=== PATIENT | female | born 1935 | race Caucasian/White ===

== ENCOUNTER → 2018-02-04 10:41 | Outpatient (BNVA) | payer MEDICARE, SELFPAY | PROVIDERS: PCP Family Medicine; Visit Provider Psychiatry & Neurology Neurology | DX: G40.319 Generalized idiopathic epilepsy and epileptic syndromes, intractable, without status epilepticus (principal); G25.0 Essential tremor | CPT/HCPCS: 99213 ==

== ENCOUNTER 2018-04-29 12:48 | Outpatient (REF) | payer MEDICARE, SELFPAY ==
[2018-05-01 11:32] LABS: IgA 168 mg/dL (85-499); Interpretation SEE COMMENTS; Tissue Transglutaminase IgA <1.2 U/mL (<4.0)
== END 2018-04-29 13:08 ==
LOC: LBN 12:48
PROVIDERS: PCP Family Medicine; Visit Provider Family Medicine
DX: R19.7 Diarrhea, unspecified (principal)
CPT/HCPCS: 82784; 83516

== ENCOUNTER → 2018-06-09 10:29 | Outpatient (BNVA) | payer MEDICARE, MEDICAID, SELFPAY | PROVIDERS: PCP Family Medicine; Visit Provider Psychiatry & Neurology Neurology | DX: G40.319 Generalized idiopathic epilepsy and epileptic syndromes, intractable, without status epilepticus (principal); G25.0 Essential tremor | CPT/HCPCS: 99214 ==

== ENCOUNTER 2018-07-03 11:56 | Outpatient (REF) | payer MEDICARE, SELFPAY ==
[2018-07-03 12:53] LABS: Abs Immature Grans 0.01 k/cumm (0.0-0.09); Absolute Basophil Count 0.03 k/cumm (0.0-0.2); Absolute Eosinophil Count 0.08 k/cumm (0.0-0.7); Absolute Lymphocyte Count 1.95 k/cumm (1.2-3.4); Absolute Monocyte Count 0.65 k/cumm (0.11-0.7); Absolute Neutrophil Count 1.88 k/cumm (1.2-6.7); Basophils % 0.7; Eosinophils % 1.7; HCT 38.5 % (36.0-46.0); HGB 12.3 g/dL (12.0-15.5); Immature Grans % 0.2; Lymphocytes % 42.4; Mean Corp. HGB Concentration 31.9 g/dL (32.0-36.0); Mean Corpuscular Volume 100.3 fL (80-95); Mean Platelet Volume 11.2 fL (8.0-11.0); Monocytes % 14.1; Neutrophils % 40.9; Platelet Count 180 x1000/uL (130-400); RBC 3.84 m/cumm (4.00-5.20); RBC Distribution Width 14.2 % (11.7-14.6)
[2018-07-03 12:54] LABS: VALPROIC ACID 63.2 ug/mL (50-100)
[2018-07-03 13:19] LABS: ALT 20 U/L (12-78); AST 21 U/L (15-37); Albumin 2.9 g/dL (3.4-5.0); Alkaline Phosphatase 88 U/L (46-116); Anion Gap 6.5 mmol/L (3-11); BUN 10 mg/dL (7-18); Bilirubin, Total 0.2 mg/dL (0.2-1.0); CO2 32.5 mmol/L (21.0-32.0); CREATININE 0.59 mg/dL (0.55-1.02); Calcium 9.1 mg/dL (8.5-10.1); Chloride 103 mmol/L (98-107); Glucose 85 mg/dL (70-100); Potassium 4.4 mmol/L (3.5-5.1); Sodium 142 mmol/L (136-145); Total Protein 6.3 g/dL (6.4-8.2)
== END 2018-07-03 12:16 ==
LOC: LBN 11:56
PROVIDERS: PCP Family Medicine; Visit Provider Family Medicine
DX: I10 Essential (primary) hypertension (principal); R56.9 Unspecified convulsions; R53.83 Other fatigue; R63.5 Abnormal weight gain; Z51.81 Encounter for therapeutic drug level monitoring
CPT/HCPCS: 80053; 80164; 84443; 85025

== ENCOUNTER 2018-07-07 01:12 | Outpatient (CLI) | payer MEDICARE, MEDICAID, SELFPAY ==
--- NOTE | 2018-07-07 12:21 | DI.US_ITS ---
SYMPTOM/DIAGNOSIS: LT SIDED ABD PAIN, CHANGE IN STOOLS, CRAMPING ABDOMEN ULTRASOUND: Routine examination. Comparison CT scan is 01/25/16. The aorta and IVC are normal in caliber. No evidence of a hepatic mass is seen. The liver measures 17 cm. in length. The patient is status post cholecystectomy. No biliary ductal dilatation is seen. The common duct measures .6 cm. The pancreas and spleen are unremarkable. The kidneys show no evidence of a solid mass or obstruction. There are a few echogenic foci seen in the renal pelves bilaterally. These may be vascular in nature. Non obstructing stones cannot be entirely excluded. IMPRESSION: Status post cholecystectomy. No acute abnormality is seen sonographically.
== END 2018-07-07 01:32 ==
PROVIDERS: PCP Family Medicine; Visit Provider Family Medicine
DX: R10.32 Left lower quadrant pain (principal); R19.5 Other fecal abnormalities; Z90.49 Acquired absence of other specified parts of digestive tract
CPT/HCPCS: 76700

== ENCOUNTER 2018-10-05 11:12 | Outpatient (REF) | payer MEDICARE, SELFPAY ==
[2018-10-05 11:39] LABS: Abs Immature Grans 0.03 k/cumm (0.0-0.09); Absolute Basophil Count 0.04 k/cumm (0.0-0.2); Absolute Eosinophil Count 0.04 k/cumm (0.0-0.7); Absolute Lymphocyte Count 1.97 k/cumm (1.2-3.4); Absolute Monocyte Count 0.78 k/cumm (0.11-0.7); Absolute Neutrophil Count 4.57 k/cumm (1.2-6.7); Basophils % 0.5; Eosinophils % 0.5; HCT 39.1 % (36.0-46.0); HGB 13.2 g/dL (12.0-15.5); Immature Grans % 0.4; Lymphocytes % 26.5; Mean Corp. HGB Concentration 33.8 g/dL (32.0-36.0); Mean Corpuscular Hemoglobin 31.4 pg (27.0-33.0); Mean Corpuscular Volume 92.9 fL (80-95); Mean Platelet Volume 10.6 fL (8.0-11.0); Monocytes % 10.5; Neutrophils % 61.6; Platelet Count 233 x1000/uL (130-400); RBC 4.21 m/cumm (4.00-5.20); RBC Distribution Width 14.8 % (11.7-14.6); White Blood Cell Count 7.43 k/cumm (4.4-10.8)
[2018-10-05 11:45] LABS: VALPROIC ACID 63.9 ug/mL (50-100)
[2018-10-05 11:52] LABS: ALT 113 U/L (12-78); AST 59 U/L (15-37); Albumin 2.9 g/dL (3.4-5.0); Alkaline Phosphatase 189 U/L (46-116); Anion Gap 10.9 mmol/L (3-11); BUN 12 mg/dL (7-18); Bilirubin, Total 0.5 mg/dL (0.2-1.0); CO2 28.1 mmol/L (21.0-32.0); CREATININE 0.58 mg/dL (0.55-1.02); Chloride 104 mmol/L (98-107); Glucose 99 mg/dL (70-100); Sodium 143 mmol/L (136-145); TSH 0.78 uIU/mL (0.358-3.74); Total Protein 6.3 g/dL (6.4-8.2)
[2018-10-06 18:56] LABS: Primidone 9.3 mcg/mL (5.0 - 12.0)
== END 2018-10-05 11:32 ==
LOC: LBN 11:12
PROVIDERS: PCP Family Medicine; Visit Provider Family Medicine
DX: R53.83 Other fatigue (principal); R41.82 Altered mental status, unspecified; Z51.81 Encounter for therapeutic drug level monitoring; Z79.899 Other long term (current) drug therapy
CPT/HCPCS: 80053; 80164; 80188; 84443; 85025

== ENCOUNTER 2018-10-05 17:39 | Emergency (ER) | payer MEDICARE, MEDICAID, SELFPAY ==
[2018-10-05] VITALS (35 sets, daily range): BP systolic 107–144; BP diastolic 35–95; PULSE 69–78; RESP 11–25; TEMP 36.6; O2SAT 89–96
--- NOTE | 2018-10-05 17:45 | W.ED.GENAD ---
Discharge Plan Disposition Patient Disposition: HOME Condition: Stable Discharge Details Chief Complaint: Nausea/Vomit/Diar Clinical Impression: Mesenteric panniculitis, UTI (urinary tract infection), Hypokalemia Primary Care Provider: Natasha Araujo ED Provider: Shanelle Krause Home Meds and New Rx's Prescriptions: New cephalexin [Keflex] 500 mg capsule 500 mg PO BID Qty: 13 RF: 0 Continued ergocalciferol (vitamin D2) 50,000 unit capsule 50,000 unit PO QWEEK RF: 0 furosemide 20 mg tablet 20 mg PO DAILY RF: 0 alum-mag hydroxide-simeth 200-200-20 mg/5 mL suspension 30 ml PO PRN PRNRF: 0 bismuth subsalicylate 525 mg/15 mL suspension 525 mg PO ONCE PRNRF: 0 divalproex 500 MG tablet extended release 24 hr 2 tab PO BID Qty: 270 RF: 3 ICaps AREDS 1 EACH tablet,delayed release (DR/EC) 1 cap PO BID RF: 0 acetaminophen [Tylenol] 325 MG tablet 650 mg PO PRN RF: 0 loperamide 2 MG tablet 2 mg PO BID RF: 0 divalproex 500 mg Tablet Extended Release 24 Hr 1,000 mg PO BID RF: 0 potassium chloride 10 mEq Capsule, Extended Release 40 meq RF: 0 diphenoxylate-atropine [Lomotil] 2.5-0.025 mg Tablet 1 tab PO Q6H PRNRF: 0 Certavite-Antioxidant 1 EACH tablet 1 tab PO DAILY RF: 0 primidone 250 MG tablet 500 mg PO HS RF: 0 primidone 250 MG tablet 250 mg PO DAILY RF: 0 propranolol 60 MG capsule,extended release 24 hr 60 mg PO DAILY RF: 0 lactase 1 CAP tablet 1 cap PO DIRECTED RF: 0 Discharge Instructions Instructions: Urinary Tract Infection in Women (ED), Hypokalemia (ED) Additional Instructions: Please return immediately to the emergent if you develop any new or worsening symptoms or if you become otherwise concerned. It is extremely important that you make an appointment to be seen soon as possible in follow-up this visit by your primary care doctor. Referrals: Natasha Araujo MD, [place] [Primary Care Provider] - Discharge Data Discharge Date/Time-TO BE ENTERED AT DEPARTURE: 10/06/18 00:20 Medical Decision Making Melissa Rose is an 83 y/o woman with history of epilepsy, hypertension, anxiety, frequent falls who presented to the emergency department with generalized weakness. On exam patient is well and nontoxic appearing. She has mild diffuse abdominal tenderness, the patient states that she thinks this is chronic. Also has known heart murmur. Benign neurologic exam. Unclear etiology of new weakness, infectious versus metabolic versus less likely ACS, intracranial process versus other. Exam/hx not c/w CVA, acute aortic process, PE, meningitis. Plan for EKG, chest x-ray, CT head, screening labs, UA. Will monitor and reassess. UA shows UTI. Patient reporting that she feels much better on reassessment and would like to go back to the [facility] at this point. I did offer her admission to the hospital for her weakness, but she states that she would much prefer to go back to the [facility]. I did call the [facility] and discuss with the nurse the patient has UTI, patient continues to feel as a standing would be somewhat difficult for her but is doing much better and would like to return to the [facility]. I did attempt to contact Dr. Buchanan, patient's PCP, but she was unavailable. I discussed with the nurse that patient would need to see Dr. Duarte in follow-up within the next 24 to 48 hours. I had a lengthy discussion with the patient regarding return to emergency department precautions, importance of outpatient follow-up with her PCP, and home care. Patient verbalized understanding the plan was amenable. Patient was discharged with clear plan for outpatient follow-up. All questions were answered. Patient placed on care management list for outpatient follow-up with PCP. Medical Records Medical records reviewed: Yes I reviewed the patient's medical records. Imaging Data Radiologic Study: Attestation: I personally reviewed and interpreted this imaging study as follows: Radiologist's impression: AP AND LATERAL CHEST: Comparison is made with 12/19/16. The heart size is normal. The aorta shows calcification but is normal in diameter. The lungs appear clear. No infiltrate, effusion or pulmonary edema is seen. IMPRESSION: No acute abnormality. NONCONTRAST HEAD CT: Comparison is made with . No intracranial hemorrhage, mass or acute infarct is seen. There is mild atrophy consistent with the patient's age. The ventricles are normal in size. There is mild patchiness of the white matter which may reflect microvascular changes. The sinuses and mastoid air cells appear clear. The obits are unremarkable. IMPRESSION: No acute abnormality. CT abdomen/Pelvis: FINDINGS: Limitations: Study is partially limited due to significant motion artifact. Tubes, catheters and devices: A balloon bladder catheter is present. Lungs: Mild atelectasis/scarring of the lung bases without acute findings. ABDOMEN: Liver: The liver is mildly enlarged measuring 18 cm. No acute liver body. Gallbladder and bile ducts: Patient status post cholecystectomy. No biliary ductal dilation. Pancreas: Normal. No ductal dilation. Spleen: Normal. No splenomegaly. Adrenals: Normal. No mass. Kidneys and ureters: Normal. No hydronephrosis. Stomach and bowel: There are several jejunal loops with questionable wall thickening. Jejunal diverticula are noted as well. No other segmental bowel wall thickening. No bowel obstruction. Appendix: No evidence of appendicitis. PELVIS: Bladder: Urinary bladder is underdistended due to intraluminal Porter, and therefore difficult to evaluate. Reproductive: Unremarkable as visualized. ABDOMEN and PELVIS: Intraperitoneal space: No mesenteric free fluid or fluid collections. No pneumoperitoneum. Bones/joints: No acute skeletal abnormality or aggressive osseous lesion. T11 vertebral body hemangioma is noted. Soft tissues: Unremarkable. Vasculature: The vasculature demonstrates diffuse mild atherosclerotic calcification. Lymph nodes: There is mesenteric haziness and several prominent mesenteric lymph nodes. For example, a 1 cm mesenteric lymph node is seen on image 32 series 4. IMPRESSION: 1. Findings as can be seen with sclerosing mesenteritis/mesenteric panniculitis. 2. Questionable mild acute enteritis (jejunitis). No bowel obstruction. 3. Other chronic/incidental findings as detailed above. Lab Data Lab results reviewed: Yes I reviewed the patient's lab results. 10/05/18 19:10 Urine - Reflex from Ua Urine Culture - Pending 10/05/18 18:55 Blood Blood Culture - Pending 10/05/18 18:45 Blood Blood Culture - Pending Laboratory Tests Range/Units 10/05/18 10/05/18 10/05/18 18:25 18:25 18:25 WBC (4.4-10.8) k/cumm 7.47 RBC (4.00-5.20) m/cumm 4.18 Hgb (12.0-15.5) g/dL 13.4 Hct (36.0-46.0) % 38.6 MCV (80-95) fL 92.3 MCH (27.0-33.0) pg 32.1 MCHC (32.0-36.0) g/dL 34.7 RDW (11.7-14.6) % 14.7 H Plt Count (130-400) x1000/uL 236 MPV (8.0-11.0) fL 10.2 Immature Gran % See Differential Neutrophils % 55.0 Lymphocytes % 30.0 Atypical Lymphs % 7 Monocytes % 6.0 Eosinophils % 2.0 Basophils % 0.0 Absolute Neutrophils (1.2-6.7) k/cumm 4.11 Absolute Lymphocytes (1.2-3.4) k/cumm 2.76 Absolute Monocytes (0.11-0.7) k/cumm 0.45 Absolute Eosinophils (0.0-0.7) k/cumm 0.15 Absolute Basophils (0.0-0.2) k/cumm 0.00 Differential Comment Manual differential RBC Morphology Normal Sodium (136-145) mmol/L 143 Potassium (3.5-5.1) mmol/L 3.2 L Chloride (98-107) mmol/L 104 Carbon Dioxide (21.0-32.0) mmol/L 28.9 Anion Gap (3-11) mmol/L 10.1 BUN (7-18) mg/dL 11 Creatinine (0.55-1.02) mg/dL 0.56 Estimated GFR/1.73 m2 (mL/min/1.73m2) >= 60.00 Glucose (70-100) mg/dL 88 Lactate (0.6-1.4) mmol/l 1.8 H Calcium (8.5-10.1) mg/dL 8.9 Total Bilirubin (0.2-1.0) mg/dL 0.4 AST (15-37) U/L 50 H ALT (12-78) U/L 104 H Alkaline Phosphatase (46-116) U/L 174 H Troponin I (0.00-0.06) ng/mL < 0.02 Total Protein (6.4-8.2) g/dL 6.6 Albumin (3.4-5.0) g/dL 2.8 L Lipase (73-393) U/L TSH (0.358-3.74) uIU/mL 1.36 Urine Color (Yellow) Urine Clarity Urine pH (5-8) Ur Specific Stanley (1.005-1.025) Urine Protein (Negative) mg/dL Urine Ketones (Negative) mg/dL Urine Blood (Negative) Urine Nitrite (Negative) Urine Bilirubin (Negative) Urine Urobilinogen (Up TO 0.2) EU/dL Ur Leukocyte Esterase (Negative) Urine RBC Urine WBC (0-5) HPF Ur Epithelial Cells Urine Crystals Urine Bacteria (Negative) HPF Urine Mucus Ur Culture Indicated? Urine Glucose (Negative) mg/dL Range/Units 10/05/18 10/05/18 10/05/18 18:25 19:10 22:34 WBC (4.4-10.8) k/cumm RBC (4.00-5.20) m/cumm Hgb (12.0-15.5) g/dL Hct (36.0-46.0) % MCV (80-95) fL MCH (27.0-33.0) pg MCHC (32.0-36.0) g/dL RDW (11.7-14.6) % Plt Count (130-400) x1000/uL MPV (8.0-11.0) fL Immature Gran % Neutrophils % Lymphocytes % Atypical Lymphs % Monocytes % Eosinophils % Basophils % Absolute Neutrophils (1.2-6.7) k/cumm Absolute Lymphocytes (1.2-3.4) k/cumm Absolute Monocytes (0.11-0.7) k/cumm Absolute Eosinophils (0.0-0.7) k/cumm Absolute Basophils (0.0-0.2) k/cumm Differential Comment RBC Morphology Sodium (136-145) mmol/L Potassium (3.5-5.1) mmol/L Chloride (98-107) mmol/L Carbon Dioxide (21.0-32.0) mmol/L Anion Gap (3-11) mmol/L BUN (7-18) mg/dL Creatinine (0.55-1.02) mg/dL Estimated GFR/1.73 m2 (mL/min/1.73m2) Glucose (70-100) mg/dL Lactate (0.6-1.4) mmol/l Calcium (8.5-10.1) mg/dL Total Bilirubin (0.2-1.0) mg/dL AST (15-37) U/L ALT (12-78) U/L Alkaline Phosphatase (46-116) U/L Troponin I (0.00-0.06) ng/mL < 0.02 Total Protein (6.4-8.2) g/dL Albumin (3.4-5.0) g/dL Lipase (73-393) U/L 255 TSH (0.358-3.74) uIU/mL Urine Color (Yellow) Yellow Urine Clarity Sl cloudy Urine pH (5-8) 6.5 Ur Specific Stanley (1.005-1.025) 1.015 Urine Protein (Negative) mg/dL 100 H Urine Ketones (Negative) mg/dL Trace H Urine Blood (Negative) Moderate H Urine Nitrite (Negative) Negative Urine Bilirubin (Negative) Negative Urine Urobilinogen (Up TO 0.2) EU/dL 0.2 Ur Leukocyte Esterase (Negative) Large H Urine RBC Not Applicable Urine WBC (0-5) HPF >50 Ur Epithelial Cells Not Applicable Urine Crystals Not Applicable Urine Bacteria (Negative) HPF Moderate Urine Mucus Not Applicable Ur Culture Indicated? Yes Urine Glucose (Negative) mg/dL Negative ECG Data Attestation: I personally reviewed and interpreted this ECG (s) as follows: Interpretation: EKG shows sinus rhythm at 73, normal axis, no acute ischemic changes, nondiagnostic EKG HPI General Mode of arrival: EMS. Date/Time Provider Initiated Documentation: 10/05/18 17:45. Limitations to Documentation: no limitations. Information obtained by: patient, RN notes reviewed and old records reviewed. HPI Narrative: Melissa Rose is an 83-year-old woman with history of hypertension, anxiety, frequent falls, epilepsy presenting to the emergency department with generalized weakness. Patient currently resides at the [facility]. Patient reports that over the past few days she has felt more tired than usual. She reports that she saw her PCP today for this. Patient reports that she has had some diarrhea over the past 3 days, but this is not been watery or copious. Last week he is having any pain, patient states no nothing hurts, but when asked specifically about abdominal pain she reports that she has chronic abdominal pain that seems may be a little worse today. Patient states that she usually is able to get out of bed and pivot to a wheelchair, although she states that today she feels too weak all over to do that. She denies fever, cough, shortness of breath, vomiting, rash. She reports that she has been eating and drinking as usual. Related Data Home Medications Medication Instructions Recorded Confirmed divalproex 2 tab PO BID #270 tab NS 12/25/15 10/05/18 ICaps AREDS 1 cap PO BID 03/26/16 10/05/18 Certavite-Antioxidant 1 tab PO DAILY 10/03/16 10/05/18 primidone 250 mg PO DAILY 10/03/16 10/05/18 primidone 500 mg PO HS 10/03/16 10/05/18 propranolol 60 mg PO DAILY 10/03/16 10/05/18 acetaminophen [Tylenol] 650 mg PO PRN tab-cap 11/18/16 10/05/18 lactase 1 cap PO DIRECTED 12/19/16 10/05/18 loperamide 2 mg PO BID 08/12/17 10/05/18 ergocalciferol (vitamin D2) 50,000 50,000 unit PO QWEEK 02/04/18 06/09/18 unit capsule furosemide 20 mg tablet 20 mg PO DAILY 02/04/18 06/09/18 aluminum-mag hydroxide-simethicone 30 ml PO PRN PRN ml 06/09/18 10/05/18 200 mg-200 mg-20 mg/5 mL oral susp bismuth subsalicylate 525 mg/15 mL 525 mg PO ONCE PRN 06/09/18 10/05/18 oral suspension cephalexin [Keflex] 500 mg PO BID #13 cap 10/05/18 diphenoxylate-atropine [Lomotil] 1 tab PO Q6H PRN 10/05/18 10/05/18 divalproex 1,000 mg PO BID 10/05/18 10/05/18 potassium chloride 40 meq 10/05/18 Previous Rx's Medication Instructions Recorded cephalexin [Keflex] 500 mg PO BID #13 cap 10/05/18 Allergies Allergy/AdvReac Type Severity Reaction Status Date / Time ethosuximide Allergy Intermediate Unverified 10/05/18 17:51 lactose AdvReac Intermediate Intolerant Unverified 10/05/18 17:51 Review of Systems Review of Systems Constitutional: denies fevers, reports generalized weakness Eyes: denies eye pain ENT: denies facial pain, dental pain, sore throat Cardiovascular: denies chest pain, edema Respiratory: denies SOB, cough GI: denies vomiting, reports diarrhea, chronic abdominal pain : denies flank pain MSK: denies back pain, neck pain, arthralgias, myalgias Skin: denies rash Neuro: denies headaches, numbness, focal weakness [facility] Medical History Lumbar stenosis with neurogenic claudication (Chronic) Vaginal spotting (Chronic 01/26/16) Urgency of urination (Chronic) Nuclear cataract (Chronic 09/21/13) Low back pain (Chronic) Lactose intolerance (Chronic 04/24/91) 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. She has 4 grown children. She has never driven. She does not smoke, drink ETOH, or use illicit drugs. Exam Narrative Exam Narrative: Constitutional: well and [id number], pleasant, conversing normally HENT: head atraumatic/normocephalic/normal inspection, mucous membranes moist Eyes: conjunctiva normal, sclera normal, pupils 3mm b/l Neck: no stridor, normal ROM, trachea midline Chest: normal inspection Resp: normal work of breathing, LCTAB Cardio: normal rate, normal rhythm, 3/6 systolic murmur GI: abdomen soft, mild generalized tenderness, non-distended Back: normal inspection, no rash Skin: warm, dry, normal color, no rash Neuro: alert, not altered, grossly non-focal, normal tone Ext: Trace edema bilateral lower extremities, no posterior calf tenderness Psych: normal mood, normal affect, normal behavior
--- NOTE | 2018-10-05 18:27 | DI.RAD_ITS ---
SYMPTOM/DIAGNOSIS: WEAKNESS AP AND LATERAL CHEST: Comparison is made with 12/19/16. The heart size is normal. The aorta shows calcification but is normal in diameter. The lungs appear clear. No infiltrate, effusion or pulmonary edema is seen. IMPRESSION: No acute abnormality.
[2018-10-05 18:41] LABS: Abs Immature Grans 0.03 k/cumm (0.0-0.09); HCT 38.6 % (36.0-46.0); HGB 13.4 g/dL (12.0-15.5); Lactate-non-spesis 1.8 mmol/l (0.6-1.4); Mean Corp. HGB Concentration 34.7 g/dL (32.0-36.0); Mean Corpuscular Hemoglobin 32.1 pg (27.0-33.0); Mean Corpuscular Volume 92.3 fL (80-95); Mean Platelet Volume 10.2 fL (8.0-11.0); Platelet Count 236 x1000/uL (130-400); RBC 4.18 m/cumm (4.00-5.20); RBC Distribution Width 14.7 % (11.7-14.6); White Blood Cell Count 7.47 k/cumm (4.4-10.8)
[2018-10-05 19:09] LABS: ALT 104 U/L (12-78); AST 50 U/L (15-37); Albumin 2.8 g/dL (3.4-5.0); Alkaline Phosphatase 174 U/L (46-116); Anion Gap 10.1 mmol/L (3-11); BUN 11 mg/dL (7-18); Bilirubin, Total 0.4 mg/dL (0.2-1.0); CO2 28.9 mmol/L (21.0-32.0); CREATININE 0.56 mg/dL (0.55-1.02); Calcium 8.9 mg/dL (8.5-10.1); Chloride 104 mmol/L (98-107); Glucose 88 mg/dL (70-100); Potassium 3.2 mmol/L (3.5-5.1); Sodium 143 mmol/L (136-145); TSH (W/Ref FT4) 1.36 uIU/mL (0.358-3.74); Total Protein 6.6 g/dL (6.4-8.2)
[2018-10-05 19:20] LABS: Troponin I < 0.02 ng/mL (0.00-0.06)
[2018-10-05 19:22] LABS: Absolute Eosinophil Count 0.15 k/cumm (0.0-0.7); Absolute Lymphocyte Count 2.76 k/cumm (1.2-3.4); Absolute Monocyte Count 0.45 k/cumm (0.11-0.7); Absolute Neutrophil Count 4.11 k/cumm (1.2-6.7); Atypical Lymphocytes % 7; Diff Comment Manual Differential; RBC Morphology Normal
--- NOTE | 2018-10-05 19:25 | DI.CT_ITS ---
SYMPTOMS/DIAGNOSIS: WEAKNESS NONCONTRAST HEAD CT: Comparison is made with [id number]. No intracranial hemorrhage, mass or acute infarct is seen. There is mild atrophy consistent with the patient's age. The ventricles are normal in size. There is mild patchiness of the white matter which may reflect microvascular changes. The sinuses and mastoid air cells appear clear. The obits are unremarkable. IMPRESSION: No acute abnormality.
[2018-10-05 19:42] LABS: Bilirubin Negative (Negative); Blood Moderate (Negative); Clarity Sl Cloudy; Glucose Negative (Negative); Ketones Trace mg/dL (Negative); Leukocyte Esterase Large (Negative); Nitrite Negative (Negative); Specific Gravity 1.015 (1.005-1.025); Urobilinogen 0.2 EU/dL (Up TO 0.2); pH 6.5 (5-8)
--- NOTE | 2018-10-05 19:45 | DI.VRAD_ITS ---
EXAM: XR Chest, 2 Views EXAM DATE/TIME: 10/05/2018 6:27 PM CLINICAL HISTORY: 83 years old, female; Signs and symptoms; Other: Weakness TECHNIQUE: Imaging protocol: XR of the chest, 2 views. COMPARISON: CR CHEST 2 VIEWS PA,LAT 12/19/2016 6:20 PM FINDINGS: Lungs: Unremarkable. No consolidation. Pleural space: Unremarkable. No pleural effusion. No pneumothorax. Heart/Mediastinum: Stable/normal sized cardiomediastinal silhouette. Vasculature: Stable calcified aortic knob. Bones/joints: No acute skeletal abnormality. IMPRESSION: Negative for acute thoracic pathology. Dictated and Authenticated by: Rafita Waters MD. Ordering:LYDIA Timmons MD
--- NOTE | 2018-10-05 19:47 | DI.VRAD_ITS ---
EXAM: CT Head Without Contrast EXAM DATE/TIME: 10/05/2018 6:27 PM CLINICAL HISTORY: 83 years old, female; Signs and symptoms; Other: Weakness TECHNIQUE: Imaging protocol: Axial computed tomography images of the head without contrast. Coronal and sagittal reformatted images were created and reviewed. COMPARISON: CT HEAD AND CSPINE W/O CONTRAST 08/26/2016 9:17 AM FINDINGS: Brain: Age related brain involution is present. No acute intracranial hemorrhage, mass effect, midline shift, or brain herniation. Diffuse subcortical and periventricular white matter hypodensities are most in favor with chronic small vessel disease. Ventricles: Compensatory exvacuo ventriculomegaly is present. Bones/joints: Unremarkable. No acute fracture. Sinuses: Visualized sinuses are unremarkable. No fluid levels. Mastoid air cells: Visualized mastoid air cells are well aerated. No mastoid effusion. Orbits: There have been bilateral intraocular lens replacements. Soft tissues: Unremarkable. IMPRESSION: 1. Negative for acute intracranial pathology. 2. Chronic findings as detailed above. Dictated and Authenticated by: Rafita Waters MD. Ordering:LYDIA Timmons MD
[2018-10-05 19:56] LABS: Lipase 255 U/L (73-393)
[2018-10-05 19:57] LABS: Bacteria Moderate HPF (Negative); C & S Indicated? Yes; WBC >50 HPF (0-5)
--- NOTE | 2018-10-05 20:10 | DI.CT_ITS ---
SYMPTOMS/DIAGNOSIS: ABDOMINAL PAIN CT OF THE ABDOMEN AND PELVIS: Comparison is made with January,. The exam is limited by patient motion. The exam was performed after IV and without oral contrast. The lung bases show dependent changes. The liver, spleen, pancreas, kidneys and adrenals are grossly normal given degree of motion artifact. The patient is status post cholecystectomy. A pelvic catheter is seen in the urinary bladder. There is increased haziness within the mesenteric fat centrally, which could indicate mesenteric panniculitis. This was not seen on the previous exam. There is no bowel dilatation or gross evidence of inflammatory change. The aorta shows calcification but is normal in diameter. IMPRESSION: Increased haziness in the central abdominal fat could indicate mesenteric panniculitis.
[2018-10-05] MEDS: Omnipaque 350 MG/ML 100 ML BTL IJ (20:21)
--- NOTE | 2018-10-05 20:23 | DI.VRAD_ITS ---
EXAM: CT Abdomen and Pelvis With Contrast EXAM DATE/TIME: 10/05/2018 7:41 PM CLINICAL HISTORY: 83 years old, female; Abdominal pain and other: Back; Generalized; Patient HX: Nausea, vomiting, diarhhea and weakness TECHNIQUE: Imaging protocol: Axial computed tomography images of the abdomen and pelvis with intravenous contrast. Coronal and sagittal reformatted images were created and reviewed. Radiation optimization: All CT scans at this facility use at least one of these dose optimization techniques: automated exposure control; mA and/or kV adjustment per patient size (includes targeted exams where dose is matched to clinical indication); or iterative reconstruction. Contrast material: OMNIPAQUE 350; Contrast volume: 100 ml; Contrast route: IV; COMPARISON: CT CHEST FOR PE, ABD PELVIS W 10/03/2016 9:18 PM FINDINGS: Limitations: Study is partially limited due to significant motion artifact. Tubes, catheters and devices: A balloon bladder catheter is present. Lungs: Mild atelectasis/scarring of the lung bases without acute findings. ABDOMEN: Liver: The liver is mildly enlarged measuring 18 cm. No acute liver body. Gallbladder and bile ducts: Patient status post cholecystectomy. No biliary ductal dilation. Pancreas: Normal. No ductal dilation. Spleen: Normal. No splenomegaly. Adrenals: Normal. No mass. Kidneys and ureters: Normal. No hydronephrosis. Stomach and bowel: There are several jejunal loops with questionable wall thickening. Jejunal diverticula are noted as well. No other segmental bowel wall thickening. No bowel obstruction. Appendix: No evidence of appendicitis. PELVIS: Bladder: Urinary bladder is underdistended due to intraluminal Porter, and therefore difficult to evaluate. Reproductive: Unremarkable as visualized. ABDOMEN and PELVIS: Intraperitoneal space: No mesenteric free fluid or fluid collections. No pneumoperitoneum. Bones/joints: No acute skeletal abnormality or aggressive osseous lesion. T11 vertebral body hemangioma is noted. Soft tissues: Unremarkable. Vasculature: The vasculature demonstrates diffuse mild atherosclerotic calcification. Lymph nodes: There is mesenteric haziness and several prominent mesenteric lymph nodes. For example, a 1 cm mesenteric lymph node is seen on image 32 series 4. IMPRESSION: 1. Findings as can be seen with sclerosing mesenteritis/mesenteric panniculitis. 2. Questionable mild acute enteritis (jejunitis). No bowel obstruction. 3. Other chronic/incidental findings as detailed above. Dictated and Authenticated by: Rafita Waters MD. Ordering:LYDIA Timmons MD
[2018-10-05] MEDS: Cephalexin 500 MG CAP PO (22:29)
[2018-10-05] MEDS: Normal Saline 250 ML 500 ML IV (22:37)
[2018-10-05 23:05] LABS: Troponin I < 0.02 ng/mL (0.00-0.06)
[2018-10-05] MEDS: Potassium Chloride 20 MEQ TABCR 40 MEQ PO (23:48)
--- NOTE | 2018-10-07 08:29 | PDOC.ERCMPRO ---
Care Management Progress Note 10/06-Dr.K Krause requested assistance with a PCP (Van) f/u in 1-2 days for UTI. Referral faxed to [facility] this am.
== END 2018-10-06 00:20 | disposition home or self-care (01) ==
PROVIDERS: Emergency Provider Student in an Organized Health Care Education/Training Program; PCP Family Medicine
DX: R53.1 Weakness (principal); K65.4 Sclerosing mesenteritis; E87.6 Hypokalemia; N39.0 Urinary tract infection, site not specified; B96.20 Unspecified Escherichia coli [E. coli] as the cause of diseases classified elsewhere; R29.6 Repeated falls; G40.909 Epilepsy, unspecified, not intractable, without status epilepticus; I10 Essential (primary) hypertension
CPT/HCPCS: 36415; 80053; 83690; 87040; 87077; 93005; 99285; 70450; 71046; 74177; 81003; 81015; 83605; 84443; 84484; 85025; 87086; 87186; 93010; J3490

== ENCOUNTER 2018-10-06 15:17 | Outpatient (REF) | payer MEDICARE, SELFPAY ==
[2018-10-07 22:44] LABS: Specimen Description Feces
[2018-10-08 10:47] LABS: Result Positive
== END 2018-10-06 15:37 ==
LOC: LBN 15:17
PROVIDERS: PCP Family Medicine; Visit Provider Family Medicine
DX: R19.7 Diarrhea, unspecified (principal)
CPT/HCPCS: 87324; 87798

== ENCOUNTER 2018-11-13 22:51 | Outpatient (REF) | payer MEDICARE, MEDICAID, SELFPAY ==
[2018-11-13 22:52] LABS: Bilirubin Negative (Negative); Blood Negative (Negative); Clarity Sl Cloudy; Glucose Negative (Negative); Ketones Negative (Negative); Leukocyte Esterase Large (Negative); Nitrite Negative (Negative); Specific Gravity 1.015 (1.005-1.025); Urobilinogen 0.2 EU/dL (Up TO 0.2)
[2018-11-13 23:03] LABS: RBC 0-2 (0-2)
[2018-11-13 23:04] LABS: Bacteria Many HPF (Negative); C & S Indicated? Yes; Casts Negative LPF (Negative); Crystals Negative HPF (Negative); Epithelial Cells Few HPF (Negative); Mucus Negative (Negative)
== END 2018-11-13 23:11 ==
LOC: LBN 22:51
PROVIDERS: PCP Family Medicine; Visit Provider Family Medicine
DX: R30.0 Dysuria (principal)
CPT/HCPCS: 87077; 81003; 81015; 87086; 87186

== ENCOUNTER 2018-12-01 14:05 | Outpatient (REF) | payer MEDICARE, MEDICAID, SELFPAY ==
[2018-12-01 16:02] LABS: Bilirubin Negative (Negative); Blood Trace-intact (Negative); Clarity Sl Cloudy (Clear); Glucose Negative (Negative); Ketones Negative (Negative); Leukocyte Esterase Moderate (Negative); Nitrite Negative (Negative); Urobilinogen 0.2 EU/dL (Up TO 0.2); pH 5.5 (5-8)
[2018-12-01 16:17] LABS: Bacteria Few HPF (Negative); C & S Indicated? Yes; Casts Negative LPF (Negative); Crystals Negative HPF (Negative); Epithelial Cells Rare HPF (Negative); Mucus Negative (Negative); RBC 0-2 (0-2); WBC 20-50 HPF (0-5)
== END 2018-12-01 14:25 ==
LOC: LBN 14:05
PROVIDERS: PCP Family Medicine; Visit Provider Family Medicine
DX: N39.0 Urinary tract infection, site not specified (principal)
CPT/HCPCS: 87077; 81003; 81015; 87086; 87186

== ENCOUNTER → 2018-12-10 08:57 | Outpatient (BNVA) | payer MEDICARE, MEDICAID, SELFPAY | PROVIDERS: PCP Family Medicine; Visit Provider Psychiatry & Neurology Neurology | DX: G40.319 Generalized idiopathic epilepsy and epileptic syndromes, intractable, without status epilepticus (principal); G25.0 Essential tremor; I10 Essential (primary) hypertension; Z99.3 Dependence on wheelchair | CPT/HCPCS: 99213 ==

== ENCOUNTER 2019-03-30 10:06 | Outpatient (REF) | payer MEDICARE, MEDICAID, SELFPAY ==
[2019-03-30 10:58] LABS: Abs Immature Grans 0.02 k/cumm (0.0-0.09); Absolute Basophil Count 0.03 k/cumm (0.0-0.2); Absolute Eosinophil Count 0.07 k/cumm (0.0-0.7); Absolute Lymphocyte Count 1.92 k/cumm (1.2-3.4); Absolute Monocyte Count 0.62 k/cumm (0.11-0.7); Absolute Neutrophil Count 2.93 k/cumm (1.2-6.7); Basophils % 0.5; Eosinophils % 1.3; HCT 39.8 % (36.0-46.0); HGB 12.8 g/dL (12.0-15.5); Immature Grans % 0.4; Lymphocytes % 34.3; Mean Corp. HGB Concentration 32.2 g/dL (32.0-36.0); Mean Corpuscular Hemoglobin 32.3 pg (27.0-33.0); Mean Corpuscular Volume 100.5 fL (80-95); Mean Platelet Volume 10.8 fL (8.0-11.0); Monocytes % 11.1; Neutrophils % 52.4; Platelet Count 177 x1000/uL (130-400); RBC 3.96 m/cumm (4.00-5.20); RBC Distribution Width 14.8 % (11.7-14.6); White Blood Cell Count 5.59 k/cumm (4.4-10.8)
[2019-03-30 11:15] LABS: ALT 27 U/L (14-59); AST 36 U/L (15-37); Albumin 2.6 g/dL (3.4-5.0); Alkaline Phosphatase 88 U/L (46-116); Anion Gap 9.1 mmol/L (3-11); BUN 9 mg/dL (7-18); Bilirubin, Total 0.3 mg/dL (0.2-1.0); CO2 30.9 mmol/L (21.0-32.0); CREATININE 0.48 mg/dL (0.55-1.02); Calcium 8.8 mg/dL (8.5-10.1); Chloride 104 mmol/L (98-107); Glucose 87 mg/dL (70-100); Magnesium 1.5 mg/dL (1.8-2.4); Sodium 144 mmol/L (136-145); Total Protein 5.9 g/dL (6.4-8.2)
== END 2019-03-30 10:26 ==
LOC: LBN 10:06
PROVIDERS: PCP Family Medicine; Visit Provider Nurse Practitioner Gerontology
DX: I10 Essential (primary) hypertension (principal); R53.83 Other fatigue; R25.2 Cramp and spasm
CPT/HCPCS: 80053; 83735; 85025

== ENCOUNTER 2019-04-06 00:37 | Outpatient (CLI) | payer MEDICARE, MEDICAID, SELFPAY ==
--- NOTE | 2019-04-06 13:00 | DI.CT_ITS ---
EXAM: CT ABDOMEN PELVIS W CLINICAL HISTORY: POSSIBLE MESENTERIC PANNICULITIS, PAIN, DIARRHEA, CRAMPS TECHNIQUE: Imaging Protocol: Axial computed tomography images with coronal and sagittal reformatted images were created and reviewed CONTRAST MATERIAL: Intravenous: Omnipaque 350 Contrast volume:100 mL contrast route:IV - Oral: Yes COMPARISON: CT ABDOMEN PELVIS W from 10/05/2018 FINDINGS: ABDOMEN: There is patient motion artifact. Lung Bases: Dependent atelectatic changes are seen in the lung bases. Liver: Normal density. No measurable mass. The portal, superior mesenteric and splenic veins are rosas nt. Gallbladder and biliary tract: The patient is status post cholecystectomy. There is no biliary ducta l dilatation. Pancreas: Normal density, no abnormal calcifications or inflammatory process. Spleen: Normal. Kidneys: Normal size, contour and axis. No radiodense stones or obstructive uropathy. No masses seen. Adrenal glands: No masses seen. Abdominal Aorta: Abdominal portion non-dilated. Atherosclerosis. PELVIS: Bladder: There is diffuse urinary bladder wall thickening. No intraluminal masses appreciated. Bowel: No obstruction or bowel wall thickening. Peritoneal cavity: No ascites is present. There is decreased haziness in the mesentery compared to t he prior examination. Bones: There are degenerative changes seen in the spine. Grade 1 pseudospondylolisthesis of L4 on L5 is noted. There is a hemangioma in the T11 vertebral body. Reproductive organs: Within normal limits. Lymph nodes: Unremarkable. Impression: 1. Minimal residual haziness in the mesentery compared to the examination from 10/05/2018. 2. Diffuse thickening of the wall of the urinary bladder. May be secondary to an inflammatory or inf ectious process. Please correlate clinically. DATA REPOSITORY: All CT scans at this facility are submitted to the National Radiology Data Registry (NRDR) Dose Index Registry (DIR) with the [employer] (A[employer]). RADIATION OPTIMIZATION: All CT scans at this facility use at least one of these dose optimization te chniques: automated exposure control; mA and/or kV adjustment per patient size (includes targeted exa ms where dose is matched to clinical indication); or iterative reconstruction.
[2019-04-06] MEDS: Omnipaque 350 MG/ML 100 ML BTL IJ (15:15)
== END 2019-04-06 00:57 ==
PROVIDERS: PCP Family Medicine; Visit Provider Nurse Practitioner Gerontology
DX: R10.9 Unspecified abdominal pain (principal); R19.7 Diarrhea, unspecified; N32.9 Bladder disorder, unspecified; K66.8 Other specified disorders of peritoneum
CPT/HCPCS: 74177; J3490

== ENCOUNTER 2019-04-12 10:00 | Outpatient (REF) | payer MEDICARE, MEDICAID, SELFPAY ==
[2019-04-12 11:19] LABS: Abs Immature Grans 0.02 k/cumm (0.0-0.09); Absolute Basophil Count 0.03 k/cumm (0.0-0.2); Absolute Eosinophil Count 0.07 k/cumm (0.0-0.7); Absolute Lymphocyte Count 1.67 k/cumm (1.2-3.4); Absolute Monocyte Count 0.65 k/cumm (0.11-0.7); Absolute Neutrophil Count 3.92 k/cumm (1.2-6.7); Basophils % 0.5; Eosinophils % 1.1; HCT 40.6 % (36.0-46.0); HGB 13.1 g/dL (12.0-15.5); Immature Grans % 0.3; Lymphocytes % 26.3; Mean Corp. HGB Concentration 32.3 g/dL (32.0-36.0); Mean Corpuscular Hemoglobin 32.4 pg (27.0-33.0); Mean Corpuscular Volume 100.5 fL (80-95); Monocytes % 10.2; Neutrophils % 61.6; Platelet Count 210 x1000/uL (130-400); RBC 4.04 m/cumm (4.00-5.20); RBC Distribution Width 15.3 % (11.7-14.6); White Blood Cell Count 6.36 k/cumm (4.4-10.8)
[2019-04-12 11:41] LABS: ALT 96 U/L (14-59); AST 111 U/L (15-37); Albumin 2.7 g/dL (3.4-5.0); Alkaline Phosphatase 233 U/L (46-116); Anion Gap 6.6 mmol/L (3-11); BUN 13 mg/dL (7-18); Bilirubin, Total 0.6 mg/dL (0.2-1.0); CO2 32.4 mmol/L (21.0-32.0); CREATININE 0.46 mg/dL (0.55-1.02); Calcium 8.8 mg/dL (8.5-10.1); Chloride 104 mmol/L (98-107); Glucose 77 mg/dL (70-100); Potassium 3.9 mmol/L (3.5-5.1); Sodium 143 mmol/L (136-145)
[2019-04-12 15:16] LABS: Bilirubin Negative (Negative); Blood Trace-intact (Negative); Clarity Clear (Clear); Glucose Negative (Negative); Ketones Negative (Negative); Leukocyte Esterase Trace (Negative); Nitrite Negative (Negative); Urobilinogen 0.2 EU/dL (Up TO 0.2)
[2019-04-12 15:27] LABS: Bacteria Few HPF (Negative); C & S Indicated? Yes; Casts Negative LPF (Negative); Crystals Negative HPF (Negative); Epithelial Cells Negative HPF (Negative); Mucus Negative (Negative); Other Cells Negative (Negative)
[2019-04-14 15:22] LABS: IgA 198 mg/dL (85-499); Interpretation (See Note); Tissue Transglutaminase IgA <1.2 U/mL (<4.0)
== END 2019-04-12 10:20 ==
LOC: LBN 10:00
PROVIDERS: PCP Family Medicine; Visit Provider Family Medicine
DX: I10 Essential (primary) hypertension (principal); R10.9 Unspecified abdominal pain; R19.7 Diarrhea, unspecified; R53.83 Other fatigue; N32.89 Other specified disorders of bladder
CPT/HCPCS: 80053; 82784; 83516; 87077; 81003; 81015; 85025; 87086; 87186

== ENCOUNTER 2019-04-29 09:32 | Outpatient (REF) | payer MEDICARE, MEDICAID, SELFPAY ==
[2019-04-29 10:37] LABS: HCT 42.1 % (36.0-46.0); Mean Corp. HGB Concentration 33.3 g/dL (32.0-36.0); Mean Corpuscular Hemoglobin 33.5 pg (27.0-33.0); Mean Corpuscular Volume 100.7 fL (80-95); Mean Platelet Volume 10.9 fL (8.0-11.0); Platelet Count 224 x1000/uL (130-400); RBC 4.18 m/cumm (4.00-5.20); RBC Distribution Width 15.2 % (11.7-14.6); White Blood Cell Count 6.58 k/cumm (4.4-10.8)
[2019-04-29 10:57] LABS: VALPROIC ACID 76.2 ug/mL (50-100)
[2019-04-29 10:58] LABS: ALT 54 U/L (14-59); AST 51 U/L (15-37); Albumin 2.9 g/dL (3.4-5.0); Alkaline Phosphatase 264 U/L (46-116); Anion Gap 7.1 mmol/L (3-11); BUN 13 mg/dL (7-18); Bilirubin, Direct 0.17 mg/dL (0.00-0.20); Bilirubin, Total 0.3 mg/dL (0.2-1.0); CO2 31.9 mmol/L (21.0-32.0); CREATININE 0.41 mg/dL (0.55-1.02); Chloride 103 mmol/L (98-107); Glucose 91 mg/dL (74-106); Potassium 4.4 mmol/L (3.5-5.1); Sodium 142 mmol/L (136-145); Total Protein 6.6 g/dL (6.4-8.2)
== END 2019-04-29 09:52 ==
LOC: LBN 09:32
PROVIDERS: PCP Family Medicine; Visit Provider Nurse Practitioner Gerontology
DX: G40.319 Generalized idiopathic epilepsy and epileptic syndromes, intractable, without status epilepticus (principal); G25.0 Essential tremor; I10 Essential (primary) hypertension; R53.83 Other fatigue; Z79.899 Other long term (current) drug therapy; Z51.81 Encounter for therapeutic drug level monitoring
CPT/HCPCS: 80048; 80076; 85027; 80164

== ENCOUNTER 2019-05-03 10:42 | Outpatient (REF) | payer MEDICARE, MEDICAID, SELFPAY ==
[2019-05-03 11:00] LABS: Abs Immature Grans 0.03 k/cumm (0.0-0.09); Absolute Basophil Count 0.02 k/cumm (0.0-0.2); Absolute Eosinophil Count 0.02 k/cumm (0.0-0.7); Absolute Lymphocyte Count 1.56 k/cumm (1.2-3.4); Absolute Monocyte Count 1.33 k/cumm (0.11-0.7); Absolute Neutrophil Count 6.98 k/cumm (1.2-6.7); Basophils % 0.2; Eosinophils % 0.2; HCT 38.6 % (36.0-46.0); HGB 12.4 g/dL (12.0-15.5); Immature Grans % 0.3; Lymphocytes % 15.7; Mean Corp. HGB Concentration 32.1 g/dL (32.0-36.0); Mean Corpuscular Volume 102.7 fL (80-95); Mean Platelet Volume 10.9 fL (8.0-11.0); Monocytes % 13.4; Neutrophils % 70.2; Platelet Count 223 x1000/uL (130-400); RBC 3.76 m/cumm (4.00-5.20); RBC Distribution Width 15.4 % (11.7-14.6); White Blood Cell Count 9.94 k/cumm (4.4-10.8)
[2019-05-03 11:02] LABS: Bilirubin Negative (Negative); Blood Negative (Negative); Clarity Clear (Clear); Glucose Negative (Negative); Ketones Negative (Negative); Leukocyte Esterase Small (Negative); Nitrite Positive (Negative); Specific Gravity 1.015 (1.005-1.025); Urobilinogen 0.2 EU/dL (Up TO 0.2); pH 5.5 (5-8)
[2019-05-03 11:11] LABS: ALT 47 U/L (14-59); AST 40 U/L (15-37); Albumin 2.4 g/dL (3.4-5.0); Alkaline Phosphatase 231 U/L (46-116); Anion Gap 9.4 mmol/L (3-11); BUN 21 mg/dL (7-18); Bilirubin, Total 0.4 mg/dL (0.2-1.0); CO2 30.6 mmol/L (21.0-32.0); CREATININE 0.77 mg/dL (0.55-1.02); Calcium 8.6 mg/dL (8.5-10.1); Chloride 104 mmol/L (98-107); Glucose 119 mg/dL (74-106); Magnesium 1.7 mg/dL (1.8-2.4); Potassium 3.3 mmol/L (3.5-5.1); Sodium 144 mmol/L (136-145)
[2019-05-03 11:15] LABS: Bacteria Few HPF (Negative); Crystals Negative HPF (Negative); Epithelial Cells Rare HPF (Negative); RBC 0-2 HPF (0-2)
[2019-05-03 11:16] LABS: C & S Indicated? C&S Done As Ordered; Casts 0-2 Hyaline LPF (Negative); Mucus Trace (Negative)
[2019-05-03 11:28] LABS: Diff Comment Diff Reviewed; RBC Morphology Normal
[2019-05-04 10:44] LABS: Hepatitis A Antibody IgM Negative (Negative); Hepatitis B Core Antibody Negative (Negative); Hepatitis B surface Ag Negative (Negative); Hepatitis C Ab w Rflx HCV PCR Negative (Negative)
== END 2019-05-03 11:02 ==
LOC: LBN 10:42
PROVIDERS: PCP Family Medicine; Visit Provider Family Medicine
DX: N39.0 Urinary tract infection, site not specified (principal); R19.7 Diarrhea, unspecified; R74.8 Abnormal levels of other serum enzymes
CPT/HCPCS: 80053; 86704; 86709; 86803; 87077; 87340; 81003; 81015; 83735; 85025; 87086; 87186

== ENCOUNTER 2019-05-07 12:09 | Outpatient (REF) | payer MEDICARE, MEDICAID, SELFPAY ==
[2019-05-07 13:40] LABS: Abs Immature Grans 0.02 k/cumm (0.0-0.09); Absolute Basophil Count 0.03 k/cumm (0.0-0.2); Absolute Eosinophil Count 0.05 k/cumm (0.0-0.7); Absolute Lymphocyte Count 1.56 k/cumm (1.2-3.4); Absolute Monocyte Count 0.93 k/cumm (0.11-0.7); Absolute Neutrophil Count 3.37 k/cumm (1.2-6.7); Basophils % 0.5; Eosinophils % 0.8; HCT 42.3 % (36.0-46.0); HGB 13.5 g/dL (12.0-15.5); Immature Grans % 0.3; Lymphocytes % 26.2; Mean Corp. HGB Concentration 31.9 g/dL (32.0-36.0); Mean Corpuscular Hemoglobin 32.9 pg (27.0-33.0); Mean Corpuscular Volume 103.2 fL (80-95); Mean Platelet Volume 10.5 fL (8.0-11.0); Monocytes % 15.6; Neutrophils % 56.6; Platelet Count 261 x1000/uL (130-400); RBC Distribution Width 15.3 % (11.7-14.6); White Blood Cell Count 5.96 k/cumm (4.4-10.8)
[2019-05-07 14:29] LABS: BUN 16 mg/dL (7-18); CREATININE 0.52 mg/dL (0.55-1.02); Chloride 102 mmol/L (98-107); Glucose 101 mg/dL (74-106); Potassium 4.2 mmol/L (3.5-5.1); Sodium 144 mmol/L (136-145)
== END 2019-05-07 12:29 ==
LOC: LBN 12:09
PROVIDERS: PCP Family Medicine; Visit Provider Nurse Practitioner Gerontology
DX: R06.00 Dyspnea, unspecified (principal); J18.9 Pneumonia, unspecified organism
CPT/HCPCS: 80048; 85025; 85379

== ENCOUNTER 2019-05-07 14:49 | Inpatient (IN) | payer MEDICARE, MEDICAID, SELFPAY ==
[2019-05-07] VITALS (40 sets, daily range): BP systolic 118–165; BP diastolic 54–131; PULSE 66–132; RESP 9–25; TEMP 35.9–36.6; O2SAT 89–95
--- NOTE | 2019-05-07 15:47 | ED.GENADUL_ITS ---
Discharge Plan Disposition Patient Disposition: [facility] INPATIENT Condition: Stable Discharge Details Chief Complaint: GenMedical Clinical Impression: Altered mental status, Pneumonia, UTI (urinary tract infection) Admit Date/Time: 05/07/19 18:07 Admit Provider: Maikel Lopez Attending Provider: Maikel Lopez Primary Care Provider: Natasha Araujo ED Provider: Seema Church Discharge Data Discharge Date/Time-TO BE ENTERED AT DEPARTURE: 05/07/19 19:10 Medical Decision Making <Oliva Aguirre DO - Last Filed: 05/08/19 10:38> 1530 -- 83-year-old female from the [facility] with a history of anxiety, depression, hypertension, seizure disorder presents for multiple complaints including hypoxia, altered mental status today as well as constipation for the past 6 days. Patient is complaining of nausea, abdominal pain and rectal pressure. She is currently receiving Cipro for UTI. Oxygen saturation 89 to 90% on room air increased to mid 90s on 2 L nasal cannula. Abdomen is obese and mild to moderately distended with diffuse tenderness. A large amount of light brown stool in rectal vault. A significant amount of stool digitally removed and patient had some relief of symptoms. Differential diagnosis includes ACS, PE, pneumonia, CHF, electrolyte abnormality, arrhythmia, acute abdominal abnormality, UTI. We will place an IV, bolus IV fluids, screening labs, EKG, urinalysis, CT chest abdomen and pelvis. 1600 -- Case endorsed to YESY Paulino to follow-up on labs and imaging and final disposition. Medical Records Medical records reviewed: Yes I reviewed the patient's medical records. <YESY Grigsby - Last Filed: 05/08/19 20:14> Care was transitioned myself from Dr. Aguirre with imaging pending. Please see her note for initial presentation and physical exam findings. CT reviewed by radiologist: FINDINGS: Limitations: Motion artifact limits detail. Artifact off the upper opacified superior vena cava further limits evaluation of the right upper lobe arteries. The patient is rotated toward the right with crowding and tortuosity of the right lower lobe vessels. Pulmonary arteries: No filling defect to indicate pulmonary embolism. The pulmonary arteries demonstrate mild central enlargement, consistent with mild pulmonary hypertension. Aorta: Mild aortic wall calcifications. No aortic aneurysm. No aortic dissection. Lungs/Pleural space: Moderate right pleural effusion with adjacent consolidation. Heart: Mild cardiomegaly. No pericardial effusion. Lymph nodes: Unremarkable. No enlarged lymph nodes. Bones/joints: No acute bony abnormality. Incidental T11 benign hemangioma. Soft tissues: Unremarkable. IMPRESSION: 1. Limited exam. 2. Negative for pulmonary embolism, aortic aneurysm or dissection. 3. Chronic pulmonary hypertension. 4. Moderate right pleural effusion with adjacent consolidation which may represent atelectasis or pneumonia. Liver: Liver is enlarged measuring 19 cm in length. No mass. Gallbladder and bile ducts: Cholecystectomy. Pancreas: Unremarkable. No ductal dilation. Spleen: Unremarkable. No splenomegaly. Adrenals: Unremarkable. No mass. Kidneys and ureters: Unremarkable. No hydronephrosis. Stomach and bowel: Fluid throughout normal caliber small bowel and colon to the rectum. Small amount of semisolid stool in the sigmoid colon. Circumferential low density wall thickening with mucosal and enhancement involving the rectum. There is hypervascularity in this region. Small amount of presacral fluid. No lymphadenopathy. No bowel obstruction or perforation. No pneumatosis intestinalis. Appendix: No evidence of appendicitis. Intraperitoneal space: Unremarkable. No free air. No significant fluid adele ection. Vasculature: Atherosclerotic disease, most pronounced in the superior mesenteric artery with irregular partially calcified plaque producing moderate-severe segmental stenosis at the origin and proximal portion. Distally, the proximal branches are normal caliber and patent. Abdominal aorta is normal caliber with no dissection. Lymph nodes: Nonspecific prominent periportal lymph nodes. Bladder: Unremarkable as visualized. Reproductive: Unremarkable as visualized. Bones/joints: Unremarkable. No acute fracture. Soft tissues: Unremarkable. IMPRESSION: 1. 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 No signs of bowel ischemia. 2. Possible proctitis. 3. No solid stool to indicate constipation. 4. Hepatomegaly. No mass. Patient will be started on regimen for pneumonia. Labs reviewed. No leukocytosis. Lactate 3.3. No gap. AST elevated at 66, this is baseline for the patient. Alk phos elevated at 360, patient has been elevated historically. Albumin low at 2.5, typical for patient. Troponin normal, BNP unremarkable at 474. reviewed sensitivities from patients recent urine culture, not noted to be resistant to any antibiotics. Will begin IV ceftriaxone and PO azithromycin. Will stop the ciprofloxacin. Will discuss disposition furhter with provider at the [facility]. They are unable to complete IV antibiotics at this time. Therefore, will discuss admission with our hospitalist here. Patient remains comfortable and continues to use nasal cannula. Consulted with Dr. Lopez. He agrees to admission for pneumonia, hypoxia and UTI. HPI <Oliva Ken Aguirre DO - Last Filed: 05/08/19 10:38> General Mode of arrival: EMS . Date/Time Provider Initiated Documentation: 05/07/19 14:55 . Limitations to Documentation: altered mental status and physical limitation . Information obtained by: patient and EMS . HPI Narrative: Patient is an 83-year-old female with a history of anxiety, hypertension, seizure disorder, depression presents for hypoxia today at the [facility] in the mid 80s which improved on 2 to 3 L of nasal cannula. Also noted to have a mental status change with decreased orientation which is changed from her baseline. The [facility] also states that she has not had a bowel movement for the past 6 days. Patient states that she has nausea, abdominal pain and feels pressure in her rectum. She denies any vomiting. She is currently on Cipro for urinary tract infection but patient did not know this. She appears to be a poor historian as she has long delay in providing answers or does not know the answer. Related Data Home Medications Medication Instructions Recorded Confirmed ICaps AREDS 1 cap PO BID 03/26/16 05/07/19 Certavite-Antioxidant 1 tab PO DAILY 10/03/16 05/07/19 primidone 250 mg PO DAILY 10/03/16 05/07/19 primidone 500 mg PO DAILY 10/03/16 10/05/18 propranolol 60 mg PO DAILY 10/03/16 05/07/19 acetaminophen [Tylenol] 650 mg PO PRN tab-cap 11/18/16 05/07/19 lactase 1 cap PO DIRECTED 12/19/16 05/07/19 loperamide 2 mg PO BID 08/12/17 10/05/18 ergocalciferol (vitamin D2) 50,000 50,000 unit PO QWEEK 02/04/18 05/07/19 unit capsule furosemide 20 mg tablet 20 mg PO DAILY 02/04/18 05/07/19 aluminum-mag hydroxide-simethicone 30 ml PO PRN PRN ml 06/09/18 05/07/19 200 mg-200 mg-20 mg/5 mL oral susp bismuth subsalicylate 525 mg/15 mL 525 mg PO ONCE PRN 06/09/18 05/07/19 oral suspension diphenoxylate-atropine [Lomotil] 1 tab PO Q6H PRN 10/05/18 05/07/19 divalproex 1,000 mg PO BID 10/05/18 05/07/19 potassium chloride 40 meq 10/05/18 linezolid 600 mg tablet 600 mg PO BID #10 tab 11/18/18 ciprofloxacin HCl 250 mg tablet 250 mg PO BID #14 tab 05/04/19 05/07/19 Lactobacillus acidophilus 1 cap PO DAILY 05/07/19 05/07/19 [Acidophilus] cholecalciferol (vitamin D3) 50,000 unit PO DAILY 05/07/19 05/07/19 [Vitamin D3] magnesium oxide 400 mg PO DAILY 05/07/19 05/07/19 omeprazole 20 mg PO DAILY 05/07/19 05/07/19 ranitidine HCl 300 mg PO DAILY 05/07/19 05/07/19 Previous Rx's Medication Instructions Recorded linezolid 600 mg tablet 600 mg PO BID #10 tab 11/18/18 ciprofloxacin HCl 250 mg tablet 250 mg PO BID #14 tab 05/04/19 Allergies Allergy/AdvReac Type Severity Reaction Status Date / Time ethosuximide Allergy Intermediate Unverified 05/07/19 14:57 lactose AdvReac Intermediate Intolerant Unverified 05/07/19 14:57 General Stated Complaint: GenMedical MILLICENT: 2 Review of Systems <Oliva Aguirre, - Last Filed: 05/08/19 10:38> All systems reviewed & are unremarkable except as noted in HPI and below Constitutional Constitutional: Reports as per HPI, Denies chills and Denies fever(s) Eyes Eyes: Denies blurry vision ENT Ears, Nose, Mouth, and Throat: Denies dizziness, Denies sore throat and Denies throat swelling Cardiovascular Cardiovascular: Denies chest pain and Denies dyspnea Respiratory Respiratory: Denies cough and Denies dyspnea Gastrointestinal Gastrointestinal: Reports abdominal pain, Reports constipation, Denies diarrhea, Reports nausea and Denies vomiting Genitourinary Genitourinary: Denies hematuria and Denies dysuria Musculoskeletal Musculoskeletal: Denies back pain and Denies numbness Integumentary/Breasts Skin/Breast: Denies lesions and Denies rash Neurologic Neurologic: Denies dizziness, Denies focal weakness and Denies numbness Allergic/Immunologic Allergic/Immunologic: Denies throat swelling PFSH <Oliva Aguirre DO - Last Filed: 05/08/19 10:38> Medical History Anxiety (Chronic) 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 KERR S/P RIGHT EYE EXTRACTION 10/05/13; DR. KERR Urgency of urination (Chronic) Vaginal spotting (Chronic 01/26/16) Surgical History Cholecystectomy Extraction of cataract 09/21/13; LEFT 10/05/13; RIGHT H/O tubal ligation (Chronic) Family History Mother Essential hypertension Personal history of malignant neoplasm BREAST Heart disease Stroke Father Personal history of malignant neoplasm BONE Sister Personal history of malignant neoplasm BREAST Heart disease Cirrhosis, alcoholic Transplanted heart Son Arthritis Social History Smoking/Tobacco Use Status: Never Alcohol Intake: never Drug use: Never Substance use type: does not use Housing: fdc Do you feel safe at home: Yes Do you feel safe in your relationship?: Yes Additional Social history: She lives at the [facility]. She has 4 grown children. She has never driven. She does not smoke, drink ETOH, or use illicit drugs. Exam <Oliva Aguirre DO - Last Filed: 05/08/19 10:38> Const General: cooperative, healthy appearing and no acute distress HENMN Head: normal to inspection Face and sinus: normal facial exam Eyes General: appearance normal, both eyes and all related structures Pupils: PERRL EOM: EOM intact bilaterally Neck Neck: normal visual inspection and No submandibular swelling Lymphatic: no lymphadenopathy noted Chest Chest: normal inspection of the chest and no tenderness Resp Effort & Inspection: normal respiratory effort and able to speak in complete sentences Auscultation: clear to auscultation bilaterally Cardio Rate: regular rate Rhythm: regular rhythm GI Inspection: normal to inspection and obesity Palpation: soft, not firm, not rigid and tender (Diffuse) Auscultation: normal bowel sounds and hypoactive bowel sounds Rectal Exam - female: other (Large amount of stool in rectal vault.) Skin General skin exam: no rashes or lesions noted Neuro General: alert, awake and oriented Patient Orientation: Person and Place Speech: speech normal Motor: muscle tone normal throughout Sensory Exam: no sensory deficits noted Extrem General: normal to inspection, full ROM, normal capillary refill, no calf tenderness bilaterally and no edema Psych Appearance: grossly normal Mental Status: mental status grossly normal Speech and Movement: speech and movement normal Affect: normal affect Course <Oliva Aguirre DO - Last Filed: 05/08/19 10:38> Vital Signs Vital signs: Vital Signs Temperature 97.9 F 05/07/19 14:50 Pulse 71 05/07/19 14:50 Respiratory Rate 16 05/07/19 14:50 Blood Pressure 141/61 H 05/07/19 14:50 Pulse Oximetry 94 L 05/07/19 14:50 Temperature 97.9 F 05/07/19 14:50 Temperature Source Temporal Artery Scan 05/07/19 14:50 Pulse 71 05/07/19 14:50 Respiratory Rate 16 05/07/19 14:50 Respiratory Effort Non-Labored 05/07/19 14:50 Respiratory Depth Normal 05/07/19 14:50 Respiratory Pattern Normal 05/07/19 14:50 Blood Pressure 141/61 H 05/07/19 14:50 Blood Pressure Position Sitting 05/07/19 14:50 Pulse Oximetry 94 L 05/07/19 14:50 Oxygen Delivery Method Room Air 05/07/19 14:50 Oxygen Flow Rate 0 05/07/19 14:50 Pain Level 0 05/07/19 14:50 Sign Out <Oliva Aguirre DO - Last Filed: 05/08/19 10:38> Sign Out Data: Sign Out Comment: Follow-up on labs and imaging and final disposition. Last updated by Oliva Aguirre DO at 05/07/19 16:00
[2019-05-07 15:53] LABS: Abs Immature Grans 0.06 k/cumm (0.0-0.09); Absolute Basophil Count 0.04 k/cumm (0.0-0.2); Absolute Eosinophil Count 0.05 k/cumm (0.0-0.7); Absolute Lymphocyte Count 2.09 k/cumm (1.2-3.4); Absolute Monocyte Count 0.89 k/cumm (0.11-0.7); Absolute Neutrophil Count 3.39 k/cumm (1.2-6.7); Basophils % 0.6; Eosinophils % 0.8; HCT 42.2 % (36.0-46.0); HGB 13.4 g/dL (12.0-15.5); Immature Grans % 0.9; Lymphocytes % 32.1; Mean Corp. HGB Concentration 31.8 g/dL (32.0-36.0); Mean Corpuscular Hemoglobin 32.7 pg (27.0-33.0); Mean Corpuscular Volume 102.9 fL (80-95); Mean Platelet Volume 10.2 fL (8.0-11.0); Monocytes % 13.7; Neutrophils % 51.9; Platelet Count 261 x1000/uL (130-400); RBC Distribution Width 15.1 % (11.7-14.6); White Blood Cell Count 6.52 k/cumm (4.4-10.8)
[2019-05-07] MEDS: Normal Saline 500 ML IV ×2 (16:00→18:12)
--- NOTE | 2019-05-07 16:03 | DI.CT_ITS ---
EXAM: CT CHEST PE ABD PELVIS W CLINICAL HISTORY: hypoxic, constipation, abdominal pain,? PE OR SMALL BOWEL OBSTRUCTION TECHNIQUE: Post IV contrast without oral contrast. Axial CT angiography was performed with multi-slice acquisition and multi-planar and/or 3D reconstruc tions. COMPARISON: CT ABDOMEN PELVIS W from 04/06/2019 FINDINGS: Chest CT: The exam is limited by motion artifact. Pulmonary arteries are well opacified with IV cont rast and no emboli are seen. There is dilatation of the pulmonary arteries consistent with pulmonary hypertension. The aorta is normal in diameter and shows mild to moderate calcification. There is no d issection. There is left atrial and left ventricular enlargement. There is a small to moderate sized right pleural effusion with adjacent compressive atelectasis versus infiltrate. There is no pericardi al effusion. Abdomen and pelvic CT: Liver is enlarged. Patient is status post cholecystectomy. There is no biliary dilatation or focal liver lesion. The spleen, adrenals, pancreas, kidneys and urinary bladder are un remarkable. The uterus and ovaries are within normal limits for the patient's age. There is fluid in the colon but no abnormal distension. There is some wall thickening involving the rectum but no signi ficant wall thickening elsewhere. The small bowel is not dilated. There is no ascites. The aorta is n ormal in diameter and shows moderate calcification. Superior mesenteric artery shows moderate to nury re narrowing proximally secondary to plaque. Degenerative changes are seen in the spine. There is a h emangioma in the T11 vertebral body. IMPRESSION: The exam is somewhat limited by patient motion. Right pleural effusion and adjacent atelectasis oliver wilver pneumonia. There is wall thickening of the rectum which could represent proctitis. There are no f indings to suggest bowel ischemia.
[2019-05-07 16:05] LABS: Bilirubin Negative (Negative); Blood Negative (Negative); Clarity Clear (Clear); Glucose Negative (Negative); Ketones Trace mg/dL (Negative); Leukocyte Esterase Negative (Negative); Nitrite Negative (Negative)
[2019-05-07 16:12] LABS: Lactate 3.3 mmol/L (0.6-1.4)
[2019-05-07 16:14] LABS: ALT 52 U/L (14-59); AST 66 U/L (15-37); Albumin 2.5 g/dL (3.4-5.0); Alkaline Phosphatase 360 U/L (46-116); Anion Gap 5.8 mmol/L (3-11); BUN 17 mg/dL (7-18); Bilirubin, Total 0.4 mg/dL (0.2-1.0); CO2 34.2 mmol/L (21.0-32.0); CREATININE 0.64 mg/dL (0.55-1.02); Calcium 8.8 mg/dL (8.5-10.1); Chloride 103 mmol/L (98-107); Glucose 109 mg/dL (74-106); Potassium 4.3 mmol/L (3.5-5.1); Sodium 143 mmol/L (136-145)
[2019-05-07 16:15] LABS: Troponin I < 0.05 ng/Ml (<0.06)
[2019-05-07] MEDS: Omnipaque 350 MG/ML 100 ML BTL IJ (16:28)
[2019-05-07 16:34] LABS: Magnesium 1.8 mg/dL (1.8-2.4); NT-proBNP 474 pg/mL (<300)
--- NOTE | 2019-05-07 17:15 | DI.VRAD_ITS ---
PROCEDURE INFORMATION: Exam: CT Angiography Chest With Contrast Exam date and time: 05/07/2019 3:46 PM Age: 83 years old Clinical history: Generalized; Patient HX: Hypoxic, constipation, abdominal pain TECHNIQUE: Imaging protocol: Computed tomographic angiography of the chest with intravenous contrast. 3D rendering: MIP reconstructed images were created and reviewed. COMPARISON: No relevant prior studies available. FINDINGS: Limitations: Motion artifact limits detail. Artifact off the upper opacified superior vena cava further limits evaluation of the right upper lobe arteries. The patient is rotated toward the right with crowding and tortuosity of the right lower lobe vessels. Pulmonary arteries: No filling defect to indicate pulmonary embolism. The pulmonary arteries demonstrate mild central enlargement, consistent with mild pulmonary hypertension. Aorta: Mild aortic wall calcifications. No aortic aneurysm. No aortic dissection. Lungs/Pleural space: Moderate right pleural effusion with adjacent consolidation. Heart: Mild cardiomegaly. No pericardial effusion. Lymph nodes: Unremarkable. No enlarged lymph nodes. Bones/joints: No acute bony abnormality. Incidental T11 benign hemangioma. Soft tissues: Unremarkable. IMPRESSION: 1. Limited exam. 2. Negative for pulmonary embolism, aortic aneurysm or dissection. 3. Chronic pulmonary hypertension. 4. Moderate right pleural effusion with adjacent consolidation which may represent atelectasis or pneumonia. PROCEDURE INFORMATION: Exam: CT Abdomen And Pelvis With Contrast Exam date and time: 05/07/2019 3:46 PM Age: 83 years old Clinical history: Generalized; Patient HX: Hypoxic, constipation, abdominal pain TECHNIQUE: Imaging protocol: Computed tomography of the abdomen and pelvis with intravenous contrast. COMPARISON: No relevant prior studies available. FINDINGS: Liver: Liver is enlarged measuring 19 cm in length. No mass. Gallbladder and bile ducts: Cholecystectomy. Pancreas: Unremarkable. No ductal dilation. Spleen: Unremarkable. No splenomegaly. Adrenals: Unremarkable. No mass. Kidneys and ureters: Unremarkable. No hydronephrosis. Stomach and bowel: Fluid throughout normal caliber small bowel and colon to the rectum. Small amount of semisolid stool in the sigmoid colon. Circumferential low density wall thickening with mucosal and enhancement involving the rectum. There is hypervascularity in this region. Small amount of presacral fluid. No lymphadenopathy. No bowel obstruction or perforation. No pneumatosis intestinalis. Appendix: No evidence of appendicitis. Intraperitoneal space: Unremarkable. No free air. No significant fluid collection. Vasculature: Atherosclerotic disease, most pronounced in the superior mesenteric artery with irregular partially calcified plaque producing moderate-severe segmental stenosis at the origin and proximal portion. Distally, the proximal branches are normal caliber and patent. Abdominal aorta is normal caliber with no dissection. Lymph nodes: Nonspecific prominent periportal lymph nodes. Bladder: Unremarkable as visualized. Reproductive: Unremarkable as visualized. Bones/joints: Unremarkable. No acute fracture. Soft tissues: Unremarkable. IMPRESSION: 1. 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 No signs of bowel ischemia. 2. Possible proctitis. 3. No solid stool to indicate constipation. 4. Hepatomegaly. No mass. Dictated and Authenticated by: Irma Rushing MD. Ordering:SANTOS Baptiste MD
[2019-05-07] MEDS: Azithromycin 250 MG TAB 500 MG PO (18:00)
[2019-05-07] MEDS: cefTRIAXone 1 GM/50 ML BAG IVPB (18:01)
--- NOTE | 2019-05-07 18:16 | HPE_ITS ---
Date of service: 05/07/19 Time of Service: 18:16 Assessment and Plan Assessment and plan (1) Altered mental status: Start date: 05/07/19 Status: Acute Assessment and plan: This is an 83-year-old lady here for acute onset of change in mental status with hypoxemia responding to O2 supplementation. She had a recent UTI on ciprofloxacin with 2 Pseudomonas pathogens pansensitive noted on urine culture. Because of her change in mental status and hypoxemia associated most likely with acute right lower lobe pneumonia and her Pseudomonas UTI she was placed on O2 supplement, IV Zosyn and will be gently rehydrated. She clinically appears dry and is chronically on furosemide. She is a DNR/DNI this will be respected. Qualifiers: Altered mental status type: delirium Qualified Code(s): R41.0 - Disorientation, unspecified (2) Right lower lobe pneumonia: Start date: 05/07/19 Status: Acute Assessment and plan: With associated hypoxemia and effusion. Gentle IV hydration watching for fluid overload and to continue IV Zosyn with O2 supplementation. Hold Lasix for now. Qualifiers: Pneumonia type: due to unspecified organism Qualified Code(s): J18.9 - Pneumonia, unspecified organism (3) Hypoxemia: Start date: 05/07/19 Status: Acute Assessment and plan: New onset with acute pulmonary process. She also appears to have some chronic lung issues with chronic pulmonary hypertension mentioned on CT. She also has acute moderate right pleural effusion with her probable pneumonia. Continue O2 supplementation and watch for fluid overload with gentle IV hydration. Consider updating echocardiogram with no recent echocardiogram found in her old records. (4) Complicated UTI (urinary tract infection): Start date: 05/07/19 Status: Acute Assessment and plan: With Pseudomonas which is not resistant. Switch IV antibiotic therapy to Zosyn to cover pneumonia with UTI. She did not have any chronic indwelling catheters. There is a mention of urinary retention on her problem list we will watch for this as we IV hydrate. For now she will not have a Porter catheter. 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 We will check her Depakote level. Watch for exacerbation of seizure disorder during her acute illness with altered mental status. History of Present Illness History of Present Illness Chief Complaint: Change in mental status with constipation for 6 days Narrative: This is an 83-year-old lady who lives at the [facility] states that she usually walks sometimes with a walker and rarely has to be in a wheelchair. She presented to the ED with complaints of hypoxemia measured at the [place] [facility] though she had no complaints of respiratory symptoms. She was on ciprofloxacin for a UTI with Pseudomonas which had 2 organisms sensitive to fluoroquinolones. She denied any fever, chills or sweats and as stated she had no respiratory complaints upon presentation. This was confirmed with reviewing history at the time that I saw her. She appeared to be slightly more clear but still laid in bed with her eyes closed and answered questions slowly during my exam. Her abdominal discomfort continued though not as severe after disimpaction in the ED. She did state that she has pneumonia indicating that she is aware of why she is in the hospital and remembers her ED visit. Her baseline is being clear minded and not hypoxic. She does have a history of seizure disorder since she was a child and does have a history of hypertension, depression and a question of heart failure on Lasix chronically. Presently she has a dry mouth and appears dry. Does not have a chronic indwelling Porter catheter and usually urinates on her own. She is on Imodium indicated she may have diarrhea intermittently but for the last 6 days has not had a bowel movement and did have hard stool in the rectal vault in the ED. She presently is comfortable on IV hydration and IV Zosyn after being initially given Rocephin and is Zithromax IV in the ED. I did switch her to Zosyn to cover the Pseudomonas more effectively and this should also cover her pneumonia acquired in a [place] [facility]. Review of Systems Narrative: 13 point review of systems otherwise unrevealing or stable. The patient is obese chronically and does have fairly significant arthritis in her lower extremities. She denies any fever as stated. She also has had no cough. 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 KERR S/P RIGHT EYE EXTRACTION 10/05/13; DR. KERR Urgency of urination (Chronic) Vaginal spotting (Chronic 01/26/16) Surgical History Cholecystectomy Extraction of cataract 09/21/13; LEFT 10/05/13; RIGHT H/O tubal ligation (Chronic) Family History Mother Essential hypertension Personal history of malignant neoplasm BREAST Heart disease Stroke Father Personal history of malignant neoplasm BONE Sister Personal history of malignant neoplasm BREAST Heart disease Cirrhosis, alcoholic Transplanted heart Son Arthritis Social History Smoking/Tobacco Use Status: Never Alcohol Intake: never Drug use: Never Substance use type: does not use Housing: [facility] Do you feel safe at home: Yes Do you feel safe in your relationship?: Yes Additional Social history: She lives at the [facility]. She has 4 grown children. She has never driven. She does not smoke, drink ETOH, or use illicit drugs. Meds Home Medications and Allergies Home Medications Medication Instructions Recorded Confirmed Type ICaps AREDS 1 cap PO BID 03/26/16 05/07/19 History Certavite-Antioxidant 1 tab PO DAILY 10/03/16 05/07/19 History primidone 250 mg PO DAILY 10/03/16 05/07/19 History primidone 500 mg PO DAILY 10/03/16 10/05/18 History propranolol 60 mg PO DAILY 10/03/16 05/07/19 History acetaminophen [Tylenol] 650 mg PO PRN tab-cap 11/18/16 05/07/19 History lactase 1 cap PO DIRECTED 12/19/16 05/07/19 History loperamide 2 mg PO BID 08/12/17 10/05/18 History ergocalciferol (vitamin D2) 50,000 50,000 unit PO QWEEK 02/04/18 05/07/19 History unit capsule furosemide 20 mg tablet 20 mg PO DAILY 02/04/18 05/07/19 History aluminum-mag hydroxide-simethicone 30 ml PO PRN PRN ml 06/09/18 05/07/19 History 200 mg-200 mg-20 mg/5 mL oral susp bismuth subsalicylate 525 mg/15 mL 525 mg PO ONCE PRN 06/09/18 05/07/19 History oral suspension diphenoxylate-atropine [Lomotil] 1 tab PO Q6H PRN 10/05/18 05/07/19 History divalproex 1,000 mg PO BID 10/05/18 05/07/19 History potassium chloride 40 meq 10/05/18 History linezolid 600 mg tablet 600 mg PO BID #10 tab 11/18/18 Rx ciprofloxacin HCl 250 mg tablet 250 mg PO BID #14 tab 05/04/19 05/07/19 Rx Lactobacillus acidophilus 1 cap PO DAILY 05/07/19 05/07/19 History [Acidophilus] cholecalciferol (vitamin D3) 50,000 unit PO DAILY 05/07/19 05/07/19 History [Vitamin D3] magnesium oxide 400 mg PO DAILY 05/07/19 05/07/19 History omeprazole 20 mg PO DAILY 05/07/19 05/07/19 History ranitidine HCl 300 mg PO DAILY 05/07/19 05/07/19 History Allergies Allergy/AdvReac Type Severity Reaction Status Date / Time ethosuximide Allergy Intermediate Unverified 05/07/19 14:57 lactose AdvReac Intermediate Intolerant Unverified 05/07/19 14:57 Exam Narrative Exam Narrative: General: Patient is obese and appears comfortable lying in bed w ith her head at a 45 degree angle. She is on O2. She answers questions but slowly responds and appears to have intact recent memory remembering that she has pneumonia and that is why she is in the hospital. She is in no acute distress. HEENT: Normocephalic, puffy face with no pitting and coarsened features, pupils equal and reactive to light symmetrically with extraocular intact and sclera anicteric, oropharynx with dry oral mucosa and the patient edentulous. External ears are normal. Neck: Supple without JVD. Back: Stooped posture with no CVA tenderness with patient having difficulty sitt ing up for exam. Lungs: Decreased breath sounds diffusely with no focalizing rales or rhonchi, no expiratory wheeze or increased expiratory phase. Breast: Pendulous, symmetrical breasts grossly without masses with full exam not performed. Heart: Regular rate and rhythm with no murmurs or gallops appreciated. Abdomen: Obese contour and protuberant but soft with no focalizing tenderness or guarding though she diffusely is uncomfortable with palpation. Bowel sounds are positive in all quadrants. No palpable hepatosplenomegaly or masses. Genitalia/rectal: Exam in ED removed large amount of hard stool with exam deferred by myself. Extremities: Without clubbing, cyanosis but gross nonpitting edema lower extremities with bony osteoarthritic changes of the knees, skin with loss of hair and no ulcerations or hyperpigmentation over legs. Upper extremities are normal. Peripheral pulses are intact. Skin: Pale, warm and dry without rashes noted. Neuro/psych: Cranial nerves II through XII grossly intact, no focalizing motor deficits though patient appears diffusely weakened and withdrawn with her change in mental status, slowed mentation but appears to have recent memory intact without being able to give much history in her present state of illness. Affect is flattened but she appears acutely ill. Mood not depressed or anxious. Results Imaging Additional studies: Organism 1 Pseudomonas aeruginosa COLONY COUNT >100,000 COLONIES/ML Organism 2 Pseudomonas aeruginosa#2 COLONY COUNT >100,000 COLONIES/ML Pseu aeru Pseu aeru#2 RESULT RESULT Ceftazidime S S Ciprofloxacin S S Gentamicin S S Imipenem S S Tobramycin S S Piperacillin/Tazobactam S S Imaging Studies: Exam(s) PROCEDURE INFORMATION: Exam: CT Angiography Chest With Contrast Exam date and time: 05/07/2019 3:46 PM Age: 83 years old Clinical history: Generalized; Patient HX: Hypoxic, constipation, abdominal pain TECHNIQUE: Imaging protocol: Computed tomographic angiography of the chest with intravenous contrast. 3D rendering: MIP reconstructed images were created and reviewed. COMPARISON: No relevant prior studies available. FINDINGS: Limitations: Motion artifact limits detail. Artifact off the upper opacified superior vena cava further limits evaluation of the right upper lobe arteries. The patient is rotated toward the right with crowding and tortuosity of the right lower lobe vessels. Pulmonary arteries: No filling defect to indicate pulmonary embolism. The pulmonary arteries demonstrate mild central enlargement, consistent with mild pulmonary hypertension. Aorta: Mild aortic wall calcifications. No aortic aneurysm. No aortic dissection. Lungs/Pleural space: Moderate right pleural effusion with adjacent consolidation. Heart: Mild cardiomegaly. No pericardial effusion. Lymph nodes: Unremarkable. No enlarged lymph nodes. Bones/joints: No acute bony abnormality. Incidental T11 benign hemangioma. Soft tissues: Unremarkable. IMPRESSION: 1. Limited exam. 2. Negative for pulmonary embolism, aortic aneurysm or dissection. 3. Chronic pulmonary hypertension. 4. Moderate right pleural effusion with adjacent consolidation which may represent atelectasis or pneumonia. PROCEDURE INFORMATION: Exam: CT Abdomen And Pelvis With Contrast Exam date and time: 05/07/2019 3:46 PM Age: 83 years old Clinical history: Generalized; Patient HX: Hypoxic, constipation, abdominal pain TECHNIQUE: Imaging protocol: Computed tomography of the abdomen and pelvis with intravenous contrast. COMPARISON: No relevant prior studies available. FINDINGS: Liver: Liver is enlarged measuring 19 cm in length. No mass. Gallbladder and bile ducts: Cholecystectomy. Pancreas: Unremarkable. No ductal dilation. Spleen: Unremarkable. No splenomegaly. Adrenals: Unremarkable. No mass. Kidneys and ureters: Unremarkable. No hydronephrosis. Stomach and bowel: Fluid throughout normal caliber small bowel and colon to the rectum. Small amount of semisolid stool in the sigmoid colon. Circumferential low density wall thickening with mucosal and enhancement involving the rectum. There is hypervascularity in this region. Small amount of presacral fluid. No lymphadenopathy. No bowel obstruction or perforation. No pneumatosis intestinalis. Appendix: No evidence of appendicitis. Intraperitoneal space: Unremarkable. No free air. No significant fluid collection. Vasculature: Atherosclerotic disease, most pronounced in the superior mesenteric artery with irregular partially calcified plaque producing moderate-severe segmental stenosis at the origin and proximal portion. Distally, the proximal branches are normal caliber and patent. Abdominal aorta is normal caliber with no dissection. Lymph nodes: Nonspecific prominent periportal lymph nodes. Bladder: Unremarkable as visualized. Reproductive: Unremarkable as visualized. Bones/joints: Unremarkable. No acute fracture. Soft tissues: Unremarkable. IMPRESSION: 1. 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 No signs of bowel ischemia. 2. Possible proctitis. 3. No solid stool to indicate constipation. 4. Hepatomegaly. No mass. Dictated and Authenticated by: Irma Rushing MD. Labs Result diagrams: 05/07/19 15:48 05/07/19 15:48 Labs: Laboratory Results - last 24 hr 05/07/19 05/07/19 05/07/19 15:48 15:48 15:48 WBC 6.52 RBC 4.10 Hgb 13.4 Hct 42.2 MCV 102.9 H MCH 32.7 MCHC 31.8 L RDW 15.1 H Plt Count 261 MPV 10.2 Immature Gran % 0.9 Neutrophils % 51.9 Lymphocytes % 32.1 Monocytes % 13.7 Eosinophils % 0.8 Basophils % 0.6 Absolute Neutrophils 3.39 Absolute Lymphocytes 2.09 Absolute Monocytes 0.89 H Absolute Eosinophils 0.05 Absolute Basophils 0.04 Sodium 143 Potassium 4.3 Chloride 103 Carbon Dioxide 34.2 H Anion Gap 5.8 BUN 17 Creatinine 0.64 Estimated GFR/1.73 m2 >= 60.00 Glucose 109 H Lactate Calcium 8.8 Magnesium 1.8 Total Bilirubin 0.4 AST 66 H ALT 52 Alkaline Phosphatase 360 H Troponin I < 0.05 NT-Pro-B Natriuret Pep 474 Total Protein 7.0 Albumin 2.5 L Urine Color Urine Clarity Urine pH Ur Specific Upper Tract Urine Protein Urine Ketones Urine Blood Urine Nitrite Urine Bilirubin Urine Urobilinogen Ur Leukocyte Esterase Urine Glucose 05/07/19 05/07/19 16:00 16:04 WBC RBC Hgb Hct MCV MCH MCHC RDW Plt Count MPV Immature Gran % Neutrophils % Lymphocytes % Monocytes % Eosinophils % Basophils % Absolute Neutrophils Absolute Lymphocytes Absolute Monocytes Absolute Eosinophils Absolute Basophils Sodium Potassium Chloride Carbon Dioxide Anion Gap BUN Creatinine Estimated GFR/1.73 m2 Glucose Lactate 3.3 H* Calcium Magnesium Total Bilirubin AST ALT Alkaline Phosphatase Troponin I NT-Pro-B Natriuret Pep Total Protein Albumin Urine Color Yellow Urine Clarity Clear Urine pH 6.0 Ur Specific Upper Tract 1.020 Urine Protein Negative Urine Ketones Trace H Urine Blood Negative Urine Nitrite Negative Urine Bilirubin Negative Urine Urobilinogen 1.0 H Ur Leukocyte Esterase Negative Urine Glucose Negative Last Vital Signs Temp 36.6 C 05/07/19 14:50 Pulse 72 05/07/19 16:01 Resp 14 05/07/19 17:00 BP 136/59 L 05/07/19 16:01 Pulse Ox 91 L 05/07/19 17:00
[2019-05-07] MEDS: Pantoprazole 40 MG VIAL IVP (20:08)
[2019-05-07] MEDS: Normal Saline Flush 10 ML SYR IVP (20:09)
[2019-05-07] MEDS: Normal Saline 1,000 ML 100 ML IV (20:12)
[2019-05-07] MEDS: Divalproex Sodium 500 MG TAB.ER.24H 1000 MG PO (20:13)
[2019-05-07] MEDS: Heparin 5,000 UNITS/ML VIAL 5000 UNITS SC (21:32)
[2019-05-07] MEDS: PIPERACILLIN/TAZO 3.375 GM in Normal Saline 50 ML IVPB (23:48)
[2019-05-08] VITALS (7 sets, daily range): BP systolic 117–160; BP diastolic 60–79; PULSE 58–74; RESP 16–19; TEMP 36–36.7; O2SAT 91–95
[2019-05-08] MEDS: Normal Saline 1,000 ML 100 ML IV ×2 (05:59→16:54)
[2019-05-08] MEDS: PIPERACILLIN/TAZO 3.375 GM in Normal Saline 50 ML IVPB ×4 (05:59→23:49)
[2019-05-08] MEDS: Heparin 5,000 UNITS/ML VIAL 5000 UNITS SC ×3 (06:00→20:43)
[2019-05-08 06:36] LABS: VALPROIC ACID 42.1 ug/mL (50-100)
[2019-05-08] MEDS: Divalproex Sodium 500 MG TAB.ER.24H 1000 MG PO ×2 (07:52→20:42)
[2019-05-08] MEDS: Magnesium Oxide 400 MG TAB PO (07:53)
[2019-05-08] MEDS: Propranolol 60 MG CAPCR PO (07:53)
[2019-05-08] MEDS: Primidone 250 MG TAB PO (07:53)
--- NOTE | 2019-05-08 10:37 | PDOC.CMIN ---
Care Management Initial Assess REASON FOR HOSPITALIZATION:: Pneumonia iwth Hypoxemia/Effusion, AMS, UTI with pseudomonas PAST MEDICAL HISTORY/PAST SURGICAL HISTORY:: Anxiety, depression, hypertension, essential tremor, frequent falls, hearing loss, vaginal atrophy, heart murmur, intractable generalized idiopathic epilepsy wihtout status epilepticus, lactose intolerance, low back pain, lumbar stenosis with neurogenic claudication, nuclear cataract, urgency of urination, vaginal spotting, cholecystectomy, extraction of cataract, tubal ligation PREVIOUS FUNCTIONAL STATUS/SOCIAL/FAMILY SUPPORTS:: Melissa is a resident at the [facility] in [place], [place]. Two of her sons, Benny and Jeb reside locally and two other sons, Myke and Ferdinand reside out of state. She has been at the [facility] for a few years with no plans of returning home, she is no longer able to ambulate and a gertrudis lift is utilized for transfers. She requires total assistance, though is able to feed herself. CURRENT FUNCTIONAL STATUS:: Melissa is lying in bed, meeting with Dr. Araujo who manages her care at the [facility]. ADVANCE DIRECTIVES:: COLST on file at [facility]. Has patient been provided with information about the portal?: Yes Did the patient sign up for the portal?: No CODE STATUS:: DNR/DNI INSURANCE COVERAGE / FINANCIAL ISSUES:: Medicare. Medicaid CURRENT HOME/COMMUNITY SERVICES/EQUIPMENT:: Resident at [facility] manages services and equipment. Melissa is bed bound, and staff utilizes gertrudis lift for transfers. PRIMARY CARE PHYSICIAN:: Natasha Araujo POTENTIAL DISCHARGE NEEDS:: Coordinated return to [facility], to include transportation. PATIENT/FAMILY EDUCATION NEEDS:: Review of instructions, discuss Ask Me Three. ANTICIPATED BARRIERS TO DISCHARGE:: None identified. TRANSPORTATION:: EMS-vs-W/C van dependent of safety of transfers and ability to sit. PLAN:: Melissa will return to the [facility], her residence, when ready per MD. She will transport via EMS-vs-W/C Van; dependent on ability.
--- NOTE | 2019-05-08 13:34 | PHARADMIT ---
Addendum entered by Alvino Dale III 05/10/19 14:57: Pharmacy Note Subjective Obese patient (can not even sit up probable SULAIMAN) with Pneumonia (hypoxia) AMS,UTI improving on supplemental O2 & Zosyn IV. has switched to PO Levaquin. Objective VS-OK SAO2-94% on 2 L No Labs Wgt- 96 kg BM yesterday Assessment Wgt up 4kg and Lasix 20mg IV started Plan Plan is for her to return to [facility] once she tolerates PO ABX. Addendum entered by Florina Adkins 05/09/19 14:01: Pharmacy Note Subjective mental status improving yesterday per morning report Objective BP-159/77 other VS okay alkphos-232(down) Assessment zosyn continues (day 2, was on cipro prior to admission (urine culture from 05/03 susceptible to cipro) Plan continue to watch VS, labs and for med changes Original Note: Admission Pharmacy Clinical Review pneumonia w/hypoxia/effusion, AMS, UTI w/ PSE Code Status DNR/DNI Current Weight 95.1 kg Renally Cleared and Narrow Therapeutic Index Meds Crcl ~71.6 mL/min using adjusted body weight current meds okay valproic acid level-42.1 QTc Value / Action Taken QTc 430 BP Control, Fever BP 132/60 afebrile Electrolytes reviewed within normal limits DVT Prophylaxis heparin Opiate Usage / Scheduled Bowel Regimen Ordered no/prn Plt/SCr for Heparin / Enoxaparin plt 261 SCr 0.64 INR for Warfarin n/a H/H stable, WBC/Bands h/h 13.4/42.2 WBC 6.25 Antibiotic appropriateness zosyn for UTI and pneumonia coverage Cultures and Sensitivities MRSA-positive C.diff-negative urine culture from 05/03 grew psuedomonas Surgical ABX d/c within 24 hr n/a DM control / Insulin Dosing BG 109 none Heart Failure (Check EF%) (CLAYTON's, B-Block, Diuretics) propranolol IV to PO Switch n/a Home Meds Reviewed -cholecalciferol and ergocalciferol may increase serum concentration of aluminum hydroxide, avoid chronic/excessive use of aluminum containing products in pts taking vitamin D -multivitamins may increase serum concentration of aluminum hydroxide, consider avoiding in pts with severe renal dysfunction, administer at least 2 hours apart -multiple forms of vitamin D increases risk of toxicity -diphenoxylate may enhance the hypertensive effects of MAOIs (linezolid); avoid concomitant use -atropine may enhance the ulcerogenic effect of potassium -separate admin of ciprofloxacin from antacids, multivitamin, and magnesium oxide as they may decrease the serum concentration of ciprofloxacin Home Meds Not Ordered aluminum-magnesium hydroxide/simethicone (has other antacids ordered), bismuth subsalicylate, multivitamin, cholecalciferol (has ergocalciferol ordered), ciprofloxacin and linezolid (has other abx ordered), omeprazole (has other ppi ordered), diphenoxylate/atropine, loperamide, lactobacillus, potassium, ranitidine, lactase, furosemide(clinically appears dry per H+P) Comments
[2019-05-08] MEDS: Primidone 250 MG TAB 500 MG PO (16:54)
--- NOTE | 2019-05-08 17:14 | W.PM.PROGNOT ---
Date of Service Date of service: 05/08/19 Time of Service: 15:14 Assessment and Plan Assessment and plan (1) Altered mental status: Status: Acute Assessment and plan: Has improved with supplemental oxygen. Qualifiers: Altered mental status type: delirium Qualified Code(s): R41.0 - Disorientation, unspecified (2) Right lower lobe pneumonia: Status: Acute Assessment and plan: With associated hypoxemia and effusion. Gentle IV hydration watching for fluid overload and to continue IV Zosyn with O2 supplementation. I agree with no Lasix for now. Qualifiers: Pneumonia type: due to unspecified organism Qualified Code(s): J18.9 - Pneumonia, unspecified organism (3) Complicated UTI (urinary tract infection): Status: Acute Assessment and plan: With Pseudomonas which is not resistant. Day #2 IV antibiotic therapy with Zosyn to cover pneumonia with UTI. Continue to watch for urinary retention. 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 Depakote level slightly low but no seizure activity so we will continue current medications. Subjective Subjective Patient reports: no new complaints and feels better; denies diarrhea, nausea, vomiting and fever Interval history since last seen: Her breathing has improved. She ate today. Denies pain Exam Narrative Exam Narrative: Patient is alert, a little slow to answer questions but oriented x3. She appears comfortable lying in bed with the head at 45 degrees. She is wearing oxygen per nasal cannula. She speaks in full sentences. Lungs are clear bilaterally with no rales or wheezes. Heart is regular rate rhythm no murmurs. Abdomen is soft and nontender, no masses. Extremities show no cyanosis clubbing or edema. Intention tremor noted. Objective Objective Clinical Data: Abnormal lab results 05/08/19 Range/Units 06:10 Total Valproic Acid 42.1 L (50-100) ug/mL Vital Signs Temperature 36.4 C L 05/08/19 15:45 Temperature Source Temporal Artery Scan 05/08/19 15:45 Pulse 74 05/08/19 15:45 Pulse Rhythm Regular 05/08/19 15:45 Pulse 71 05/07/19 18:50 Respiratory Rate 19 05/08/19 15:45 Respiratory Effort 05/08/19 15:45 Respiratory Depth Normal 05/08/19 15:45 Respiratory Pattern Normal 05/08/19 15:45 Blood Pressure 148/73 H 05/08/19 15:45 Blood Pressure Mean 88 05/07/19 18:46 Blood Pressure Position Sitting 05/07/19 14:50 Pulse Oximetry 94 L 05/08/19 15:45 Oxygen Delivery Method Nasal Cannula 05/08/19 15:45 Oxygen Flow Rate 2 05/08/19 15:45 Pain Level 0 05/08/19 15:45 Intake & Output 05/07/19 05/08/19 05/08/19 23:59 11:59 23:59 Intake Total 950 / 950 1468.333 / 2518.333 1050 / 2518.333 Output Total Balance 940 / 940 1468.333 / 2518.333 1050 / 2518.333 Weight 92.533 kg 95.1 kg Intake: IV 950 / 950 1028.333 / 2078.333 1050 / 2078.333 Oral 440 / 440 Output: Urine Other: Urine Color Yellow Yellow Urine Appearance Clear Clear Urine Odor Normal Comment incontinent x 1. Stool Size Small Large Stool Characteristics Soft Liquid Liquid Mucoid Brown Brown Voiding Methods Diaper Incontinent Incontinent Laboratory Results WBC 6.52 k/cumm (4.4-10.8) 05/07/19 15:48 RBC 4.10 m/cumm (4.00-5.20) 05/07/19 15:48 Hgb 13.4 g/dL (12.0-15.5) 05/07/19 15:48 Hct 42.2 % (36.0-46.0) 05/07/19 15:48 MCV 102.9 fL (80-95) H 05/07/19 15:48 MCH 32.7 pg (27.0-33.0) 05/07/19 15:48 MCHC 31.8 g/dL (32.0-36.0) L 05/07/19 15:48 RDW 15.1 % (11.7-14.6) H 05/07/19 15:48 Plt Count 261 x1000/uL (130-400) 05/07/19 15:48 MPV 10.2 fL (8.0-11.0) 05/07/19 15:48 Immature Gran % 0.9 05/07/19 15:48 Neutrophils % 51.9 05/07/19 15:48 Lymphocytes % 32.1 05/07/19 15:48 Monocytes % 13.7 05/07/19 15:48 Eosinophils % 0.8 05/07/19 15:48 Basophils % 0.6 05/07/19 15:48 Absolute Neutrophils 3.39 k/cumm (1.2-6.7) 05/07/19 15:48 Absolute Lymphocytes 2.09 k/cumm (1.2-3.4) 05/07/19 15:48 Absolute Monocytes 0.89 k/cumm (0.11-0.7) H 05/07/19 15:48 Absolute Eosinophils 0.05 k/cumm (0.0-0.7) 05/07/19 15:48 Absolute Basophils 0.04 k/cumm (0.0-0.2) 05/07/19 15:48 Sodium 143 mmol/L (136-145) 05/07/19 15:48 Potassium 4.3 mmol/L (3.5-5.1) 05/07/19 15:48 Chloride 103 mmol/L (98-107) 05/07/19 15:48 Carbon Dioxide 34.2 mmol/L (21.0-32.0) H 05/07/19 15:48 Anion Gap 5.8 mmol/L (3-11) 05/07/19 15:48 BUN 17 mg/dL (7-18) 05/07/19 15:48 Creatinine 0.64 mg/dL (0.55-1.02) 05/07/19 15:48 Estimated GFR/1.73 m2 >= 60.00 (mL/min/1.73m2) 05/07/19 15:48 Glucose 109 mg/dL (74-106) H 05/07/19 15:48 Lactate 3.3 mmol/L (0.6-1.4) H* 05/07/19 16:04 Calcium 8.8 mg/dL (8.5-10.1) 05/07/19 15:48 Magnesium 1.8 mg/dL (1.8-2.4) 05/07/19 15:48 Total Bilirubin 0.4 mg/dL (0.2-1.0) 05/07/19 15:48 AST 66 U/L (15-37) H 05/07/19 15:48 ALT 52 U/L (14-59) 05/07/19 15:48 Alkaline Phosphatase 360 U/L (46-116) H 05/07/19 15:48 Troponin I < 0.05 ng/Ml (<0.06) 05/07/19 15:48 NT-Pro-B Natriuret Pep 474 pg/mL (<300) 05/07/19 15:48 Total Protein 7.0 g/dL (6.4-8.2) 05/07/19 15:48 Albumin 2.5 g/dL (3.4-5.0) L 05/07/19 15:48 TSH 2.30 uIU/mL (0.36-3.74) 05/07/19 20:05 Urine Color Yellow (Yellow) 05/07/19 16:00 Urine Clarity Clear (Clear) 05/07/19 16:00 Urine pH 6.0 (5-8) 05/07/19 16:00 Ur Specific [place] 1.020 (1.005-1.025) 05/07/19 16:00 Urine Protein Negative mg/dL (Negative) 05/07/19 16:00 Urine Ketones Trace mg/dL (Negative) H 05/07/19 16:00 Urine Blood Negative (Negative) 05/07/19 16:00 Urine Nitrite Negative (Negative) 05/07/19 16:00 Urine Bilirubin Negative (Negative) 05/07/19 16:00 Urine Urobilinogen 1.0 EU/dL (Up TO 0.2) H 05/07/19 16:00 Ur Leukocyte Esterase Negative (Negative) 05/07/19 16:00 Urine Glucose Negative mg/dL (Negative) 05/07/19 16:00 Total Valproic Acid 42.1 ug/mL (50-100) L 05/08/19 06:10
[2019-05-08] MEDS: Normal Saline Flush 10 ML SYR IVP (20:42)
[2019-05-08] MEDS: Lactobacillus Acidophilus CAP 1 CAP PO (20:42)
[2019-05-08] MEDS: Pantoprazole 40 MG VIAL IVP (20:42)
[2019-05-08] MEDS: Melatonin 3 MG TAB PO (23:49)
[2019-05-09] VITALS (7 sets, daily range): BP systolic 127–159; BP diastolic 59–77; PULSE 66–79; RESP 16–19; TEMP 36.6–37; O2SAT 91–94
[2019-05-09] MEDS: Normal Saline 1,000 ML 100 ML IV (03:17)
[2019-05-09] MEDS: Heparin 5,000 UNITS/ML VIAL 5000 UNITS SC ×3 (06:24→23:28)
[2019-05-09] MEDS: PIPERACILLIN/TAZO 3.375 GM in Normal Saline 50 ML IVPB ×4 (06:24→23:29)
[2019-05-09] MEDS: Divalproex Sodium 500 MG TAB.ER.24H 1000 MG PO ×2 (07:40→20:32)
[2019-05-09] MEDS: Lactobacillus Acidophilus CAP 1 CAP PO ×2 (07:41→20:32)
[2019-05-09] MEDS: Primidone 250 MG TAB PO (07:41)
[2019-05-09] MEDS: Propranolol 60 MG CAPCR PO (07:41)
[2019-05-09] MEDS: Magnesium Oxide 400 MG TAB PO (07:41)
[2019-05-09 11:28] LABS: Lactate 2.6 mmol/L (0.6-1.4)
[2019-05-09 11:56] LABS: Abs Immature Grans 0.04 k/cumm (0.0-0.09); Absolute Basophil Count 0.03 k/cumm (0.0-0.2); Absolute Eosinophil Count 0.06 k/cumm (0.0-0.7); Absolute Lymphocyte Count 1.68 k/cumm (1.2-3.4); Absolute Monocyte Count 0.65 k/cumm (0.11-0.7); Absolute Neutrophil Count 2.99 k/cumm (1.2-6.7); Basophils % 0.6; Eosinophils % 1.1; HCT 39.7 % (36.0-46.0); HGB 12.5 g/dL (12.0-15.5); Immature Grans % 0.7; Lymphocytes % 30.8; Mean Corp. HGB Concentration 31.5 g/dL (32.0-36.0); Mean Corpuscular Hemoglobin 32.6 pg (27.0-33.0); Mean Corpuscular Volume 103.7 fL (80-95); Mean Platelet Volume 10.2 fL (8.0-11.0); Monocytes % 11.9; Neutrophils % 54.9; Platelet Count 252 x1000/uL (130-400); RBC 3.83 m/cumm (4.00-5.20); White Blood Cell Count 5.45 k/cumm (4.4-10.8)
[2019-05-09 12:00] LABS: ALT 31 U/L (14-59); AST 36 U/L (15-37); Albumin 2.4 g/dL (3.4-5.0); Alkaline Phosphatase 232 U/L (46-116); Anion Gap 6.9 mmol/L (3-11); BUN 9 mg/dL (7-18); Bilirubin, Total 0.4 mg/dL (0.2-1.0); CO2 31.1 mmol/L (21.0-32.0); CREATININE 0.55 mg/dL (0.55-1.02); Calcium 8.6 mg/dL (8.5-10.1); Chloride 105 mmol/L (98-107); Glucose 101 mg/dL (74-106); Potassium 3.8 mmol/L (3.5-5.1); Sodium 143 mmol/L (136-145); Total Protein 6.4 g/dL (6.4-8.2)
--- NOTE | 2019-05-09 14:25 | PGE_ITS ---
Date of Service Date of service: 05/09/19 Time of Service: 14:25 Assessment and Plan Assessment and plan (1) Altered mental status: Status: Acute Assessment and plan: Improved with supplemental oxygen on presentation, now continues to improve despite being off oxygen when I saw her. Think she is just about at her baseline. If she is stable can return to the [facility], likely tomorrow morning. Qualifiers: Altered mental status type: delirium Qualified Code(s): R41.0 - Disorientation, unspecified (2) Right lower lobe pneumonia: Status: Acute Assessment and plan: With associated hypoxemia and effusion. Continue IV Zosyn with O2 supplementation. I agree with no Lasix for now but will stop IV fluids at this point. Qualifiers: Pneumonia type: due to unspecified organism Qualified Code(s): J18.9 - Pneumonia, unspecified organism (3) Complicated UTI (urinary tract infection): Status: Acute Assessment and plan: With Pseudomonas which is not resistant. Day #3 IV antibiotic therapy with Zosyn to cover pneumonia with UTI after 3 days of the Cipro as an outpatient. She should get at least a week course. Continue to watch for urinary retention, will get bladder scan. 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 Depakote level slightly low but no seizure activity so we will continue current medications. (5) Elevated liver enzymes: Status: Acute Assessment and plan: Has had intermittent elevated liver enzymes in the past. Possibly related to antiepileptic medication. Pneumonia could also have been playing a role. LFTs improved from admission on today's labs. (6) Physical deconditioning: Status: Acute Assessment and plan: Per family patient has lost most of her mobility and is dependent for ADLs. I sure they are concerned that her lack of physical activity may make her long-term prognosis worse. Currently she is needing a left to get out of bed in the chair, and even sitting up requires assistance. Will discuss long-term plan with her PCP and consider possible physical therapy. However does not appear to be an acute issue. Subjective Subjective Patient reports: feels better and diarrhea; denies nausea, vomiting and fever Interval history since last seen: 24 hr: C. Dif negative MRSA nares swab positive, precuations continued Feeling better. Eating, appetite good but some trouble with handling pieces of lettuce. Per family she doesn't walk any more, they are worried she never gets out of bed at the [facility]. Had loose stool. Exam Narrative Exam Narrative: Patient is alert, more fluid in conversation, oriented x3. She appears comfortable sitting up in chair eating lunch. She is not wearing oxygen per nasal cannula. She speaks in full sentences. Lungs are clear bilaterally with no rales or wheezes and normal respiratory effort. Heart is regular rate rhythm no murmurs. Abdomen is soft and nontender, no masses. Extremities show no cyanosis, with trace lower extremity edema. Intention tremor noted. Objective Objective Clinical Data: Abnormal lab results 05/09/19 05/09/19 05/09/19 Range/Units 11:12 11:12 11:12 RBC 3.83 L (4.00-5.20) m/cumm MCV 103.7 H (80-95) fL MCHC 31.5 L (32.0-36.0) g/dL RDW 15.0 H (11.7-14.6) % Lactate 2.6 H* (0.6-1.4) mmol/L Alkaline Phosphatase 232 H (46-116) U/L Albumin 2.4 L (3.4-5.0) g/dL Vital Signs Temperature 36.8 C 05/09/19 13:16 Temperature Source Temporal Artery Scan 05/09/19 13:16 Pulse 72 05/09/19 13:16 Pulse Rhythm Regular 05/09/19 07:30 Pulse 71 05/07/19 18:50 Respiratory Rate 18 05/09/19 13:16 Respiratory Effort Non-Labored 05/09/19 07:30 Respiratory Depth Normal 05/09/19 07:30 Respiratory Pattern Normal 05/09/19 07:30 Blood Pressure 159/77 H 05/09/19 13:16 Blood Pressure Mean 88 05/07/19 18:46 Blood Pressure Position Sitting 05/07/19 14:50 Pulse Oximetry 92 L 05/09/19 13:16 Oxygen Delivery Method Nasal Cannula 05/09/19 13:16 Oxygen Flow Rate 2 05/09/19 13:16 Pain Level 0 05/09/19 13:16 Intake & Output 05/08/19 05/09/19 05/09/19 23:59 11:59 23:59 Intake Total 1340 / 2858.333 1650 / 1650 Balance 1340 / 2858.333 1650 / 1650 Weight 95.1 kg Intake: IV 1100 / 2178.333 1100 / 1100 Oral 240 / 680 550 / 550 Other: Urine Color Yellow Urine Appearance Clear Urine Odor Normal Comment incontinent x 1. Stool Size Small Small Stool Characteristics Soft Liquid Liquid Mucoid Brown Voiding Methods Incontinent Diaper Incontinent Laboratory Results WBC 5.45 k/cumm (4.4-10.8) 05/09/19 11:12 RBC 3.83 m/cumm (4.00-5.20) L 05/09/19 11:12 Hgb 12.5 g/dL (12.0-15.5) 05/09/19 11:12 Hct 39.7 % (36.0-46.0) 05/09/19 11:12 MCV 103.7 fL (80-95) H 05/09/19 11:12 MCH 32.6 pg (27.0-33.0) 05/09/19 11:12 MCHC 31.5 g/dL (32.0-36.0) L 05/09/19 11:12 RDW 15.0 % (11.7-14.6) H 05/09/19 11:12 Plt Count 252 x1000/uL (130-400) 05/09/19 11:12 MPV 10.2 fL (8.0-11.0) 05/09/19 11:12 Immature Gran % 0.7 05/09/19 11:12 Neutrophils % 54.9 05/09/19 11:12 Lymphocytes % 30.8 05/09/19 11:12 Monocytes % 11.9 05/09/19 11:12 Eosinophils % 1.1 05/09/19 11:12 Basophils % 0.6 05/09/19 11:12 Absolute Neutrophils 2.99 k/cumm (1.2-6.7) 05/09/19 11:12 Absolute Lymphocytes 1.68 k/cumm (1.2-3.4) 05/09/19 11:12 Absolute Monocytes 0.65 k/cumm (0.11-0.7) 05/09/19 11:12 Absolute Eosinophils 0.06 k/cumm (0.0-0.7) 05/09/19 11:12 Absolute Basophils 0.03 k/cumm (0.0-0.2) 05/09/19 11:12 Sodium 143 mmol/L (136-145) 05/09/19 11:12 Potassium 3.8 mmol/L (3.5-5.1) 05/09/19 11:12 Chloride 105 mmol/L (98-107) 05/09/19 11:12 Carbon Dioxide 31.1 mmol/L (21.0-32.0) 05/09/19 11:12 Anion Gap 6.9 mmol/L (3-11) 05/09/19 11:12 BUN 9 mg/dL (7-18) D 05/09/19 11:12 Creatinine 0.55 mg/dL (0.55-1.02) 05/09/19 11:12 Estimated GFR/1.73 m2 >= 60.00 (mL/min/1.73m2) 05/09/19 11:12 Glucose 101 mg/dL (74-106) 05/09/19 11:12 Lactate 2.6 mmol/L (0.6-1.4) H* 05/09/19 11:12 Calcium 8.6 mg/dL (8.5-10.1) 05/09/19 11:12 Magnesium 1.8 mg/dL (1.8-2.4) 05/07/19 15:48 Total Bilirubin 0.4 mg/dL (0.2-1.0) 05/09/19 11:12 AST 36 U/L (15-37) 05/09/19 11:12 ALT 31 U/L (14-59) 05/09/19 11:12 Alkaline Phosphatase 232 U/L (46-116) H 05/09/19 11:12 Troponin I < 0.05 ng/Ml (<0.06) 05/07/19 15:48 NT-Pro-B Natriuret Pep 474 pg/mL (<300) 05/07/19 15:48 Total Protein 6.4 g/dL (6.4-8.2) 05/09/19 11:12 Albumin 2.4 g/dL (3.4-5.0) L 05/09/19 11:12 TSH 2.30 uIU/mL (0.36-3.74) 05/07/19 20:05 Urine Color Yellow (Yellow) 05/07/19 16:00 Urine Clarity Clear (Clear) 05/07/19 16:00 Urine pH 6.0 (5-8) 05/07/19 16:00 Ur Specific [place] 1.020 (1.005-1.025) 05/07/19 16:00 Urine Protein Negative mg/dL (Negative) 05/07/19 16:00 Urine Ketones Trace mg/dL (Negative) H 05/07/19 16:00 Urine Blood Negative (Negative) 05/07/19 16:00 Urine Nitrite Negative (Negative) 05/07/19 16:00 Urine Bilirubin Negative (Negative) 05/07/19 16:00 Urine Urobilinogen 1.0 EU/dL (Up TO 0.2) H 05/07/19 16:00 Ur Leukocyte Esterase Negative (Negative) 05/07/19 16:00 Urine Glucose Negative mg/dL (Negative) 05/07/19 16:00 Total Valproic Acid 42.1 ug/mL (50-100) L 05/08/19 06:10
--- NOTE | 2019-05-09 14:43 | CMPROGNOTE_ITS ---
Care Management Progress Note S/O: Melissa was sitting up in her chair when CM met with her. She shared her sentiments about living at the [facility] and talked about her four sons. She was pleasant and alert in interaction and when unsure she stated I don't remember appropriately. She was agreeable to discharge plan of returning to the [facility] and shared that she does attend activities at the [facility] in a W/C. She reviewed a few months long struggle with CDIFF which she hopes she does not have to deal with again. CM continues to follow. A: 83 year old female admitted to [facility] P: Melissa will return to the [facility], her residence, when ready per MD. She will transport via [facility]. CM continues to follow.
[2019-05-09] MEDS: Primidone 250 MG TAB 500 MG PO (17:36)
[2019-05-09] MEDS: Pantoprazole 40 MG VIAL IVP (20:32)
[2019-05-09] MEDS: Normal Saline Flush 10 ML SYR IVP ×2 (20:33→23:29)
[2019-05-10] VITALS (11 sets, daily range): BP systolic 109–152; BP diastolic 51–80; PULSE 73–81; RESP 18–19; TEMP 36.5–37.3; O2SAT 84–95
[2019-05-10] MEDS: Acetaminophen 325 MG TAB 650 MG PO ×2 (03:47→18:12)
[2019-05-10] MEDS: Heparin 5,000 UNITS/ML VIAL 5000 UNITS SC ×3 (06:11→21:39)
[2019-05-10] MEDS: PIPERACILLIN/TAZO 3.375 GM in Normal Saline 50 ML IVPB ×2 (06:11→11:22)
[2019-05-10] MEDS: Normal Saline Flush 10 ML SYR IVP ×3 (06:14→20:11)
[2019-05-10] MEDS: Divalproex Sodium 500 MG TAB.ER.24H 1000 MG PO ×2 (08:13→20:10)
[2019-05-10] MEDS: Primidone 250 MG TAB PO (08:14)
[2019-05-10] MEDS: Propranolol 60 MG CAPCR PO (08:14)
[2019-05-10] MEDS: Magnesium Oxide 400 MG TAB PO (08:14)
[2019-05-10] MEDS: Lactobacillus Acidophilus CAP 1 CAP PO ×2 (08:14→20:10)
[2019-05-10] MEDS: Ergocalciferol 50000 UNITS CAP PO (08:27)
--- NOTE | 2019-05-10 10:06 | DI.RAD_ITS ---
EXAM: XR CHEST 2V PA LATERAL INDICATION: hypoxia, pneumonia. COMPARISON: CT CHEST PE ABD PELVIS W from 05/07/2019 TECHNIQUE: 2D digital imaging was performed. FINDINGS: Heart size is within normal limits. There is a small right pleural effusion. The lungs are otherwis e clear. IMPRESSION: Small right pleural effusion.
[2019-05-10] MEDS: Furosemide 20 MG/2 ML VIAL IVP (10:51)
--- NOTE | 2019-05-10 11:08 | NS.NUTBLAN_ITS ---
Date of service: 05/10/19 Time of Service: 11:08 Nutritional Consult ASSESSMENT: 83 year old female admitted with hypoxemia from LTC facility ([facility]). Following regular meal plan with adequate intake. BMI indicates class 2 obesity. Mostly bed bound. Not currently considered at nutritional risk. Will follow weight and po intake trends. MONITORING AND EVALUATION: will monitor po intake and weight trends Time Spent in Nutritional Counseling and Treatment: 0 time face to face
--- NOTE | 2019-05-10 13:48 | PGE_ITS ---
Date of Service Date of service: 05/10/19 Time of Service: 13:48 Assessment and Plan Assessment and plan (1) Altered mental status: Status: Acute Assessment and plan: Improved with supplemental oxygen on presentation. Her mental status has been stable, but I am concerned with desaturation even during the day off oxygen, so do not feel like it is prudent to send her home un til she is stable to previous respiratory status. Qualifiers: Altered mental status type: delirium Qualified Code(s): R41.0 - Disorientation, unspecified (2) Right lower lobe pneumonia: Status: Acute Assessment and plan: With associated hypoxemia and effusion. Repeat chest x-ray today given ongoing hypoxia showed clear airspace but small effusion. Her chronic furosemide had been held, and her weight is up 4 pounds with increased edema, so this may be contributing to her hypoxia. Resume furosemide 20 mg IV and will follow her oxygen need. Clinically she is clearly improved, though I am little concerned that her lactate has not totally normalized as of yesterday. She certainly does not appear toxic. As far as antibiotics, at this point, try switching to oral levofloxacin that would also cover both the pneumonia and UTI, and can be extended for 2 more days as oral therapy if she is discharged.. Qualifiers: Pneumonia type: due to unspecified organism Qualified Code(s): J18.9 - Pneumonia, unspecified organism (3) Complicated UTI (urinary tract infection): Status: Acute Assessment and plan: With Pseudomonas on Day #4 IV antibiotic therapy with Zosyn to cover pneumonia with UTI after 2-3 days of the Cipro as an outpatient. She should get at least a week course. As above we will see how she does on levofloxacin to cover both infections. Continue to watch for urinary retention, bladder scan reassuring yesterday of 53 cc. 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 Depakote level slightly low but no seizure activity so we will continue current medications. (5) Elevated liver enzymes: Status: Acute Assessment and plan: Has had intermittent elevated liver enzymes in the past. Possibly related to antiepileptic medication and possible fatty liver. She did have hepatomegaly on admission CT, but no splenomegaly or signs of cirrhosis. Right lower lobe pneumonia could also have been playing a role. LFTs improved from admission. Follow as outpatient (6) Physical deconditioning: Status: Acute Assessment and plan: Per family patient has lost most of her mobility and is dependent for ADLs. Follow-up with PCP. Subjective Subjective Patient reports: no new complaints and tolerating a regular diet; denies diarrhea, nausea, vomiting, shortness of breath and fever Interval history since last seen: 24-hour: Patient was found to be with oxygen saturation in the low 80s on room air, and resumed oxygen per nasal cannula. She states at baseline she uses oxygen at night. Her mental status has been stable. Exam Narrative Exam Narrative: Patient is alert, more fluid in conversation, oriented x3. She appears comfortable sitting up in bed. She is wearing oxygen per nasal cannula. She speaks in full sentences. Lungs are clear bilaterally except diminished right base , but no rales or wheezes and normal respiratory effort. Heart is regular rate rhythm no murmurs. Abdomen is soft and nontender, no masses. Extremities show no cyanosis, with 1+ lower extremity edema. Intention tremor noted. Objective Objective Clinical Data: Vital Signs Temperature 36.5 C 05/10/19 11:22 Temperature Source Tympanic 05/10/19 11:22 Pulse 73 05/10/19 11:22 Pulse Rhythm Regular 05/10/19 09:05 Pulse 71 05/07/19 18:50 Respiratory Rate 19 05/10/19 11:22 Respiratory Effort Non-Labored 05/10/19 09:05 Respiratory Depth Normal 05/10/19 09:05 Respiratory Pattern Normal 05/10/19 09:05 Blood Pressure 127/65 05/10/19 11:22 Blood Pressure Mean 88 05/07/19 18:46 Blood Pressure Position Sitting 05/07/19 14:50 Pulse Oximetry 94 L 05/10/19 11:22 Oxygen Delivery Method Nasal Cannula 05/10/19 11:22 Oxygen Flow Rate 2 05/10/19 11:22 Pain Level 0 05/10/19 11:22 Intake & Output 05/09/19 05/10/19 05/10/19 23:59 11:59 23:59 Intake Total 410 / 2060 500 / 500 Balance 410 / 2060 500 / 500 Weight 96 kg Intake: IV 170 / 1270 50 / 50 Oral 240 / 790 450 / 450 Other: Urine Odor Normal Comment after episode of incontinence, unable to measure the void Stool Size Large Stool Characteristics Soft Voiding Methods Incontinent Incontinent Incontinent Laboratory Results WBC 5.45 k/cumm (4.4-10.8) 05/09/19 11:12 RBC 3.83 m/cumm (4.00-5.20) L 05/09/19 11:12 Hgb 12.5 g/dL (12.0-15.5) 05/09/19 11:12 Hct 39.7 % (36.0-46.0) 05/09/19 11:12 MCV 103.7 fL (80-95) H 05/09/19 11:12 MCH 32.6 pg (27.0-33.0) 05/09/19 11:12 MCHC 31.5 g/dL (32.0-36.0) L 05/09/19 11:12 RDW 15.0 % (11.7-14.6) H 05/09/19 11:12 Plt Count 252 x1000/uL (130-400) 05/09/19 11:12 MPV 10.2 fL (8.0-11.0) 05/09/19 11:12 Immature Gran % 0.7 05/09/19 11:12 Neutrophils % 54.9 05/09/19 11:12 Lymphocytes % 30.8 05/09/19 11:12 Monocytes % 11.9 05/09/19 11:12 Eosinophils % 1.1 05/09/19 11:12 Basophils % 0.6 05/09/19 11:12 Absolute Neutrophils 2.99 k/cumm (1.2-6.7) 05/09/19 11:12 Absolute Lymphocytes 1.68 k/cumm (1.2-3.4) 05/09/19 11:12 Absolute Monocytes 0.65 k/cumm (0.11-0.7) 05/09/19 11:12 Absolute Eosinophils 0.06 k/cumm (0.0-0.7) 05/09/19 11:12 Absolute Basophils 0.03 k/cumm (0.0-0.2) 05/09/19 11:12 Sodium 143 mmol/L (136-145) 05/09/19 11:12 Potassium 3.8 mmol/L (3.5-5.1) 05/09/19 11:12 Chloride 105 mmol/L (98-107) 05/09/19 11:12 Carbon Dioxide 31.1 mmol/L (21.0-32.0) 05/09/19 11:12 Anion Gap 6.9 mmol/L (3-11) 05/09/19 11:12 BUN 9 mg/dL (7-18) D 05/09/19 11:12 Creatinine 0.55 mg/dL (0.55-1.02) 05/09/19 11:12 Estimated GFR/1.73 m2 >= 60.00 (mL/min/1.73m2) 05/09/19 11:12 Glucose 101 mg/dL (74-106) 05/09/19 11:12 Lactate 2.6 mmol/L (0.6-1.4) H* 05/09/19 11:12 Calcium 8.6 mg/dL (8.5-10.1) 05/09/19 11:12 Magnesium 1.8 mg/dL (1.8-2.4) 05/07/19 15:48 Total Bilirubin 0.4 mg/dL (0.2-1.0) 05/09/19 11:12 AST 36 U/L (15-37) 05/09/19 11:12 ALT 31 U/L (14-59) 05/09/19 11:12 Alkaline Phosphatase 232 U/L (46-116) H 05/09/19 11:12 Troponin I < 0.05 ng/Ml (<0.06) 05/07/19 15:48 NT-Pro-B Natriuret Pep 474 pg/mL (<300) 05/07/19 15:48 Total Protein 6.4 g/dL (6.4-8.2) 05/09/19 11:12 Albumin 2.4 g/dL (3.4-5.0) L 05/09/19 11:12 TSH 2.30 uIU/mL (0.36-3.74) 05/07/19 20:05 Urine Color Yellow (Yellow) 05/07/19 16:00 Urine Clarity Clear (Clear) 05/07/19 16:00 Urine pH 6.0 (5-8) 05/07/19 16:00 Ur Specific [place] 1.020 (1.005-1.025) 05/07/19 16:00 Urine Protein Negative mg/dL (Negative) 05/07/19 16:00 Urine Ketones Trace mg/dL (Negative) H 05/07/19 16:00 Urine Blood Negative (Negative) 05/07/19 16:00 Urine Nitrite Negative (Negative) 05/07/19 16:00 Urine Bilirubin Negative (Negative) 05/07/19 16:00 Urine Urobilinogen 1.0 EU/dL (Up TO 0.2) H 05/07/19 16:00 Ur Leukocyte Esterase Negative (Negative) 05/07/19 16:00 Urine Glucose Negative mg/dL (Negative) 05/07/19 16:00 Total Valproic Acid 42.1 ug/mL (50-100) L 05/08/19 06:10
[2019-05-10] MEDS: levoFLOXacin 500 MG, levoFLOXacin 250 MG 750 MG PO (14:37)
--- NOTE | 2019-05-10 14:59 | NUR.NOTE ---
Nursing Note: PT WITH RIGHT FOOT, 4TH TOENAIL JUST HANGING. MD IN ROOM AND CLIPPED THE NAIL DOWN. BANDAIDE APPLIED.
--- NOTE | 2019-05-10 15:41 | CHAPLAIN ---
Melissa was in bed waiting to be cleaned up, she told me, when I visited. She is from the [facility] and not sure if any family members will be visiting her while she is here. She was pleasant and easily engaged in a conversation. I left when staff arrived to clean her up as she'd requested.
[2019-05-10] MEDS: Primidone 250 MG TAB 500 MG PO (16:53)
--- NOTE | 2019-05-10 18:28 | PDOC.CMPRO ---
Care Management Progress Note S/O: Melissa remains inpatient today, with new requirement of oxygen and increased fluid, she was started on IV Lasix today per MD. Return to [facility] delayed, anticipate Melissa will return to the [facility] with no change to overall plan, once medically ready. Melissa continues to be pleasant in interaction. CM continues to follow. A: 83 year old female admitted to [facility] P: Melissa will return to the [facility], her residence, when ready per MD. She will transport via [facility]. CM continues to follow.
[2019-05-10] MEDS: Pantoprazole 40 MG VIAL IVP (20:11)
[2019-05-10] MEDS: Melatonin 3 MG TAB PO (21:39)
[2019-05-11 00:30] VITALS: BP 157/74; PULSE 78; RESP 18; TEMP 36.7; O2SAT 96
[2019-05-11 04:06] VITALS: BP 127/84; PULSE 74; RESP 16; TEMP 36.2; O2SAT 96
[2019-05-11] MEDS: Heparin 5,000 UNITS/ML VIAL 5000 UNITS SC (06:16)
[2019-05-11 06:55] LABS: HCT 38.7 % (36.0-46.0); HGB 12.2 g/dL (12.0-15.5); Mean Corp. HGB Concentration 31.5 g/dL (32.0-36.0); Mean Corpuscular Hemoglobin 32.6 pg (27.0-33.0); Mean Corpuscular Volume 103.5 fL (80-95); Mean Platelet Volume 10.1 fL (8.0-11.0); Platelet Count 241 x1000/uL (130-400); RBC 3.74 m/cumm (4.00-5.20); RBC Distribution Width 14.9 % (11.7-14.6); White Blood Cell Count 5.27 k/cumm (4.4-10.8)
[2019-05-11 07:00] VITALS: BP 124/67; PULSE 69; RESP 20; TEMP 36.7; O2SAT 93
[2019-05-11] MEDS: Furosemide 20 MG/2 ML VIAL IVP (08:16)
[2019-05-11] MEDS: Lactobacillus Acidophilus CAP 1 CAP PO (08:16)
[2019-05-11] MEDS: Divalproex Sodium 500 MG TAB.ER.24H 1000 MG PO (08:17)
[2019-05-11] MEDS: Propranolol 60 MG CAPCR PO (08:17)
[2019-05-11] MEDS: Magnesium Oxide 400 MG TAB PO (08:17)
[2019-05-11] MEDS: Primidone 250 MG TAB PO (08:18)
[2019-05-11] MEDS: Acetaminophen 325 MG TAB 650 MG PO (08:18)
[2019-05-11 08:38] VITALS: O2SAT 93
[2019-05-11 08:44] LABS: Anion Gap 8.5 mmol/L (3-11); BUN 13 mg/dL (7-18); CO2 31.5 mmol/L (21.0-32.0); CREATININE 0.38 mg/dL (0.55-1.02); Calcium 8.7 mg/dL (8.5-10.1); Chloride 106 mmol/L (98-107); Glucose 97 mg/dL (74-106); Magnesium 1.6 mg/dL (1.8-2.4); Potassium 3.9 mmol/L (3.5-5.1); Sodium 146 mmol/L (136-145)
--- NOTE | 2019-05-11 09:32 | DSE_ITS ---
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 (5) Elevated liver enzymes: Status: Acute (6) Physical deconditioning: Status: Acute (7) Superior mesenteric artery atherosclerosis: Status: Acute Discharge Plan Disposition Patient Disposition: SNF (LEVEL 1) [facility] Condition: Stable Discharge Details Chief Complaint: GenMedical Clinical Impression: Altered mental status, Pneumonia, UTI (urinary tract infection) Reason For Visit: PNEUMONIA WITH HYPOXEMIA/EFFUSION,AMS,UTI WITH PSE Admit Date/Time: 05/07/19 18:07 Admit Provider: Maikel Lopez Attending Provider: Maikel Lopez Primary Care Provider: Natasha Araujo [facility] Course: 83 y/o F with recent pseudomonal UTI treated with cipro admitted from the [facility] with hypoxia and abdominal pain. Upon arrival she was afebrile and HD stable. Labs notable for a lactate of 3.3 which downtrended with IVF. CT a/p showed moderate to severe segmental stenosis in the proximal superior mesenteric artery secondary to plaque without bowel ischemia. She was started on aspirin and statin. CT shest showed no evidence PE but did show R pleural effusion and evidence of PNA vs atelectasis as well as pulmonary HTN.Patient was treated with IV duiresis and zosyn which was transitioned to levofloxacin. She completed a total of 5 days of antibiotics. She continued to require minimal supplemental 02 through course of stay which may be secondary to her underlying pulmonary HTN. She was discharged in stable condition back to the [facility]. Home Meds and New Rx's Prescriptions: New aspirin 81 mg tablet,delayed release (DR/EC) 81 mg PO DAILY Qty: 30 RF: 0 atorvastatin 10 mg tablet 10 mg PO DAILY Qty: 30 RF: 0 Continued ergocalciferol (vitamin D2) 50,000 unit capsule 50,000 unit PO QWEEK RF: 0 furosemide 20 mg tablet 20 mg PO DAILY RF: 0 alum-mag hydroxide-simeth 200-200-20 mg/5 mL suspension 30 ml PO PRN PRNRF: 0 bismuth subsalicylate 525 mg/15 mL suspension 525 mg PO ONCE PRNRF: 0 ICaps AREDS 1 EACH tablet,delayed release (DR/EC) 1 cap PO BID RF: 0 acetaminophen [Tylenol] 325 MG tablet 650 mg PO PRN RF: 0 loperamide 2 MG tablet 2 mg PO BID RF: 0 divalproex 500 mg Tablet Extended Release 24 Hr 1,000 mg PO BID RF: 0 potassium chloride 10 mEq Capsule, Extended Release 40 meq RF: 0 diphenoxylate-atropine [Lomotil] 2.5-0.025 mg Tablet 1 tab PO Q6H PRNRF: 0 Certavite-Antioxidant 1 EACH tablet 1 tab PO DAILY RF: 0 primidone 250 MG tablet 500 mg PO DAILY RF: 0 primidone 250 MG tablet 250 mg PO DAILY RF: 0 propranolol 60 MG capsule,extended release 24 hr 60 mg PO DAILY RF: 0 lactase 1 CAP tablet 1 cap PO DIRECTED RF: 0 Lactobacillus acidophilus [Acidophilus] Capsule 1 cap PO DAILY RF: 0 omeprazole 20 mg Tablet,Delayed Release (Dr/Ec) 20 mg PO DAILY RF: 0 cholecalciferol (vitamin D3) [Vitamin D3] 5,000 unit Tablet 50,000 unit PO DAILY RF: 0 magnesium oxide 400 mg magnesium Tablet 400 mg PO DAILY RF: 0 Discontinued linezolid 600 mg tablet 600 mg PO BID Qty: 10 RF: 0 ciprofloxacin HCl 250 mg tablet 250 mg PO BID Qty: 14 RF: 0 ranitidine HCl 300 mg Tablet 300 mg PO DAILY RF: 0 Discharge Instructions Stand Alone Forms: Nursing Discharge Form Activity:: Activity as Tolerated Equipment/Supplies:: Oxygen (L/min Below) Diet:: Normal Diet Discharge Orders Discharge Orders: Discharge Order (Routine); Ordered 05/11/19 Ordered By: Lisa Cheema Discharge Data Discharge Date/Time-TO BE ENTERED AT DEPARTURE: 05/11/19 09:29 DS: Summary Status at Discharge Functional status at discharge: uses cane/walker Overall status at discharge: patient is progressing back to baseline Mental Status: mental status grossly normal Speech and Movement: speech and movement normal Mood: congruent mood Affect: normal affect Time Spent with Patient providing and/or coordinating discharge services: Greater than 30 minutes Exam Narrative Exam Narrative: GEN: NAD, on NC HEENT: NCAT, MMM CV: RRR, nl s1 and s2, systolic murmur LUNGS: CTAB, slightly diminished at R base ABD: NABS, soft, NT, ND EXT: symmetrical, 1+ edema NEUO: alert, oriented, non focal Psych Mental Status: mental status grossly normal Speech and Movement: speech and movement normal Mood: congruent mood Affect: normal affect DS: Data Vitals/I&O Vitals and I&O: Vital Signs Temperature 36.7 C 05/11/19 07:00 Temperature Source Temporal Artery Scan 05/11/19 07:00 Pulse 69 05/11/19 07:00 Pulse Rhythm Regular 05/10/19 23:50 Pulse 71 05/07/19 18:50 Respiratory Rate 20 05/11/19 07:00 Respiratory Effort Non-Labored 05/10/19 23:50 Respiratory Depth Normal 05/10/19 23:50 Respiratory Pattern Normal 05/10/19 23:50 Blood Pressure 124/67 05/11/19 07:00 Blood Pressure Mean 88 05/07/19 18:46 Blood Pressure Position Sitting 05/07/19 14:50 Pulse Oximetry 93 L 05/11/19 08:38 Oxygen Delivery Method Nasal Cannula 05/11/19 08:38 Oxygen Flow Rate 1 05/11/19 08:38 Pain Level 8 05/11/19 08:18 Intake & Output 05/10/19 05/10/19 05/11/19 11:59 23:59 11:59 Intake Total 500 / 500 50 / 50 Balance 500 / 500 50 / 50 Weight 96 kg 91.9 kg Intake: IV 50 / 50 50 / 50 Oral 450 / 450 Other: Urine Color Yellow Urine Appearance Clear Comment after being incontinent of urine ,bladder scan performed and zero result. 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 KERR S/P RIGHT EYE EXTRACTION 10/05/13; DR. KERR Physical deconditioning (Acute) Urgency of urination (Chronic) Vaginal spotting (Chronic 01/26/16) Surgical History Cholecystectomy Extraction of cataract 09/21/13; LEFT 10/05/13; RIGHT H/O tubal ligation (Chronic) Family History Mother Essential hypertension Personal history of malignant neoplasm BREAST Heart disease Stroke Father Personal history of malignant neoplasm BONE Sister Personal history of malignant neoplasm BREAST Heart disease Cirrhosis, alcoholic Transplanted heart Son Arthritis Social History Smoking/Tobacco Use Status: Never Alcohol Intake: never Drug use: Never Substance use type: does not use Housing: [facility] Do you feel safe at home: Yes Do you feel safe in your relationship?: Yes Additional Social history: She lives at the [facility]. She has 4 grown children. She has never driven. She does not smoke, drink ETOH, or use illicit drugs.
[2019-05-11 09:42] VITALS: O2SAT 96
[2019-05-11 10:18] VITALS: O2SAT 93
[2019-05-11] MEDS: levoFLOXacin 500 MG, levoFLOXacin 250 MG 750 MG PO (10:28)
--- NOTE | 2019-05-11 11:35 | PDOC.CMDIS ---
- If Service Date Differs Date of service: 05/11/19 Time of Service: 11:35 LACE Index Scoring Tool - Questions: Length of Stay (in days): 4 - 6 Acuity (Admit via E.D.?): Yes E.D. Visits: 2 - Answers: Total Score: 9 Risk of Readmission: Low Risk Care Management Discharge Reason for Hospitalization: Pneumonia with Hypoxemia/Effusion, AMS, UTI with pseudomonas Discharge Plan: Melissa is being discharged back to the [facility] where she resides. CM contacted the [facility], reviewed patient's discharge plan, including new need for oxygen. [facility] states they have oxygen on site and will be available to patient. Patient will return by [employer] coordinated by [facility]. Patient/Family Education Needs: Nursing will review discharge instructions with Melissa and with the receiving nursing facility. Services Needed at Discharge: Oxygen Therapy, Transportation (CM coordinated transport via [employer])
--- NOTE | 2019-05-11 14:21 | CHAPLAIN ---
I visited with Melissa this morning and gave her a prayer shawl before she was discharged back to the [facility]. She said a friend from the [facility] called her last night to check on her. Melissa seemed to be comfortable with returning to the [facility].
== END 2019-05-11 11:17 | disposition skilled nursing facility (03) | DRG 947 ==
LOC: ER 18:44 → MS 19:18
PROVIDERS: Family Medicine; Physician Assistant; Admitting Provider Family Medicine; Emergency Provider Physician Assistant; PCP Family Medicine; Visit Provider Internal Medicine
DX: R41.82 Altered mental status, unspecified (principal); J18.1 Lobar pneumonia, unspecified organism; G40.319 Generalized idiopathic epilepsy and epileptic syndromes, intractable, without status epilepticus; N39.0 Urinary tract infection, site not specified; J91.8 Pleural effusion in other conditions classified elsewhere; E87.2 Acidosis; K55.1 Chronic vascular disorders of intestine; R09.02 Hypoxemia; I27.23 Pulmonary hypertension due to lung diseases and hypoxia; K59.00 Constipation, unspecified; R53.81 Other malaise; B96.5 Pseudomonas (aeruginosa) (mallei) (pseudomallei) as the cause of diseases classified elsewhere; G25.2 Other specified forms of tremor; R74.8 Abnormal levels of other serum enzymes
CPT/HCPCS: 36415; 51701; 71275; 74177; 80048; 80053; 85027; 87081; 96361; 96365; 99223; 99232; 99238; 99285; 71046; 80164; 81003; 83605; 83735; 83880; 84443; 84484; 85025; 87324; J0696; J1644; J1941; J2543; J3490

== ENCOUNTER 2019-07-20 12:03 | Outpatient (REF) | payer MEDICARE, MEDICAID, SELFPAY ==
[2019-07-20 13:00] LABS: Abs Immature Grans 0.02 k/cumm (0.0-0.09); Absolute Basophil Count 0.02 k/cumm (0.0-0.2); Absolute Eosinophil Count 0.04 k/cumm (0.0-0.7); Absolute Lymphocyte Count 1.82 k/cumm (1.2-3.4); Absolute Monocyte Count 0.83 k/cumm (0.11-0.7); Absolute Neutrophil Count 2.73 k/cumm (1.2-6.7); Basophils % 0.4; Eosinophils % 0.7; HCT 38.3 % (36.0-46.0); HGB 12.2 g/dL (12.0-15.5); Immature Grans % 0.4 %; Lymphocytes % 33.3; Mean Corp. HGB Concentration 31.9 g/dL (32.0-36.0); Mean Corpuscular Hemoglobin 33.1 pg (27.0-33.0); Mean Corpuscular Volume 103.8 fL (80-95); Mean Platelet Volume 10.5 fL (8.0-11.0); Monocytes % 15.2; Platelet Count 232 x1000/uL (130-400); RBC 3.69 m/cumm (4.00-5.20); RBC Distribution Width 14.9 % (11.7-14.6); White Blood Cell Count 5.46 k/cumm (4.4-10.8)
[2019-07-20 13:40] LABS: VALPROIC ACID 44.6 ug/mL (50-100)
[2019-07-20 13:46] LABS: ALT 35 U/L (14-59); AST 60 U/L (15-37); Albumin 2.5 g/dL (3.4-5.0); Alkaline Phosphatase 103 U/L (46-116); Anion Gap 8.4 mmol/L (3-11); BUN 10 mg/dL (7-18); Bilirubin, Total 0.4 mg/dL (0.2-1.0); CO2 31.6 mmol/L (21.0-32.0); CREATININE 0.37 mg/dL (0.55-1.02); Calcium 8.7 mg/dL (8.5-10.1); Calculated LDL 77 mg/dL (<100); Chloride 104 mmol/L (98-107); Cholesterol 139 mg/dL (<200); Glucose 86 mg/dL (74-106); HDL Cholesterol 33 mg/dL (40-60); Magnesium 1.7 mg/dL (1.8-2.4); Potassium 4.3 mmol/L (3.5-5.1); Sodium 144 mmol/L (136-145); Triglyceride 145 mg/dL (<150)
[2019-07-21 16:03] LABS: Primidone 3.5 mcg/mL (5.0 - 12.0)
== END 2019-07-20 12:23 ==
LOC: LBN 12:03
PROVIDERS: PCP Family Medicine; Visit Provider Family Medicine
DX: I10 Essential (primary) hypertension (principal); E03.9 Hypothyroidism, unspecified; R53.83 Other fatigue; R56.9 Unspecified convulsions
CPT/HCPCS: 80053; 80061; 80164; 80188; 83735; 84443; 85025

== ENCOUNTER 2019-08-24 09:27 | Outpatient (REF) | payer MEDICARE, MEDICAID, SELFPAY ==
[2019-08-24 10:13] LABS: Abs Immature Grans 0.01 k/cumm (0.0-0.09); Absolute Basophil Count 0.03 k/cumm (0.0-0.2); Absolute Eosinophil Count 0.11 k/cumm (0.0-0.7); Absolute Lymphocyte Count 2.01 k/cumm (1.2-3.4); Absolute Monocyte Count 0.58 k/cumm (0.11-0.7); Absolute Neutrophil Count 2.07 k/cumm (1.2-6.7); Basophils % 0.6; Eosinophils % 2.3; HGB 12.7 g/dL (12.0-15.5); Immature Grans % 0.2 %; Lymphocytes % 41.8; Mean Corp. HGB Concentration 31.8 g/dL (32.0-36.0); Mean Corpuscular Hemoglobin 33.1 pg (27.0-33.0); Mean Corpuscular Volume 104.2 fL (80-95); Mean Platelet Volume 11.2 fL (8.0-11.0); Monocytes % 12.1; Platelet Count 151 x1000/uL (130-400); RBC 3.84 m/cumm (4.00-5.20); RBC Distribution Width 14.9 % (11.7-14.6); White Blood Cell Count 4.81 k/cumm (4.4-10.8)
[2019-08-24 11:11] LABS: ALT 26 U/L (14-59); AST 49 U/L (15-37); Magnesium 1.7 mg/dL (1.8-2.4); Vitamin B12 589 pg/mL (193-986)
== END 2019-08-24 09:47 ==
LOC: LBN 09:27
PROVIDERS: PCP Family Medicine; Visit Provider Family Medicine
DX: R56.9 Unspecified convulsions (principal); I10 Essential (primary) hypertension; E03.9 Hypothyroidism, unspecified
CPT/HCPCS: 82607; 83735; 84450; 84460; 85025

== ENCOUNTER 2019-09-16 16:01 | Outpatient (REF) | payer MEDICARE, MEDICAID, SELFPAY | END 2019-09-16 16:21 | LOC: NCHCN 16:01 | PROVIDERS: PCP Family Medicine; Visit Provider Family Medicine | DX: E83.42 Hypomagnesemia (principal); Z53.8 Procedure and treatment not carried out for other reasons | CPT/HCPCS: 83735 ==

== ENCOUNTER 2019-09-21 11:10 | Outpatient (REF) | payer MEDICARE, MEDICAID, SELFPAY ==
[2019-09-21 12:18] LABS: Magnesium 1.8 mg/dL (1.8-2.4)
== END 2019-09-21 11:30 ==
LOC: LBN 11:10
PROVIDERS: PCP Family Medicine; Visit Provider Family Medicine
DX: E83.42 Hypomagnesemia (principal)
CPT/HCPCS: 83735

== ENCOUNTER → 2019-12-01 12:19 | Outpatient (BNVA) | payer MEDICARE, MEDICAID, SELFPAY | PROVIDERS: PCP Family Medicine; Referring Provider Family Medicine; Visit Provider Psychiatry & Neurology Neurology | DX: G40.319 Generalized idiopathic epilepsy and epileptic syndromes, intractable, without status epilepticus (principal); G20 Parkinson's disease | CPT/HCPCS: 99214 ==

== ENCOUNTER 2019-12-01 18:48 | Outpatient (REF) | payer MEDICARE, MEDICAID, SELFPAY ==
[2019-12-01 19:13] LABS: Abs Immature Grans 0.02 k/cumm (0.0-0.09); Absolute Basophil Count 0.02 k/cumm (0.0-0.2); Absolute Eosinophil Count 0.09 k/cumm (0.0-0.7); Absolute Lymphocyte Count 2.85 k/cumm (1.2-3.4); Absolute Neutrophil Count 3.19 k/cumm (1.2-6.7); Basophils % 0.3; Eosinophils % 1.4; HCT 39.8 % (36.0-46.0); HGB 12.7 g/dL (12.0-15.5); Immature Grans % 0.3 %; Lymphocytes % 43.4; Mean Corp. HGB Concentration 31.9 g/dL (32.0-36.0); Mean Corpuscular Volume 106.7 fL (80-95); Mean Platelet Volume 10.6 fL (8.0-11.0); Monocytes % 6.1; Neutrophils % 48.5; Platelet Count 193 x1000/uL (130-400); RBC 3.73 m/cumm (4.00-5.20); RBC Distribution Width 15.7 % (11.7-14.6); White Blood Cell Count 6.57 k/cumm (4.4-10.8)
[2019-12-01 19:35] LABS: ALT 45 U/L (14-59); AST 85 U/L (15-37); Albumin 2.6 g/dL (3.4-5.0); Alkaline Phosphatase 159 U/L (46-116); Anion Gap 11.1 mmol/L (3-11); BUN 22 mg/dL (7-18); Bilirubin, Total 0.5 mg/dL (0.2-1.0); CO2 25.9 mmol/L (21.0-32.0); CREATININE 0.68 mg/dL (0.55-1.02); Calcium 8.5 mg/dL (8.5-10.1); Chloride 103 mmol/L (98-107); Folate 4.1 ng/mL (8.6-20.0); Glucose 162 mg/dL (74-106); Potassium 4.1 mmol/L (3.5-5.1); Sodium 140 mmol/L (136-145); Total Protein 6.7 g/dL (6.4-8.2)
== END 2019-12-01 19:08 ==
LOC: NCHCN 18:48
PROVIDERS: PCP Family Medicine; Visit Provider Family Medicine
DX: R19.7 Diarrhea, unspecified (principal); M81.0 Age-related osteoporosis without current pathological fracture; J98.4 Other disorders of lung; E66.01 Morbid (severe) obesity due to excess calories
CPT/HCPCS: 80053; 82746; 85025

== ENCOUNTER 2019-12-03 12:49 | Outpatient (REF) | payer MEDICARE, MEDICAID, SELFPAY ==
[2019-12-03 15:07] LABS: Magnesium 1.7 mg/dL (1.8-2.4)
[2019-12-03 15:18] LABS: VALPROIC ACID 53.8 ug/mL (50-100)
[2019-12-05 12:06] LABS: Primidone 11.3 mcg/mL (5.0 - 12.0)
== END 2019-12-03 13:09 ==
LOC: LBN 12:49
PROVIDERS: PCP Family Medicine; Visit Provider Family Medicine
DX: G25.0 Essential tremor (principal); R56.9 Unspecified convulsions; Z51.81 Encounter for therapeutic drug level monitoring; Z79.899 Other long term (current) drug therapy
CPT/HCPCS: 80164; 80188; 83735

== ENCOUNTER → 2020-01-03 13:40 | Outpatient (BNVA) | payer MEDICARE, MEDICAID, SELFPAY | PROVIDERS: PCP Family Medicine; Referring Provider Family Medicine; Visit Provider Psychiatry & Neurology Neurology | DX: G40.319 Generalized idiopathic epilepsy and epileptic syndromes, intractable, without status epilepticus (principal); G20 Parkinson's disease; I10 Essential (primary) hypertension | CPT/HCPCS: 99213 ==

== ENCOUNTER → 2020-02-01 14:43 | Outpatient (BNVA) | payer MEDICARE, MEDICAID, SELFPAY | PROVIDERS: PCP Family Medicine; Referring Provider Family Medicine; Visit Provider Psychiatry & Neurology Neurology | DX: G40.319 Generalized idiopathic epilepsy and epileptic syndromes, intractable, without status epilepticus (principal); G25.0 Essential tremor; G20 Parkinson's disease; I10 Essential (primary) hypertension; M54.5 Low back pain; R29.6 Repeated falls; R25.8 Other abnormal involuntary movements; Z99.3 Dependence on wheelchair | CPT/HCPCS: 99214 ==

== ENCOUNTER 2020-02-28 15:39 | Outpatient (REF) | payer MEDICARE, MEDICAID, SELFPAY ==
[2020-02-28 16:46] LABS: Abs Immature Grans 0.01 10^3/uL (0.0-0.06); Absolute Basophil Count 0.04 10^3/uL (0.0-0.2); Absolute Eosinophil Count 0.09 10^3/uL (0.0-0.7); Absolute Lymphocyte Count 1.63 10^3/uL (1.2-3.4); Absolute Neutrophil Count 1.97 10^3/uL (1.2-6.7); Basophils % 0.9; Eosinophils % 2.1; HCT 42.3 % (36.0-46.0); HGB 13.2 g/dL (11.2-15.7); Immature Grans % 0.2; Lymphocytes % 37.6; MCH 34.1 pg (27.0-33.0); MCHC 31.2 % (32.0-36.0); MCV 109.3 fL (80-95); MPV 11.3 fL (8.0-11.0); Monocytes % 13.8; Neutrophils % 45.4; Nucleated RBC 0 %; Platelet Count 145 10^3/uL (130-400); RBC 3.87 10^6/uL (3.93-5.22); RDW 14.5 % (11.7-14.6); RDW-SD 58.3 fL; WBC 4.34 10^3/uL (4.4-10.8)
[2020-02-28 17:35] LABS: Alkaline Phosphatase 139 U/L (46-116)
[2020-02-28 17:50] LABS: Folate > 20.0 ng/mL (8.6-20.0)
== END 2020-02-28 15:59 ==
LOC: NCHCN 15:39
PROVIDERS: PCP Family Medicine; Visit Provider Family Medicine
DX: K55.1 Chronic vascular disorders of intestine (principal); R53.1 Weakness; I27.23 Pulmonary hypertension due to lung diseases and hypoxia; F33.8 Other recurrent depressive disorders; R74.8 Abnormal levels of other serum enzymes; E66.01 Morbid (severe) obesity due to excess calories
CPT/HCPCS: 82746; 84075; 85025

== ENCOUNTER 2020-04-10 12:34 | Inpatient (IN) | payer MEDICARE, MEDICAID, SELFPAY ==
[2020-04-10] VITALS (95 sets, daily range): BP systolic 78–144; BP diastolic 26–73; PULSE 62–85; RESP 10–22; TEMP 36.4–36.8; O2SAT 83–99
--- NOTE | 2020-04-10 | DI.CT_ITS ---
EXAM: CT ABDOMEN W CLINICAL HISTORY: Abd pain, TECHNIQUE: Imaging Protocol: Axial computed tomography images with coronal and sagittal reformatted images were created and reviewed CONTRAST MATERIAL: Intravenous: Omnipaque 350 Contrast volume:100 mL Oral: No COMPARISON: CT CT CHEST PE ABD PELVIS W from 05/07/2019 FINDINGS: The examination is limited due to patient motion artifact. ABDOMEN: Lung Bases: There are bilateral basilar consolidations. There does appear to be a small left pleural effusion. Liver: Normal density. No measurable mass. Portal, Superior Mesenteric, and Splenic Veins: Unremarkable. Gallbladder and Biliary Tract: Status post cholecystectomy. No biliary ductal dilatation. Pancreas: Normal density, no abnormal calcifications or inflammatory process. Spleen: Normal. Adrenals: No masses seen. Kidneys: Normal size, contour and axis. No radiodense stones or obstructive uropathy. No masses seen. Abdominal Aorta: Abdominal portion non-dilated. Atherosclerosis. Bowel: No obstruction or bowel wall thickening. There is diverticulosis of the colon but no evidence of acute diverticulitis. Peritoneal Cavity: No ascites. Stable persistent increased attenuation in the mesentery. Lymph Nodes: Within normal limits. Bones: There is a hemangioma in the T11 vertebral body. Degenerative changes are seen in the spine. Soft Tissues: Unremarkable. IMPRESSION: 1. Mild generalized haziness of the mesenteric root. This is similar compared to the prior examinati on and may represent mesenteric panniculitis but an acute enteritis cannot be excluded. 2. Bilateral basilar infiltrates and a small left pleural effusion which may represent atelectasis or pneumonia. RADIATION DOSE DELIVERED: 974.46mGy.cm Total DLP DATA REPOSITORY: All CT scans at this facility are submitted to the National Radiology Data Registry (NRDR) Dose Index Registry (DIR) with the [employer] ([employer]). RADIATION OPTIMIZATION: All CT scans at this facility use at least one of these dose optimization te chniques: automated exposure control; mA and/or kV adjustment per patient size (includes targeted exa ms where dose is matched to clinical indication); or iterative reconstruction.
--- NOTE | 2020-04-10 | DI.CT_ITS ---
EXAM: CT HEAD WO CLINICAL HISTORY: encephalopathy. TECHNIQUE: Imaging Protocol: Axial computed tomography images with coronal and sagittal reformatted images were created and reviewed COMPARISON: CT CT HEAD WO from 10/05/2018 FINDINGS: Ventricles and Extra axial spaces: Normal in size and morphology for the patient's age. Hemorrhage: None. Cerebral parenchyma: There are areas of decreased attenuation in the white matter most consistent wit h chronic microvascular ischemic change. No evidence of an acute infarct. Midline shift: None. Brainstem/Cerebellum: Normal. Calvarium: Normal. Visualized Paranasal sinuses/Mastoids: Mucosal thickening in the right sphenoid sinus. Visualized pa ranasal sinuses and mastoids are otherwise clear. Soft Tissues: Unremarkable. IMPRESSION: No acute intracranial process. RADIATION DOSE DELIVERED: 747.07mGy.cm Total DLP DATA REPOSITORY: All CT scans at this facility are submitted to the National Radiology Data Registry (NRDR) Dose Index Registry (DIR) with the [employer] (ACR). RADIATION OPTIMIZATION: All CT scans at this facility use at least one of these dose optimization te chniques: automated exposure control; mA and/or kV adjustment per patient size (includes targeted exa ms where dose is matched to clinical indication); or iterative reconstruction.
--- NOTE | 2020-04-10 12:15 | RT.EKG_ITS ---
APPROVED REPORT Exam: Resting ECG Patient Location: E HR:73 bpm ECG Measurements Heart Rate 73 AXIS NJ 187 P 55 QRSd 91 QRS 29 QT 379 T 44 QTc 418 Conclusion Sinus rhythm...normal P axis, V-rate 60- 99 sinus rhythm at 73, normal axis, nonspecific ST changes, no STEMI, nondiagnostic EKG
[2020-04-10] MEDS: Normal Saline Flush 10 ML SYR IVP ×2 (12:40→23:45)
--- NOTE | 2020-04-10 12:54 | W.ED.GENAD ---
Discharge Plan Discharge Details Chief Complaint: RespSymp Admit Date/Time: 04/10/20 14:57 Admit Provider: Noelle Norton Attending Provider: Noelle Norton Primary Care Provider: Archana Foote ED Provider: Shanelle Krause Discharge Data Discharge Date/Time-TO BE ENTERED AT DEPARTURE: 04/10/20 17:29 Medical Decision Making Melissa Rose is an 84-year-old woman with a history of parkinsonism, hypertension, epilepsy who presented to the emergency department with change in mental status over the past few days, also with cough. On exam patient is somewhat ill-appearing. She is resting comfortably in bed with her eyes closed. She arouses easily to voice. She answers some questions. Concern for pneumonia, UTI, metabolic/lyte derangement, ACS, other. Exam/history at this time are not consistent with meningitis, acute aortic pathology. Patient was [facility] on file stating DNR/DNI, limited interventions only. Plan for EKG, screening labs, chest x-ray, IV fluid hydration, IV vancomycin, IV Zosyn. Anticipate admission. Blood pressure with drop in systolic 78, returned to systolic 107 rapidly with 1 L normal saline bolus initiated. No change in patient examination. Labs reviewed, no leukocytosis, no anemia, creatinine 0.51, carbon dioxide 34.1. Borderline UA. Patient admitted to medicine. Clinical impression: Dehydration, encephalopathy Disposition: [facility] inpatient Medical Records Medical records reviewed: Yes I reviewed the patient's medical records. Imaging Data Radiologic Study: Attestation: I personally reviewed and interpreted this imaging study as follows: Radiologist's impression: EXAM: XR PORTABLE CHEST AP CLINICAL HISTORY: cough TECHNIQUE: 2D digital imaging was performed. COMPARISON: CR XR CHEST 2V PA LATERAL from 05/10/2019 FINDINGS: MEDIASTINUM: Normal. HEART: Normal. PULMONARY VASCULATURE: Normal. LUNGS: Clear. PLEURAL SPACE: No pleural effusion or pneumothorax. BONE:Within normal limits for the patient's age. OTHER FINDINGS:Normal. IMPRESSION: No acute pulmonary findings. Lab Data Lab results reviewed: Yes I reviewed the patient's lab results. Labs: 04/10/20 12:50 Urine - Reflex from Ua Urine Culture - Pending 04/10/20 13:33 Blood Blood Culture - Pending 04/10/20 13:15 Blood Blood Culture - Pending Laboratory Tests Range/Units 11/16/20 11/16/20 11/16/20 12:40 12:40 12:40 WBC (4.4-10.8) 10^3/uL 5.24 RBC (3.93-5.22) 10^6/uL 3.74 L Hgb (11.2-15.7) g/dL 13.0 Hct (36.0-46.0) % 40.8 MCV (80-95) fL 109.1 H MCH (27.0-33.0) pg 34.8 H MCHC (32.0-36.0) % 31.9 L RDW (11.7-14.6) % 14.9 H Plt Count (130-400) 10^3/uL 116 L MPV (8.0-11.0) fL 10.7 Immature Gran % 0.6 Neutrophils % 51.2 Lymphocytes % 33.0 Monocytes % 13.5 Eosinophils % 1.1 Basophils % 0.6 Nucleated RBC % % 0 Absolute Neutrophils (1.2-6.7) 10^3/uL 2.68 Absolute Lymphocytes (1.2-3.4) 10^3/uL 1.73 Absolute Monocytes (0.1-0.8) 10^3/uL 0.71 Absolute Eosinophils (0.0-0.7) 10^3/uL 0.06 Absolute Basophils (0.0-0.2) 10^3/uL 0.03 RBC Morphology See below Macrocytosis 2+ VBG Lactate (0.6-1.4) mmol/L Sodium (136-145) mmol/L 143 Potassium (3.5-5.1) mmol/L 4.1 Chloride (98-107) mmol/L 103 Carbon Dioxide (21.0-32.0) mmol/L 34.1 H Anion Gap (3-11) mmol/L 5.9 BUN (7-18) mg/dL 26 H Creatinine (0.55-1.02) mg/dL 0.51 L Estimated GFR/1.73 m2 (mL/min/1.73m2) >= 60.00 Glucose (74-106) mg/dL 101 Calcium (8.5-10.1) mg/dL 8.1 L Total Bilirubin (0.2-1.0) mg/dL 0.4 AST (15-37) U/L 63 H ALT (14-59) U/L 12 L Alkaline Phosphatase (46-116) U/L 161 H Troponin I (<0.06) ng/mL < 0.05 NT-Pro-B Natriuret Pep (<300) pg/mL 326 H Total Protein (6.4-8.2) g/dL 6.9 Albumin (3.4-5.0) g/dL 2.5 L Urine Color (Yellow) Urine Clarity (Clear) Urine pH (5-8) Ur Specific [place] (1.005-1.025) Urine Protein (Negative) mg/dL Urine Ketones (Negative) mg/dL Urine Blood (Negative) Urine Nitrite (Negative) Urine Bilirubin (Negative) Urine Urobilinogen (Up TO 0.2) EU/dL Ur Leukocyte Esterase (Negative) Urine RBC (0-2) HPF Urine WBC (0-5) HPF Ur Epithelial Cells (Negative) HPF Urine Crystals (Negative) HPF Urine Bacteria (Negative) HPF Urine Casts (Negative) LPF Urine Mucus (Negative) Urine Other (Negative) Ur Culture Indicated? Urine Glucose (Negative) mg/dL Range/Units 04/10/20 04/10/20 12:50 13:33 WBC (4.4-10.8) 10^3/uL RBC (3.93-5.22) 10^6/uL Hgb (11.2-15.7) g/dL Hct (36.0-46.0) % MCV (80-95) fL MCH (27.0-33.0) pg MCHC (32.0-36.0) % RDW (11.7-14.6) % Plt Count (130-400) 10^3/uL MPV (8.0-11.0) fL Immature Gran % Neutrophils % Lymphocytes % Monocytes % Eosinophils % Basophils % Nucleated RBC % % Absolute Neutrophils (1.2-6.7) 10^3/uL Absolute Lymphocytes (1.2-3.4) 10^3/uL Absolute Monocytes (0.1-0.8) 10^3/uL Absolute Eosinophils (0.0-0.7) 10^3/uL Absolute Basophils (0.0-0.2) 10^3/uL RBC Morphology Macrocytosis VBG Lactate (0.6-1.4) mmol/L 2.8 H* Sodium (136-145) mmol/L Potassium (3.5-5.1) mmol/L Chloride (98-107) mmol/L Carbon Dioxide (21.0-32.0) mmol/L Anion Gap (3-11) mmol/L BUN (7-18) mg/dL Creatinine (0.55-1.02) mg/dL Estimated GFR/1.73 m2 (mL/min/1.73m2) Glucose (74-106) mg/dL Calcium (8.5-10.1) mg/dL Total Bilirubin (0.2-1.0) mg/dL AST (15-37) U/L ALT (14-59) U/L Alkaline Phosphatase (46-116) U/L Troponin I (<0.06) ng/mL NT-Pro-B Natriuret Pep (<300) pg/mL Total Protein (6.4-8.2) g/dL Albumin (3.4-5.0) g/dL Urine Color (Yellow) Yellow Urine Clarity (Clear) Clear Urine pH (5-8) 7.0 Ur Specific [place] (1.005-1.025) 1.025 Urine Protein (Negative) mg/dL Negative Urine Ketones (Negative) mg/dL Negative Urine Blood (Negative) Negative Urine Nitrite (Negative) Negative Urine Bilirubin (Negative) Negative Urine Urobilinogen (Up TO 0.2) EU/dL 0.2 Ur Leukocyte Esterase (Negative) Trace H Urine RBC (0-2) HPF 0-2 Urine WBC (0-5) HPF 5-10 Ur Epithelial Cells (Negative) HPF Moderate Urine Crystals (Negative) HPF Negative Urine Bacteria (Negative) HPF Few Urine Casts (Negative) LPF Negative Urine Mucus (Negative) Trace Urine Other (Negative) Few renal Ur Culture Indicated? Yes Urine Glucose (Negative) mg/dL Negative ECG Data Attestation: I personally reviewed and interpreted this ECG (s) as follows: Interpretation: EKG shows sinus rhythm at 73, normal axis, nonspecific ST changes, no STEMI, nondiagnostic EKG HPI General Mode of arrival: ambulatory. Date/Time Provider Initiated Documentation: 04/10/20 12:46. Limitations to Documentation: no limitations. Information obtained by: patient, RN/MD, RN notes reviewed and old records reviewed. HPI Narrative: Melissa Rose is an 84-year-old woman with a history of parkinsonism, epilepsy, hypertension presenting to the emergency department with change in mental status. Patient is a resident at the [facility]. Patient has had a decline in mental status over the past few days, sleeping more than usual, becoming less conversant than usual. Per the [facility], patient normally does not move her extremities very much and last she is eating when she does attempt to feed herself. She has not been able to feed herself today. Patient is reported to be an aspiration risk. Patient had similar symptoms over the summer when she was diagnosed with pneumonia and UTI. Patient has had mild cough per the [facility]. Per Dr. Mcgregor at the [facility], goals of care are mainly comfort, but this would include antibiotics, IV fluids. Major interventions are not consistent with goals of care. No known fever, no vomiting, no diarrhea, no apparent shortness of breath. Patient does not answer most questions. When asked if she has pain patient states no, am I supposed to? She denies any other symptoms. Related Data Home Medications Medication Instructions Recorded Confirmed ICaps AREDS 1 cap PO BID 03/26/16 04/10/20 primidone 500 mg PO DAILY 10/03/16 04/10/20 propranolol 60 mg PO DAILY 10/03/16 04/10/20 lactase 1 cap PO DIRECTED 12/19/16 04/10/20 furosemide 20 mg tablet 20 mg PO DAILY 02/04/18 04/10/20 divalproex 1,000 mg PO BID 10/05/18 04/10/20 Lactobacillus acidophilus 1 cap PO TID 05/07/19 04/10/20 [Acidophilus] magnesium oxide 400 mg PO TID 05/07/19 04/10/20 omeprazole 20 mg PO DAILY 05/07/19 04/10/20 aspirin 81 mg PO DAILY #30 tab 05/11/19 04/10/20 Oxygen #1 each 12/01/19 02/01/20 cholecalciferol (vitamin D3) 125 50,000 unit PO .once a month tab 12/01/19 04/10/20 mcg (5,000 unit) tablet nystatin 100,000 unit/gram topical 1 applic TP BID 12/01/19 04/10/20 powder skin cleanser,general pad TP TID 12/01/19 02/01/20 carbidopa 25 mg-levodopa 100 mg 2 tab PO TID 01/03/20 04/10/20 tablet folic acid 1 mg tablet 1 mg PO DAILY 01/03/20 04/10/20 acetaminophen 500 mg capsule 500 mg PO TID PRN cap 02/01/20 04/10/20 atorvastatin 10 mg PO QPM 04/10/20 04/10/20 Previous Rx's Medication Instructions Recorded aspirin 81 mg PO DAILY #30 tab 05/11/19 Allergies Allergy/AdvReac Type Severity Reaction Status Date / Time ethosuximide Allergy Intermediate Unverified 04/10/20 15:49 lactose AdvReac Intermediate Intolerant Unverified 04/10/20 15:49 General MILLICENT: 2 Review of Systems Narrative: Constitutional: denies fevers Eyes: denies eye pain ENT: denies ear pain, dental pain, sore throat Cardiovascular: denies chest pain Respiratory: denies SOB, reported cough per the [facility], patient denies GI: denies abdominal pain, vomiting, diarrhea : denies flank pain MSK: denies back pain, neck pain, arthralgias, myalgias Skin: denies rash Neuro: denies headaches, numbness, weakness Review of systems per Radha and the patient given altered mental status [facility] Medical History (Updated 04/12/20 @ 08:57 by Deborah Moore MD) Anxiety 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 KERR S/P RIGHT EYE EXTRACTION 10/05/13; DR. KERR Physical deconditioning Postmenopausal bleeding (04/24/91) Tension type headache Urgency of urination Vaginal spotting (01/26/16) Surgical History Cholecystectomy Extraction of cataract 09/21/13; LEFT 10/05/13; RIGHT H/O tubal ligation Family History Mother Essential hypertension Personal history of malignant neoplasm BREAST Heart disease Stroke Father Personal history of malignant neoplasm BONE Sister Personal history of malignant neoplasm BREAST Heart disease Cirrhosis, alcoholic Transplanted heart Son Arthritis Social History Smoking/Tobacco Use Status: Never Smoking risk assessment performed?: Yes Alcohol Intake: never Drug use: Never Substance use type: does not use Housing: retirement Do you feel safe at home: Yes Do you feel safe in your relationship?: Yes Additional Social history: She lives at the [facility]. She has 4 grown children. She has never driven. She does not smoke, drink ETOH, or use illicit drugs. Exam Narrative Exam Narrative: Constitutional: Somewhat ill appearing, pleasant, does not respond to most questions HENT: head atraumatic/normocephalic/normal inspection, mucous membranes moist Eyes: conjunctiva normal, sclera normal, pupils 3mm b/l Neck: no stridor, normal ROM, trachea midline Chest: normal inspection Resp: normal work of breathing, LCTAB Cardio: normal rate, normal rhythm GI: abdomen soft, non-tender, non-distended Skin: warm, dry, normal color, no rash Neuro: Eyes closed, arouses easily with eyes open to voice, GCS 14, wiggles toes bilaterally, squeezes fingers bilaterally, does not follow other motor commands, grossly non-focal, answering some questions Ext: +1 edema bilateral lower extremities, no posterior calf tenderness palpation Course Lab/Test Results Lab/Test Results: 04/10/20 12:49 Blood Blood Culture - Pending 04/10/20 12:49 Blood Blood Culture - Pending
--- NOTE | 2020-04-10 13:00 | DI.RAD_ITS ---
EXAM: XR PORTABLE CHEST AP CLINICAL HISTORY: cough TECHNIQUE: 2D digital imaging was performed. COMPARISON: CR XR CHEST 2V PA LATERAL from 05/10/2019 FINDINGS: MEDIASTINUM: Normal. HEART: Normal. PULMONARY VASCULATURE: Normal. LUNGS: Clear. PLEURAL SPACE: No pleural effusion or pneumothorax. BONE:Within normal limits for the patient's age. OTHER FINDINGS:Normal. IMPRESSION: No acute pulmonary findings. DATA REPOSITORY: RADIATION DOSE DELIVERED:
[2020-04-10 13:03] LABS: Abs Immature Grans 0.03 10^3/uL (0.0-0.06); Absolute Basophil Count 0.03 10^3/uL (0.0-0.2); Absolute Eosinophil Count 0.06 10^3/uL (0.0-0.7); Absolute Lymphocyte Count 1.73 10^3/uL (1.2-3.4); Absolute Monocyte Count 0.71 10^3/uL (0.1-0.8); Absolute Neutrophil Count 2.68 10^3/uL (1.2-6.7); Basophils % 0.6; Eosinophils % 1.1; HCT 40.8 % (36.0-46.0); Immature Grans % 0.6; MCH 34.8 pg (27.0-33.0); MCHC 31.9 % (32.0-36.0); MCV 109.1 fL (80-95); MPV 10.7 fL (8.0-11.0); Monocytes % 13.5; Neutrophils % 51.2; Nucleated RBC 0 %; Platelet Count 116 10^3/uL (130-400); RBC 3.74 10^6/uL (3.93-5.22); RDW 14.9 % (11.7-14.6); RDW-SD 61.3 fL; WBC 5.24 10^3/uL (4.4-10.8)
[2020-04-10 13:19] LABS: Diff Comment RBC Morph Reviewed; Macrocytosis 2+
[2020-04-10 13:22] LABS: ALT 12 U/L (14-59); AST 63 U/L (15-37); Albumin 2.5 g/dL (3.4-5.0); Alkaline Phosphatase 161 U/L (46-116); Anion Gap 5.9 mmol/L (3-11); BUN 26 mg/dL (7-18); Bilirubin, Total 0.4 mg/dL (0.2-1.0); CO2 34.1 mmol/L (21.0-32.0); CREATININE 0.51 mg/dL (0.55-1.02); Calcium 8.1 mg/dL (8.5-10.1); Chloride 103 mmol/L (98-107); Glucose 101 mg/dL (74-106); Potassium 4.1 mmol/L (3.5-5.1); Sodium 143 mmol/L (136-145); Total Protein 6.9 g/dL (6.4-8.2)
[2020-04-10 13:27] LABS: Troponin I < 0.05 ng/mL (<0.06)
[2020-04-10] MEDS: PIPERACILLIN/TAZO 4.5 GM in Normal Saline 100 ML IVPB (13:31)
[2020-04-10 13:34] LABS: Bilirubin Negative (Negative); Blood Negative (Negative); Clarity Clear (Clear); Glucose Negative (Negative); Ketones Negative (Negative); Leukocyte Esterase Trace (Negative); Nitrite Negative (Negative); Specific Gravity 1.025 (1.005-1.025); Urobilinogen 0.2 EU/dL (Up TO 0.2)
[2020-04-10 13:43] LABS: Bacteria Few HPF (Negative); C & S Indicated? Yes; Casts Negative LPF (Negative); Crystals Negative HPF (Negative); Epithelial Cells Moderate HPF (Negative); Mucus Trace (Negative); Other Cells Few Renal (Negative); RBC 0-2 HPF (0-2)
[2020-04-10] MEDS: Normal Saline 1,000 ML 150 ML IV (13:54)
[2020-04-10 13:59] LABS: Lactate 2.8 mmol/L (0.6-1.4)
[2020-04-10] MEDS: VANCOMYCIN 1,500 MG in Normal Saline 250 ML 166.6666 MG IVPB (14:01)
[2020-04-10 14:22] LABS: NT-proBNP 326 pg/mL (<300)
--- NOTE | 2020-04-10 15:02 | HPE_ITS ---
Date of service: 04/10/20 Time of Service: 16:40 Assessment and Plan Assessment and plan (1) Encephalopathy acute: Status: Acute Assessment and plan: Ddx: toxic metabolic due to PNA vs breathrough seizu res and post-ictal state vs other NURSING PROGRAM COORDINATOR process Will treat underlying conditions and monitor mental status. Neurology consulted. (2) Bilateral pneumonia: Status: Acute Assessment and plan: Bibasilar, present on admission. Concern for COVID-19 - PUI. For now, will treat as aspiration pneumonia with zosyn. Obtain swallow eval when ok for PO intake, per general surgery. 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 NPO for now (4) Hypotension: Status: Acute Assessment and plan: Transient. Now improved. ?vagal response to pain. Will monitor in the ICU. Continue IVF. (5) Intractable generalized idiopathic epilepsy without status epilepticus: Status: Chronic Assessment and plan: Convert anticonvulsants to IV. Obtain EEG. Check CPK. Consulting Neurology. (6) Dehydration: Status: Acute Assessment and plan: Continue IVF initiated in the ED. (7) DVT prophylaxis: Status: Acute Assessment and plan: SC heparin (8) Discharge planning issues: Status: Acute Assessment and plan: DNR/DNI Admit to the ICU. Total Critical Care Time 45 minutes. History of Present Illness History of Present Illness Chief Complaint: patient is not herself Narrative: Ms Rose is an 84 y.o. female who is a resident of the [facility] who has a PMHx of parkinsonism, intractable epilepsy, hypertension, depression who presented to [facility] ED with change in mental status over the last couple of days. The patient has been less talkative lately and is not acting like herself. She has not had a fever. At baseline, the patient does not move much, unless to feed herself, per ED provider. Dr Car shared with us that the patient does follow commands, talks more than what is being described lately, and is a good history provider. Her initial ED workup was essentially negative for a UTI or pneumonia, but while the studies were pending, she received empiric antibiotics. She did appear slightly dehydrated by labs. However, while in the ED, the patient became acutely hypotensive to SBPs in he 70s. This improved quickly with IVF bolus. Additionally, on the exam the patient was found to have LLQ pain. The patient cannot quantify how long she has had the pain. She denies nausea or feeling like she needs to urinate. Hospitalists were asked to take over care. The patient is DNR/DNI per [facility]ST form. Per her son Jeb, the patient would be willing to be admitted to the ICU, and Melissa herself stated the same to me. Finally, the [facility] did have a staff member test positive for COVID-19, and Ms Rose may have been exposed to this staff member. The last time she would have had any exposure to them would have been >1 week ago. 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 KERR S/P RIGHT EYE EXTRACTION 10/05/13; DR. KERR Physical deconditioning Urgency of urination Vaginal spotting (01/26/16) Surgical History Cholecystectomy Extraction of cataract 09/21/13; LEFT 10/05/13; RIGHT H/O tubal ligation Family History Mother Essential hypertension Personal history of malignant neoplasm BREAST Heart disease Stroke Father Personal history of malignant neoplasm BONE Sister Personal history of malignant neoplasm BREAST Heart disease Cirrhosis, alcoholic Transplanted heart Son Arthritis Social History Smoking/Tobacco Use Status: Never Smoking risk assessment performed?: Yes Alcohol Intake: never Drug use: Never Substance use type: does not use Housing: shelter Do you feel safe at home: Yes Do you feel safe in your relationship?: Yes Additional Social history: She lives at the [facility]. She has 4 grown children. She has never driven. She does not smoke, drink ETOH, or use illicit drugs. Meds Home Medications and Allergies Home Medications Medication Instructions Recorded Confirmed Type ICaps AREDS 1 cap PO BID 03/26/16 04/10/20 History primidone 500 mg PO DAILY 10/03/16 04/10/20 History propranolol 60 mg PO DAILY 10/03/16 04/10/20 History lactase 1 cap PO DIRECTED 12/19/16 04/10/20 History furosemide 20 mg tablet 20 mg PO DAILY 02/04/18 04/10/20 History divalproex 1,000 mg PO BID 10/05/18 04/10/20 History Lactobacillus acidophilus 1 cap PO TID 05/07/19 04/10/20 History [Acidophilus] magnesium oxide 400 mg PO TID 05/07/19 04/10/20 History omeprazole 20 mg PO DAILY 05/07/19 04/10/20 History aspirin 81 mg PO DAILY #30 tab 05/11/19 04/10/20 Rx Oxygen #1 each 12/01/19 02/01/20 History cholecalciferol (vitamin D3) 125 50,000 unit PO .once a month tab 12/01/19 04/10/20 History mcg (5,000 unit) tablet nystatin 100,000 unit/gram topical 1 applic TP BID 12/01/19 04/10/20 History powder skin cleanser,general pad TP TID 12/01/19 02/01/20 History carbidopa 25 mg-levodopa 100 mg 2 tab PO TID 01/03/20 04/10/20 History tablet folic acid 1 mg tablet 1 mg PO DAILY 01/03/20 04/10/20 History acetaminophen 500 mg capsule 500 mg PO TID PRN cap 02/01/20 04/10/20 History atorvastatin 10 mg PO QPM 04/10/20 04/10/20 History Allergies Allergy/AdvReac Type Severity Reaction Status Date / Time ethosuximide Allergy Intermediate Unverified 11/16/20 15:49 lactose AdvReac Intermediate Intolerant Unverified 04/10/20 15:49 Exam Narrative Exam Narrative: General: Elderly obese female, laying comfortably nearly flat in bed, somewhat lethargic, but arousable, answering some questions, follows commands on my exam, slow to respond to some questions, cannot tell me why she is in the hospital today Neurological: A&Ox1, some (minimal) movement in BUE/BLEs, follows commands, n ot able to tell her story today, slow to respond to questions, requires repetitive requests before follows command Psychiatric: difficult to assess given mental status Skin: Visible skin clean, dry intact; pale HEENT: Atraumatic, normocephalic, EOMI, somewhat dry MM, clear oropharynx, no submandibular or cervical lymphadenopathy, large neck diameter, ?goiter, no JVD Cardiovascular: RRR, no m/r/g Lungs: Diminished breath sounds B, wearing O2 (3L) Gastrointestinal: soft, very tender in LLQ even on minimal palpation; otherwise, nontender, +BS Genitourinary: deferred Extremities: 2+ BLE edema, trace pedal pulses B Results Imaging Additional studies: CXR: No acute pulmonary findings. CT head: 1. No acute intracranial pathology. 2. Moderate mucosal thickening of the right sphenoid sinus. 3. Chronic findings, as above. CT abdomen/pelvis: 1. Mild generalized haziness of the mesenteric root. Similar finding present on prior CT abdomen from 04/06/2019. Differential includes chronic etiology such as mesenteric panniculitis, however acute process such as enteritis cannot be excluded. 2. Prominent bibasilar consolidation, which could reflect atelectasis or pneumonia. 3. Chronic findings, as above. Labs Result diagrams: 04/10/20 12:40 04/10/20 12:40 Labs: Laboratory Results - last 24 hr 04/10/20 04/10/20 04/10/20 12:40 12:40 12:40 WBC 5.24 RBC 3.74 L Hgb 13.0 Hct 40.8 MCV 109.1 H MCH 34.8 H MCHC 31.9 L RDW 14.9 H Plt Count 116 L MPV 10.7 Immature Gran % 0.6 Neutrophils % 51.2 Lymphocytes % 33.0 Monocytes % 13.5 Eosinophils % 1.1 Basophils % 0.6 Nucleated RBC % 0 Absolute Neutrophils 2.68 Absolute Lymphocytes 1.73 Absolute Monocytes 0.71 Absolute Eosinophils 0.06 Absolute Basophils 0.03 RBC Morphology See below Macrocytosis 2+ VBG Lactate Sodium 143 Potassium 4.1 Chloride 103 Carbon Dioxide 34.1 H Anion Gap 5.9 BUN 26 H Creatinine 0.51 L Estimated GFR/1.73 m2 >= 60.00 Glucose 101 Calcium 8.1 L Total Bilirubin 0.4 AST 63 H ALT 12 L Alkaline Phosphatase 161 H Troponin I < 0.05 NT-Pro-B Natriuret Pep 326 H Total Protein 6.9 Albumin 2.5 L Urine Color Urine Clarity Urine pH Ur Specific [place] Urine Protein Urine Ketones Urine Blood Urine Nitrite Urine Bilirubin Urine Urobilinogen Ur Leukocyte Esterase Urine RBC Urine WBC Ur Epithelial Cells Urine Crystals Urine Bacteria Urine Casts Urine Mucus Urine Other Ur Culture Indicated? Urine Glucose 04/10/20 04/10/20 12:50 13:33 WBC RBC Hgb Hct MCV MCH MCHC RDW Plt Count MPV Immature Gran % Neutrophils % Lymphocytes % Monocytes % Eosinophils % Basophils % Nucleated RBC % Absolute Neutrophils Absolute Lymphocytes Absolute Monocytes Absolute Eosinophils Absolute Basophils RBC Morphology Macrocytosis VBG Lactate 2.8 H* Sodium Potassium Chloride Carbon Dioxide Anion Gap BUN Creatinine Estimated GFR/1.73 m2 Glucose Calcium Total Bilirubin AST ALT Alkaline Phosphatase Troponin I NT-Pro-B Natriuret Pep Total Protein Albumin Urine Color Yellow Urine Clarity Clear Urine pH 7.0 Ur Specific [place] 1.025 Urine Protein Negative Urine Ketones Negative Urine Blood Negative Urine Nitrite Negative Urine Bilirubin Negative Urine Urobilinogen 0.2 Ur Leukocyte Esterase Trace H Urine RBC 0-2 Urine WBC 5-10 Ur Epithelial Cells Moderate Urine Crystals Negative Urine Bacteria Few Urine Casts Negative Urine Mucus Trace Urine Other Few renal Ur Culture Indicated? Yes Urine Glucose Negative Last Vital Signs Temp 36.6 C 04/10/20 12:57 Pulse 66 04/10/20 13:46 Resp 18 04/10/20 13:50 BP 110/47 L 04/10/20 13:46 Pulse Ox 95 04/10/20 13:50 COVID-19 Screening Have you, or household traveled for leisure in last 14 days?: No Had IN PERSON contact w/suspected or confirmed C-19 person: Yes
--- NOTE | 2020-04-10 15:30 | INITIAL_ITS ---
- If Service Date Differs Date of service: 04/11/20 Time of Service: 08:37 Care Management Initial Assess REASON FOR HOSPITALIZATION:: Dehydration, Encephalopathy PAST MEDICAL HISTORY/PAST SURGICAL HISTORY:: 84-year-old woman with a history of parkinsonism, hypertension, epilepsy who presented to the emergency department with change in mental status over the past few days, also with cough. 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 in [place], [place]. Two of her sons, Benny and Jeb reside locally and two other sons, Myke and Ferdinand reside out of state. She has been at the [facility] for a few years with no plans of returning home, she is no longer able to ambulate and a gertrudis lift is utilized for transfers. She requires total assistance, though is able to feed herself. CURRENT FUNCTIONAL STATUS:: Melissa is in the ICU, being closely monitored. ADVANCE DIRECTIVES:: COLST on file at [facility]. Has patient been provided with info about the portal/API?: Yes Did the patient sign up for the portal?: No CODE STATUS:: DNR/DNI INSURANCE COVERAGE / FINANCIAL ISSUES:: Medicare. Medicaid CURRENT HOME/COMMUNITY SERVICES/EQUIPMENT:: Resident at [facility] manages services and equipment. Melissa is bed bound, and staff utilizes gertrudis lift for transfers. PRIMARY CARE PHYSICIAN:: Natasha Araujo DO. POTENTIAL DISCHARGE NEEDS:: Coordinated return to [facility], to include transportation. Palliative consult, speech consult ordered. PATIENT/FAMILY EDUCATION NEEDS:: Review of instructions, discuss Ask Me Three. ANTICIPATED BARRIERS TO DISCHARGE:: None identified. TRANSPORTATION:: EMS-vs-W/C van dependent of safety of transfers and ability to sit. PLAN:: Melissa will return to the [facility], her residence, when ready per MD. She will transport via EMS-vs-W/C Van; dependent on ability.
[2020-04-10 16:00] LABS: Troponin I < 0.05 ng/mL (<0.06)
[2020-04-10] MEDS: Omnipaque 350 MG/ML 100 ML BTL IJ (16:39)
--- NOTE | 2020-04-10 17:01 | DI.VRAD_ITS ---
PROCEDURE INFORMATION: Exam: CT Head Without Contrast Exam date and time: 04/10/2020 4:27 PM Age: 84 years old Clinical indication: Altered mental status/memory loss TECHNIQUE: Imaging protocol: Computed tomography of the head without contrast. COMPARISON: CT HEAD WO 10/05/2018 6:55 PM FINDINGS: Brain: Nonspecific hypodensities of the periventricular and deep subcortical white matter, most likely secondary to chronic small vessel ischemic change. No intracranial hemorrhage or extra-axial fluid collection. No evidence of mass effect or midline shift. Carr-white matter differentiation is normal. Cerebral ventricles: Prominence of the ventricles and sulci, most likely attributed to parenchymal volume loss. Bones/joints: No acute osseus lesion or fracture. Paranasal sinuses: Moderate mucosal thickening of the right sphenoid sinus. Mastoid air cells: Unremarkable. Soft tissues: Unremarkable. IMPRESSION: 1. No acute intracranial pathology. 2. Moderate mucosal thickening of the right sphenoid sinus. 3. Chronic findings, as above. Dictated and Authenticated by: Alfie Hopper MD. Ordering:OPAL Wilson MD
--- NOTE | 2020-04-10 17:32 | DI.VRAD_ITS ---
PROCEDURE INFORMATION: Exam: CT Abdomen With Contrast Exam date and time: 04/10/2020 4:31 PM Age: 84 years old Clinical indication: Abdominal pain TECHNIQUE: Imaging protocol: Computed tomography images of the abdomen with intravenous contrast. COMPARISON: CT ABDOMEN PELVIS W 04/06/2019 3:03 PM FINDINGS: Lungs: Prominent bibasilar consolidation. Liver: Normal. No mass. Gallbladder and bile ducts: The gallbladder is surgically absent. Pancreas: Normal. No ductal dilation. Spleen: Normal. No splenomegaly. Adrenals: Normal. No mass. Kidneys and ureters: No hydronephrosis or nephrolithiasis. Stomach and bowel: Scattered colonic diverticulosis without evidence of diverticulitis. Small bowel loops are unremarkable. Intraperitoneal space: Mild generalized haziness of the mesenteric root. Lymph nodes: Unremarkable. No enlarged lymph nodes. Vasculature: Atherosclerotic calcifications of the aorta and major branches. Bones/joints: T12 vertebral body hemangioma. No acute fracture. Soft tissues: Unremarkable. IMPRESSION: 1. Mild generalized haziness of the mesenteric root. Similar finding present on prior CT abdomen from 04/06/2019. Differential includes chronic etiology such as mesenteric panniculitis, however acute process such as enteritis cannot be excluded. 2. Prominent bibasilar consolidation, which could reflect atelectasis or pneumonia. 3. Chronic findings, as above. Dictated and Authenticated by: Alfie Hopper MD. Ordering:OPAL Wilson MD
[2020-04-10] MEDS: PHENobarbital 130 MG/ML VIAL 50 MG IVP (19:30)
[2020-04-10] MEDS: Carbidopa 25/Levodopa 100 TAB PO (19:30)
[2020-04-10] MEDS: VALPROATE SODIUM 500 MG in Normal Saline 50 ML 55 MG IVPB (19:30)
[2020-04-10] MEDS: Heparin 5,000 UNITS/ML VIAL 5000 UNITS SC (19:31)
[2020-04-10] MEDS: PIPERACILLIN/TAZO 3.375 GM in Normal Saline 50 ML IVPB (19:33)
[2020-04-10 19:57] LABS: Lactate 2.2 mmol/L (0.6-1.4)
[2020-04-10 20:28] LABS: Creatine Kinase 28 U/L (26-192)
[2020-04-11] VITALS (60 sets, daily range): BP systolic 74–141; BP diastolic 36–81; PULSE 62–144; RESP 10–21; TEMP 36.6–36.8; O2SAT 85–98
--- NOTE | 2020-04-11 | DI.US_ITS ---
EXAM: US PELVIS TRANSVAGINAL CLINICAL HISTORY: suspected pelvic malignancy; post-menopausal bleed. TECHNIQUE: Transabdominal and transvaginal pelvic ultrasound was performed using standard protocol. COMPARISON: No exams were available for comparison FINDINGS: KIDNEYS: Kidneys are symmetric in size. No evidence of renal calculi. No evidence of hydronephrosis. No renal mass or cyst identified. UTERUS: Position: Anteverted. Size: 7.0 long by 2.9 AP by 3.0 transverse cm Endometrium: 0.4 cm. Normal for patient's menstrual status. Myometrium: Unremarkable. Cervix: Small amount of fluid within the cervical canal. OVARIES: Not visualized transabdominally or transvaginally. No adnexal mass is seen sonographically. CUL-DE-SAC: Free fluid: None. Other: None. IMPRESSION: 1. Normal sonographic appearance of the kidneys. 2. Normal-appearing uterus with endometrial stripe within normal limits. 3. The ovaries were not visualized transabdominally or transvaginally. No adnexal mass is seen sonog raphically. DATA REPOSITORY:
[2020-04-11] MEDS: VALPROATE SODIUM 500 MG in Normal Saline 50 ML 55 MG IVPB ×3 (01:19→11:56)
[2020-04-11] MEDS: Normal Saline 1,000 ML 150 ML IV (03:03)
[2020-04-11] MEDS: PIPERACILLIN/TAZO 3.375 GM in Normal Saline 50 ML IVPB ×4 (03:04→21:20)
[2020-04-11] MEDS: Heparin 5,000 UNITS/ML VIAL 5000 UNITS SC (03:05)
[2020-04-11] MEDS: PHENobarbital 130 MG/ML VIAL 50 MG IVP (06:50)
--- NOTE | 2020-04-11 07:17 | SCONE_ITS ---
Date of service: 04/11/20 Time of Service: 07:17 Assessment and Plan Assessment and plan (1) Abdominal pain: Status: Acute Assessment and plan: Mrs. Rose is a 84 year old female who presented with altered mental status. On exam she complained of LLQ pain. CT abdomen was done which showed chronic fat stranding of the mesnetary. The descending colon was normal. She does have diverticula but I did not see any thickening of the bowel wall or fat starnding around the diverticula. Patient endorses abdominal pain like this in the past that resolves on its own. Exam and labs not consistent with diverticulitis. 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 Treatment options include waiting for resolution, prednisone if symptoms persist and laparoscopic or IR biopsy. I do not recommend biopsy especially with patients history and exam. I dont think she needs prednisone at this time. Recommend giving her a clear liquid diet and treating her pain with prn tylenol and if able ibuprofen or toradol. Appreciate the consult I will see the patient tomorrow again. If patients symptoms worsen then may need repeat CT scan with IV and Oral contrast to include the pelvis. Qualifiers: Abdominal location: lower abdomen, unspecified Qualified Code(s): R10.30 - Lower abdominal pain, unspecified History of Present Illness History of Present Illness Chief Complaint: Abdominal pain Narrative: Ms Rose is an 84 y.o. female who is a resident of the [facility] who has a PMHx of parkinsonism, intractable epilepsy, hypertension, depression who presented to [facility] ED yesterday with change in mental status over the last couple of days. The patient has been less talkative lately and is not acting like herself. She has not had a fever. At baseline, the patient does not move much, unless to feed herself, per ED provider. Dr Car shared with us that the patient does follow commands, talks more than what is being described lately, and is a good history provider. Her initial ED workup was essentially negative for a UTI or pneumonia, but while the studies were pending, she received empiric antibiotics. She did appear slightly dehydrated by labs. However, while in the ED, the patient became acutely hypotensive to SBPs in he 70s. This improved quickly with IVF bolus. Additionally, on the exam the patient was found to have LLQ pain. The patient cannot quantify how long she has had the pain. She denies nausea or feeling like she needs to urinate. Hospitalists were asked to take over care. The patient is DNR/DNI per COLST form. Per her son Jeb, the patient would be willing to be admitted to the ICU, and Melissa herself stated the same to me. Finally, the [facility] did have a staff member test positive for COVID-19, and Ms Rose may have been exposed to this staff member. The last time she would have had any exposure to them would have been >1 week ago. I was asked to see the patient by Dr. Norton for the abdominal pain. It is described as LLQ. When I saw the patient this morning she stated that her pain was lower abdomen. She also tells me that she has had this pain before and it usually gets better on its own. Her last BM was normal and was 2 days ago. Patient states that she doesn't go to the bathroom daily but every couple of days. She denies urinary symptoms. She is coughing while I am in the room. She brings up white sputum. She denies SOB. CT scan reviewed by myself. There is mesenteric stranding noted that is chronic. Unfortunately the CT scan was done of only the abdomen. The sigmoid colon is dont completely appreciated. She does have diverticulosis but I do not see and wall thickening or inflammation. CT scan ABdomen: FINDINGS: The examination is limited due to patient motion artifact. ABDOMEN: Lung Bases: There are bilateral basilar consolidations. There does appear to be a small left pleural effusion. Liver: Normal density. No measurable mass. Portal, Superior Mesenteric, and Splenic Veins: Unremarkable. Gallbladder and Biliary Tract: Status post cholecystectomy. No biliary ductal dilatation. Pancreas: Normal density, no abnormal calcifications or inflammatory process. Spleen: Normal. Adrenals: No masses seen. Kidneys: Normal size, contour and axis. No radiodense stones or obstructive uropathy. No masses seen. Abdominal Aorta: Abdominal portion non-dilated. Atherosclerosis. Bowel: No obstruction or bowel wall thickening. There is diverticulosis of the colon but no evidence of acute diverticulitis. Peritoneal Cavity: No ascites. Stable persistent increased attenuation in the mesentery. Lymph Nodes: Within normal limits. Bones: There is a hemangioma in the T11 vertebral body. Degenerative changes are seen in the spine. Soft Tissues: Unremarkable. IMPRESSION: 1. Mild generalized haziness of the mesenteric root. This is similar compared to the prior examination and may represent mesenteric panniculitis but an acute enteritis cannot be excluded. 2. Bilateral basilar infiltrates and a small left pleural effusion which may represent atelectasis or pneumonia. Consults Consult date: 04/11/20 Requesting physician: Noelle Norton Review of Systems Constitutional Constitutional: Denies fever(s), Denies headache(s), Denies poor appetite, Denies weakness and Denies weight loss Eyes Eyes: Denies change in vision ENT Ears, Nose, Mouth, and Throat: Denies dysphagia, Denies headache(s), Denies hoarseness and Denies odynophagia Cardiovascular Cardiovascular: Denies chest pain, Denies irregular heart rhythm, Denies palpitations and Denies dyspnea Respiratory Respiratory: Reports cough and Denies dyspnea Gastrointestinal Gastrointestinal: Reports as per HPI, Denies dysphagia, Denies dyspepsia, Denies heartburn and Denies odynophagia Genitourinary Genitourinary: Denies difficulty voiding and Denies dysuria Musculoskeletal Musculoskeletal: Reports system reviewed and no additional complaints, except as documented Integumentary/Breasts Skin/Breast: Reports system reviewed and no additional complaints, except as documented Neurologic Neurologic: Reports system reviewed and no additional complaints, except as documented, Denies headache(s) and Denies weakness Psychiatric Psychiatric: Reports system reviewed and no additional complaints, except as documented Endocrine Endocrine: Reports system reviewed and no additional complaints, except as documented and Denies palpitations Hematologic/Lymphatic Hematologic/Lymphatic: Reports system reviewed and no additional complaints, except as documented [facility] Medical History (Updated 04/11/20 @ 07:30 by Darby Espinoza MD) Anxiety 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 KERR S/P RIGHT EYE EXTRACTION 10/05/13; DR. KERR Physical deconditioning Postmenopausal bleeding (04/24/91) Tension type headache Urgency of urination Vaginal spotting (01/26/16) Surgical History (Updated 04/11/20 @ 07:28 by Darby Espinoza MD) Cholecystectomy Extraction of cataract 09/21/13; LEFT 10/05/13; RIGHT H/O tubal ligation Family History Mother Essential hypertension Personal history of malignant neoplasm BREAST Heart disease Stroke Father Personal history of malignant neoplasm BONE Sister Personal history of malignant neoplasm BREAST Heart disease Cirrhosis, alcoholic Transplanted heart Son Arthritis Social History Smoking/Tobacco Use Status: Never Smoking risk assessment performed?: Yes Alcohol Intake: never Drug use: Never Substance use type: does not use Housing: care home Do you feel safe at home: Yes Do you feel safe in your relationship?: Yes Additional Social history: She lives at the [facility]. She has 4 grown children. She has never driven. She does not smoke, drink ETOH, or use illicit drugs. Exam Const General: cooperative, comfortable and no acute distress Nutritional Appearance: obese Orientation: alert and awake HENMT Head: normocephalic and atraumatic Eyes Pupils: PERRL Resp Effort & Inspection: normal respiratory effort Auscultation: clear to auscultation bilaterally Cardio Rate: regular rate Rhythm: regular rhythm Heart Sounds: no gallops, no murmurs and no rubs GI Inspection: normal to inspection Palpation: soft, no hepatosplenomegaly and tender ( tenderness lower abdomen, no guarding or rebound) Auscultation: normal bowel sounds Results Last Vital Signs Temp 97.9 F 04/11/20 02:32 Pulse 85 04/11/20 02:32 Resp 13 04/11/20 02:32 BP 126/54 L 04/11/20 02:01 Pulse Ox 96 04/11/20 02:32 Labs Result diagrams: 04/10/20 12:40 04/10/20 12:40 Labs: Laboratory Results - last 24 hr 04/10/20 04/10/20 04/10/20 12:40 12:40 12:40 WBC 5.24 RBC 3.74 L Hgb 13.0 Hct 40.8 MCV 109.1 H MCH 34.8 H MCHC 31.9 L RDW 14.9 H Plt Count 116 L MPV 10.7 Immature Gran % 0.6 Neutrophils % 51.2 Lymphocytes % 33.0 Monocytes % 13.5 Eosinophils % 1.1 Basophils % 0.6 Nucleated RBC % 0 Absolute Neutrophils 2.68 Absolute Lymphocytes 1.73 Absolute Monocytes 0.71 Absolute Eosinophils 0.06 Absolute Basophils 0.03 RBC Morphology See below Macrocytosis 2+ VBG Lactate Sodium 143 Potassium 4.1 Chloride 103 Carbon Dioxide 34.1 H Anion Gap 5.9 BUN 26 H Creatinine 0.51 L Estimated GFR/1.73 m2 >= 60.00 Glucose 101 Calcium 8.1 L Total Bilirubin 0.4 AST 63 H ALT 12 L Alkaline Phosphatase 161 H Creatine Kinase Troponin I < 0.05 NT-Pro-B Natriuret Pep 326 H Total Protein 6.9 Albumin 2.5 L Urine Color Urine Clarity Urine pH Ur Specific [place] Urine Protein Urine Ketones Urine Blood Urine Nitrite Urine Bilirubin Urine Urobilinogen Ur Leukocyte Esterase Urine RBC Urine WBC Ur Epithelial Cells Urine Crystals Urine Bacteria Urine Casts Urine Mucus Urine Other Ur Culture Indicated? Urine Glucose 04/10/20 04/10/20 04/10/20 12:40 12:50 13:33 WBC RBC Hgb Hct MCV MCH MCHC RDW Plt Count MPV Immature Gran % Neutrophils % Lymphocytes % Monocytes % Eosinophils % Basophils % Nucleated RBC % Absolute Neutrophils Absolute Lymphocytes Absolute Monocytes Absolute Eosinophils Absolute Basophils RBC Morphology Macrocytosis VBG Lactate 2.8 H* Sodium Potassium Chloride Carbon Dioxide Anion Gap BUN Creatinine Estimated GFR/1.73 m2 Glucose Calcium Total Bilirubin AST ALT Alkaline Phosphatase Creatine Kinase 28 Troponin I NT-Pro-B Natriuret Pep Total Protein Albumin Urine Color Yellow Urine Clarity Clear Urine pH 7.0 Ur Specific [place] 1.025 Urine Protein Negative Urine Ketones Negative Urine Blood Negative Urine Nitrite Negative Urine Bilirubin Negative Urine Urobilinogen 0.2 Ur Leukocyte Esterase Trace H Urine RBC 0-2 Urine WBC 5-10 Ur Epithelial Cells Moderate Urine Crystals Negative Urine Bacteria Few Urine Casts Negative Urine Mucus Trace Urine Other Few renal Ur Culture Indicated? Yes Urine Glucose Negative 04/10/20 04/10/20 15:30 19:45 WBC RBC Hgb Hct MCV MCH MCHC RDW Plt Count MPV Immature Gran % Neutrophils % Lymphocytes % Monocytes % Eosinophils % Basophils % Nucleated RBC % Absolute Neutrophils Absolute Lymphocytes Absolute Monocytes Absolute Eosinophils Absolute Basophils RBC Morphology Macrocytosis VBG Lactate 2.2 H* Sodium Potassium Chloride Carbon Dioxide Anion Gap BUN Creatinine Estimated GFR/1.73 m2 Glucose Calcium Total Bilirubin AST ALT Alkaline Phosphatase Creatine Kinase Troponin I < 0.05 NT-Pro-B Natriuret Pep Total Protein Albumin Urine Color Urine Clarity Urine pH Ur Specific [place] Urine Protein Urine Ketones Urine Blood Urine Nitrite Urine Bilirubin Urine Urobilinogen Ur Leukocyte Esterase Urine RBC Urine WBC Ur Epithelial Cells Urine Crystals Urine Bacteria Urine Casts Urine Mucus Urine Other Ur Culture Indicated? Urine Glucose
[2020-04-11 07:31] LABS: Abs Immature Grans 0.01 10^3/uL (0.0-0.06); Absolute Basophil Count 0.05 10^3/uL (0.0-0.2); Absolute Eosinophil Count 0.11 10^3/uL (0.0-0.7); Absolute Lymphocyte Count 1.87 10^3/uL (1.2-3.4); Absolute Monocyte Count 0.52 10^3/uL (0.1-0.8); Absolute Neutrophil Count 1.76 10^3/uL (1.2-6.7); Basophils % 1.2; Eosinophils % 2.5; HCT 38.2 % (36.0-46.0); HGB 12.3 g/dL (11.2-15.7); Immature Grans % 0.2; Lymphocytes % 43.3; MCH 35.2 pg (27.0-33.0); MCHC 32.2 % (32.0-36.0); MCV 109.5 fL (80-95); Neutrophils % 40.8; Nucleated RBC 0 %; Platelet Count 102 10^3/uL (130-400); RBC 3.49 10^6/uL (3.93-5.22); RDW-SD 60.8 fL; WBC 4.32 10^3/uL (4.4-10.8)
[2020-04-11 07:37] LABS: Anion Gap 2.9 mmol/L (3-11); BUN 18 mg/dL (7-18); CO2 34.1 mmol/L (21.0-32.0); CREATININE 0.44 mg/dL (0.55-1.02); Calcium 8.3 mg/dL (8.5-10.1); Chloride 108 mmol/L (98-107); Glucose 71 mg/dL (74-106); Magnesium 1.9 mg/dL (1.8-2.4); Potassium 4.4 mmol/L (3.5-5.1); Sodium 145 mmol/L (136-145)
--- NOTE | 2020-04-11 08:00 | DI.US_ITS ---
EXAM: US EXTREMITY VENOUS BI CLINICAL HISTORY: BLE edema, concern for DVT. TECHNIQUE: Bilateral lower extremity venous ultrasound performed using grayscale, color-flow, and sp ectral Doppler analysis. COMPARISON: No exams were available for comparison FINDINGS: The bilateral common femoral, femoral and popliteal veins demonstrate normal compressibility, augment ation, and color Doppler. The posterior tibial veins are patent. The saphenofemoral junctions are unr emarkable. There is no evidence of a Montes's cyst. The soft tissues are unremarkable. IMPRESSION: Right: Negative for DVT Left: Negative for DVT DATA REPOSITORY:
[2020-04-11 08:05] LABS: ALT 8 U/L (14-59); AST 63 U/L (15-37); Albumin 2.2 g/dL (3.4-5.0); Alkaline Phosphatase 152 U/L (46-116); Bilirubin, Direct 0.17 mg/dL (0.00-0.20); Bilirubin, Total 0.5 mg/dL (0.2-1.0); Total Protein 6.1 g/dL (6.4-8.2)
[2020-04-11 08:15] LABS: COVID-19 RT-PCR UVMMC Result Negative (Negative)
--- NOTE | 2020-04-11 08:19 | W.PM.PROGNOT ---
Date of Service Date of service: 04/11/20 Time of Service: 11:58 Assessment and Plan Assessment and plan (1) Encephalopathy acute: Status: Acute Assessment and plan: Ddx: toxic metabolic due to PNA vs breathrough seizures and post-ictal state vs other [employer] process She has definitely improved since yesterday. CT head ordered. EEG ordered. Neurology consulted. Continue empiric abx for pneumonia. (2) Bilateral pneumonia: Status: Acute Assessment and plan: Bibasilar, present on admission. COVID-19 negative. Continue empiric zosyn day 2. Obtain swallow eval as aspiration is suspected and is common with Parkinsonism. 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 DIRECTOR OF CONVENTION SERVICES is consulted to ensure no DIRECTOR OF CONVENTION SERVICES malignancy. Pelvic US pending. Also, pain has improved between yesterday to today without any specific intervention other than abx. (4) Vaginal bleeding: Status: Acute Assessment and plan: As above. Hold chemical DVT ppx. (5) Hypotension: Status: Resolved Assessment and plan: Will back off on IVF. Will likely be able to transfer out of the ICU later this afternoon. 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 Await EEG. CPK wnl. Await Neurology consult. (7) Dehydration: Status: Acute Assessment and plan: Back off of IVF. (8) DVT prophylaxis: Status: Acute Assessment and plan: Hold chemical DVT ppx due to vaginal bleeding (9) Discharge planning issues: Status: Acute Assessment and plan: DNR/DNI Will likely transfer out of the ICU later today if BPs remain stable (still hypotensive overnight). Subjective Subjective Interval history since last seen: More awake today and moving more, but still confused. Denies dizziness, chest pain, shortness of breath, nausea. Spontaneous vaginal bleeding -not in/around the goodwin. The patient does not think she has had it before. Lower abdominal discomfort is better, not excruciating. Afebrile. Nurses report a junky cough. 1 episode of apnea - desaturated on 2 L to 60's. Was hypotensive at that time. Intermittently hypotensive overnight; 130/53 this am. BPs better during the day today. Exam Narrative Exam Narrative: General: Elderly obese female, more awake today, but still clearly confused, A&Ox1, moving her extremities more, answering more questions, but still requires that they be asked several times before she understands what is being asked. She is following commands. HEENT: EOMI, MMM Cardiovascular: RRR, no m/r/g Lungs: Diminished breath sounds B, wet nonproductive cough. Gastrointestinal: soft, significantly less tender in LLQ, nondistended : has a goodwin Extremities: 2+ BLE edema, trace pedal pulses B Objective Last Vital Signs Temp 36.6 C 04/11/20 02:32 Pulse 85 04/11/20 02:32 Resp 13 04/11/20 02:32 BP 126/54 L 04/11/20 02:01 Pulse Ox 96 04/11/20 02:32 Laboratory Results - last 24 hr 04/10/20 04/10/20 04/10/20 12:40 12:40 12:40 WBC 5.24 RBC 3.74 L Hgb 13.0 Hct 40.8 MCV 109.1 H MCH 34.8 H MCHC 31.9 L RDW 14.9 H Plt Count 116 L MPV 10.7 Immature Gran % 0.6 Neutrophils % 51.2 Lymphocytes % 33.0 Monocytes % 13.5 Eosinophils % 1.1 Basophils % 0.6 Nucleated RBC % 0 Absolute Neutrophils 2.68 Absolute Lymphocytes 1.73 Absolute Monocytes 0.71 Absolute Eosinophils 0.06 Absolute Basophils 0.03 RBC Morphology See below Macrocytosis 2+ VBG Lactate Sodium 143 Potassium 4.1 Chloride 103 Carbon Dioxide 34.1 H Anion Gap 5.9 BUN 26 H Creatinine 0.51 L Estimated GFR/1.73 m2 >= 60.00 Glucose 101 Calcium 8.1 L Magnesium Total Bilirubin 0.4 Conjugated Bilirubin AST 63 H ALT 12 L Alkaline Phosphatase 161 H Creatine Kinase Troponin I < 0.05 NT-Pro-B Natriuret Pep 326 H Total Protein 6.9 Albumin 2.5 L Urine Color Urine Clarity Urine pH Ur Specific [place] Urine Protein Urine Ketones Urine Blood Urine Nitrite Urine Bilirubin Urine Urobilinogen Ur Leukocyte Esterase Urine RBC Urine WBC Ur Epithelial Cells Urine Crystals Urine Bacteria Urine Casts Urine Mucus Urine Other Ur Culture Indicated? Urine Glucose COVID-19 PCR Nasopharyn COVID-19 PCR Ref Test Perform Site 04/10/20 04/10/20 04/10/20 12:40 12:50 13:03 WBC RBC Hgb Hct MCV MCH MCHC RDW Plt Count MPV Immature Gran % Neutrophils % Lymphocytes % Monocytes % Eosinophils % Basophils % Nucleated RBC % Absolute Neutrophils Absolute Lymphocytes Absolute Monocytes Absolute Eosinophils Absolute Basophils RBC Morphology Macrocytosis VBG Lactate Sodium Potassium Chloride Carbon Dioxide Anion Gap BUN Creatinine Estimated GFR/1.73 m2 Glucose Calcium Magnesium Total Bilirubin Conjugated Bilirubin AST ALT Alkaline Phosphatase Creatine Kinase 28 Troponin I NT-Pro-B Natriuret Pep Total Protein Albumin Urine Color Yellow Urine Clarity Clear Urine pH 7.0 Ur Specific [place] 1.025 Urine Protein Negative Urine Ketones Negative Urine Blood Negative Urine Nitrite Negative Urine Bilirubin Negative Urine Urobilinogen 0.2 Ur Leukocyte Esterase Trace H Urine RBC 0-2 Urine WBC 5-10 Ur Epithelial Cells Moderate Urine Crystals Negative Urine Bacteria Few Urine Casts Negative Urine Mucus Trace Urine Other Few renal Ur Culture Indicated? Yes Urine Glucose Negative COVID-19 PCR Negative Nasopharyn COVID-19 PCR Not Applicable Ref Test Perform Site [facility] 04/10/20 04/10/20 04/10/20 13:33 15:30 19:45 WBC RBC Hgb Hct MCV MCH MCHC RDW Plt Count MPV Immature Gran % Neutrophils % Lymphocytes % Monocytes % Eosinophils % Basophils % Nucleated RBC % Absolute Neutrophils Absolute Lymphocytes Absolute Monocytes Absolute Eosinophils Absolute Basophils RBC Morphology Macrocytosis VBG Lactate 2.8 H* 2.2 H* Sodium Potassium Chloride Carbon Dioxide Anion Gap BUN Creatinine Estimated GFR/1.73 m2 Glucose Calcium Magnesium Total Bilirubin Conjugated Bilirubin AST ALT Alkaline Phosphatase Creatine Kinase Troponin I < 0.05 NT-Pro-B Natriuret Pep Total Protein Albumin Urine Color Urine Clarity Urine pH Ur Specific [place] Urine Protein Urine Ketones Urine Blood Urine Nitrite Urine Bilirubin Urine Urobilinogen Ur Leukocyte Esterase Urine RBC Urine WBC Ur Epithelial Cells Urine Crystals Urine Bacteria Urine Casts Urine Mucus Urine Other Ur Culture Indicated? Urine Glucose COVID-19 PCR Nasopharyn COVID-19 PCR Ref Test Perform Site 04/11/20 04/11/20 06:30 06:30 WBC 4.32 L RBC 3.49 L Hgb 12.3 Hct 38.2 MCV 109.5 H MCH 35.2 H MCHC 32.2 RDW 15.0 H Plt Count 102 L MPV 11.0 Immature Gran % 0.2 Neutrophils % 40.8 Lymphocytes % 43.3 Monocytes % 12.0 Eosinophils % 2.5 Basophils % 1.2 Nucleated RBC % 0 Absolute Neutrophils 1.76 Absolute Lymphocytes 1.87 Absolute Monocytes 0.52 Absolute Eosinophils 0.11 Absolute Basophils 0.05 RBC Morphology Macrocytosis VBG Lactate Sodium 145 Potassium 4.4 Chloride 108 H Carbon Dioxide 34.1 H Anion Gap 2.9 L BUN 18 D Creatinine 0.44 L Estimated GFR/1.73 m2 >= 60.00 Glucose 71 L Calcium 8.3 L Magnesium 1.9 Total Bilirubin 0.5 Conjugated Bilirubin 0.17 AST 63 H ALT 8 L Alkaline Phosphatase 152 H Creatine Kinase Troponin I NT-Pro-B Natriuret Pep Total Protein 6.1 L Albumin 2.2 L Urine Color Urine Clarity Urine pH Ur Specific [place] Urine Protein Urine Ketones Urine Blood Urine Nitrite Urine Bilirubin Urine Urobilinogen Ur Leukocyte Esterase Urine RBC Urine WBC Ur Epithelial Cells Urine Crystals Urine Bacteria Urine Casts Urine Mucus Urine Other Ur Culture Indicated? Urine Glucose COVID-19 PCR Nasopharyn COVID-19 PCR Ref Test Perform Site Objective Narrative Objective Narrative: Venous dopplers BLE's: Right: Negative for DVT Left: Negative for DVT
[2020-04-11 08:43] LABS: Lactate 2.1 mmol/L (0.6-1.4)
[2020-04-11] MEDS: Pantoprazole 40 MG VIAL IVP (09:14)
[2020-04-11] MEDS: Nystatin POWDER 15 GM JAR TP ×2 (09:14→21:21)
[2020-04-11] MEDS: Carbidopa 25/Levodopa 100 TAB PO ×3 (09:15→21:19)
[2020-04-11] MEDS: DEXTROSE 5%-0.9% SALINE 1,000 ML 100 ML IV (10:32)
[2020-04-11] MEDS: Acetaminophen 325 MG TAB 650 MG PO ×2 (11:04→21:19)
--- NOTE | 2020-04-11 15:06 | PHA.REVIEW ---
Pharmacy Admission Review - Admission Clinical Review (Last Updated 04/11/20 @ 07:28 by Darby Espinoza MD) Vaginal bleeding (Acute) Abdominal pain (Acute) Dehydration (Acute) Discharge planning issues (Acute) DVT prophylaxis (Acute) Bilateral pneumonia (Acute) Encephalopathy acute (Acute) ethosuximide Allergy (Intermediate, Unverified 04/10/20 15:49) lactose Adverse Reaction (Intermediate, Unverified 04/10/20 15:49) Intolerant Height 5 ft 7 in Weight 94.4 kg - Renal Dosing Renal Dosing: BUN 18 mg/dL (7-18) D 04/11/20 06:30 Creatinine 0.44 mg/dL (0.55-1.02) L 04/11/20 06:30 Medications needing adjustments: Reviewed (Crcl over 80 mL/min using adjusted body weight, current meds okay.) - Anticoagulation Anticoagulation: Hgb 12.3 g/dL (11.2-15.7) 04/11/20 06:30 Hct 38.2 % (36.0-46.0) 04/11/20 06:30 Plt Count 102 10^3/uL (130-400) L 04/11/20 06:30 Creatinine 0.44 mg/dL (0.55-1.02) L 04/11/20 06:30 DVT Prohphylaxis: Reviewed Medications: Heparin (Put on hold due to vaginal bleeding per progress note.) Therapeutic Anticoagulation: N/A - Opiate Usage Evaluate Pain Scale/Pains Meds: N/A - Relevant Labs Sodium 145 mmol/L (136-145) 04/11/20 06:30 Potassium 4.4 mmol/L (3.5-5.1) 04/11/20 06:30 Chloride 108 mmol/L (98-107) H 04/11/20 06:30 Magnesium 1.9 mg/dL (1.8-2.4) 04/11/20 06:30 Electrolytes, C-Reactive P, ESR: Reviewed - DM Control DM Control: Glucose 71 mg/dL (74-106) L 04/11/20 06:30 Insulin Dosing: N/A - Heart Failure/NC Heart Failure/NC: Troponin I < 0.05 ng/mL (<0.06) 04/10/20 15:30 NT-Pro-B Natriuret Pep 326 pg/mL (<300) H 04/10/20 12:40 EF%, CLAYTON's, B-Blockers, Diuretics: Reviewed - BP Control BP Control: Blood Pressure [Left Arm] 140/56 Blood Pressure [Left Arm] 131/51 Blood Pressure 140/56 Blood Pressure 140/56 Blood Pressure 107/67 Blood Pressure 107/67 Blood Pressure 82/55 Blood Pressure 117/52 Blood Pressure 116/66 Blood Pressure 105/55 If elevated: N/A - Qtc Review If Elevated: N/A (QTc 418 on admission) - IV to PO Switch IV Medications: Reviewed - Home Meds Home Med List reviewed: Reviewed (Primidone may increase the metabolism of atorvastatin; its recommended to consider alternatives to avoid therapeutic failure of atorvastatin. Valproic acid may diminish the metabolism of primidone and its active metabolite (phenobarbital). Separate admin of multivitamin and carbidopa-levodopa.) Relevent Home Meds Not ordered & why?: Aspirin, atorvastatin, cholecalciferol, divalproex(has IV valproate sodium ordered), folic acid, furosemide, multivitamin, lactase, lactobacillus, magnesium oxide, omeprazole (has pantoprazole ordered), primidone (has IV phenobarbital ordered), propranolol - Current meds Current Medication Order Review: Intervened (Discontinued DI meds (were already given) and duplicate med orders.) - Comments Comments/Follow Ups: Watch BP, plts, labs, culture results, and for med changes (IV to PO, resumption of home meds, possible resumption or d/c of heparin pending status) Antibiotic Activity - Pharmacy Antibiotic Review Pharmacy Antibiotic Activity: Reviewed, no change (Zosyn continued (day 2). BC no growth @24hours, urine culture growing gram negative rods and gram positive jr.)
--- NOTE | 2020-04-11 15:49 | W.NEUROCONSU ---
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 Rose is an 84-year-old, left-handed woman admitted for altered mental status, lethargy, and cough complicated by hypotension and oxygen desaturation found to have bilateral pneumonia and now with vaginal bleeding. Her lethargy has improved, however, she continues to have altered mental status (I would expect her to be oriented to place, but not necessarily to month/year). This may be secondary to infection and she has made significant improvement. However, if altered mental status continues, I think it would be reasonable to get an EEG to ensure that persistent altered mental status is not due to seizure activity. I would recommend switching her IV seizure medications back to her oral outpatient doses as soon as it is safe to do so. Otherwise, her parkinsonism and essential tremor appear to be at baseline. Continue her outpatient Sinemet dose as you are doing. Please call with any further questions or concerns. History of Present Illness History of Present Illness Chief Complaint: AMS Narrative: Handedness: LEFT HPI: Ms. Rose is an 84-year-old woman whom I know quite well as I manage her medically intractable generalized epilepsy, essential tremor, and Parkinson's disease. Was brought to the [facility] emergency room yesterday 04/10/2020 with a several day history of increased lethargy, altered mental status, and a progressive cough. She was no longer participating or feeding herself. In the emergency room, laboratory work-up was essentially unremarkable. She has stable elevated LFTs. UA showed a specific gravity of 1.025, trace leukoesterase, and 5-10 white blood cells. Culture pending. She had a chest x-ray which unremarkable. In the emergency room she became hypotensive into the 70s. This was treated with IV fluids. He was also having abdominal pain for which she underwent a CT of the abdomen and pelvis which showed questionable mesenteric panniculitis versus acute enteritis. She was also noted to have likely left lower lung pneumonia. She was subsequently admitted and made n.p.o. because of the GI findings. It seems like her Sinemet was continued, however, her seizure medications were changed to IV by the pharmacy. As an outpatient she takes Depakote ER 1000 mg twice daily brand name and primidone 250 mg a.m. and 500 mg p.m. She is currently on IV Depakote 500 mg every 6 hours and IV phenobarbital 50 mg every 12 hours. She has not had any witnessed seizure activity, however, her breakthrough seizures are quite subtle lasting seconds only. Overnight, she again was hypotensive and had an episode of desaturation to the 60s so that she is now on supplemental oxygen. She was treated with empiric antibiotics for pneumonia. Her lethargy has significantly improved, however, she remains slightly confused. She had a CT head performed yesterday which I was able to review personally and was unremarkable. She is now having vaginal bleeding which is being worked up. 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 KERR S/P RIGHT EYE EXTRACTION 10/05/13; DR. KERR Physical deconditioning Postmenopausal bleeding (04/24/91) Tension type headache Urgency of urination Vaginal spotting (01/26/16) Surgical History Cholecystectomy Extraction of cataract 09/21/13; LEFT 10/05/13; RIGHT H/O tubal ligation Family History Mother Essential hypertension Personal history of malignant neoplasm BREAST Heart disease Stroke Father Personal history of malignant neoplasm BONE Sister Personal history of malignant neoplasm BREAST Heart disease Cirrhosis, alcoholic Transplanted heart Son Arthritis Social History Smoking/Tobacco Use Status: Never Smoking risk assessment performed?: Yes Alcohol Intake: never Drug use: Never Substance use type: does not use Housing: [facility] Do you feel safe at home: Yes Do you feel safe in your relationship?: Yes Additional Social history: She lives at the [facility]. She has 4 grown children. She has never driven. She does not smoke, drink ETOH, or use illicit drugs. Visit Medication and Allergies Active Medications Generic Name Dose Route Start Last Admin Trade Name Freq PRN Reason Stop Dose Admin Acetaminophen 650 mg 04/10/20 14:57 04/11/20 11:04 Acetaminophen 325 Mg Tab PO 650 mg Q4H PRN PRN Administration Carbidopa/Levodopa 2 tab 04/10/20 20:00 04/11/20 13:31 Carbidopa 25/Levodopa 100 Tab PO 2 tab TID WILLIAM Administration Dimethicone/Zinc Oxide 0 gm 04/10/20 17:02 [place]one Protect Cream 142 Gm Tube TP PRN PRN Docusate Sodium 100 mg 04/10/20 14:57 Docusate Sodium 100 Mg Cap PO TID PRN PRN Heparin Sodium (Porcine) 5,000 units 04/10/20 18:00 04/11/20 03:05 Heparin 5,000 Units/Ml Vial SC 5,000 units Q8H WILLIAM Administration Valproate Sodium 500 mg/ 55 mls @ 55 mls/hr 04/10/20 18:00 04/11/20 13:32 Sodium Chloride IVPB Infused Q6H WILLIAM Infusion Piperacillin Sod/Tazobactam 50 mls @ 100 mls/hr 04/10/20 20:00 04/11/20 14:42 Sod 3.375 gm/ Sodium Chloride IVPB 100 mls/hr Q6H WILLIAM Administration Protocol Dextrose/Sodium Chloride 1,000 mls @ 75 mls/hr 04/11/20 08:15 04/11/20 10:32 Dextrose 5%-Ns IV 100 mls/hr INFUSION WILLIAM Administration IV Miscellaneous Supplies 1 each 04/10/20 13:00 Iv Access IV DIRECTED WILLIAM Nystatin 0 gm 04/10/20 20:00 11/17/20 09:14 Nystatin Powder 15 Gm Jar TP 1 applic BID WILLIAM Administration Pantoprazole Sodium 40 mg 04/11/20 08:30 04/11/20 09:14 Pantoprazole 40 Mg Vial IVP 40 mg DAILY WILLIAM Administration Phenobarbital Sodium 50 mg 04/10/20 18:00 04/11/20 06:50 Phenobarbital 130 Mg/Ml Vial IVP 50 mg Q12H WILLIAM Administration Polyethylene Glycol 17 gm 04/10/20 14:57 Polyethylene Glycol 3350 17 Gm Packet PO DAILY PRN PRN Constipation Sodium Chloride 0 ml 04/10/20 12:51 04/10/20 23:45 Normal Saline Flush 10 Ml Syr IVP 20 ml PRN PRN Administration Allergies ethosuximide Allergy (Intermediate, Unverified 04/10/20 15:49) lactose Adverse Reaction (Intermediate, Unverified 04/10/20 15:49) Intolerant Exam Narrative Exam Narrative: Physical Exam: Constitutional: Patient of apparent stated age, well nourished, well developed, no acute distress Neck: Supple, no meningismus CV: RRR, S1, S2, no murmur Resp: CTAB Abd: Soft, nontender to palpation for me - though complaining of pain earlier in visit; nondistended Extrem: trace bilateral LE edema Neuro: MS/Language/Speech: Alert, oriented to self only - did not know location, month, year; clear language (fluency and comprehension), no dysarthria CN: PERRL, EOMI, visual almaguer full, trigeminal sensation intact, no facial asymmetry, hearing intact, palate elevates symmetrically, tongue protrudes midline, SCM and trap strength intact Motor: Normal bulk and tone. No cogwheel rigidity. FMM reduced bilaterally, no pronator drift. 5/5 strength in bilateral upper extremities with no movement in the LE (this is her baseline). Mild-moderate bilateral UE postural tremor, stable with activity. Sensation: Intact to light touch throughout Reflexes: hyporeflexic throughout, downgoing neutral bilaterally; Coordination: Finger to nose performed with mild-moderate bilateral UE dysmetria Gait: she is wheelchair bound at baseline Results Last Vital Signs Temp 36.6 C 04/11/20 12:00 Pulse 68 04/11/20 14:27 Resp 15 11/17/20 14:27 BP 140/56 L 11/17/20 14:27 Pulse Ox 98 04/11/20 14:27 Labs Result diagrams: 04/11/20 06:30 04/11/20 06:30 Labs: Laboratory Results - last 24 hr 04/10/20 04/10/20 04/10/20 12:40 13:03 15:30 WBC RBC Hgb Hct MCV MCH MCHC RDW Plt Count MPV Immature Gran % Neutrophils % Lymphocytes % Monocytes % Eosinophils % Basophils % Nucleated RBC % Absolute Neutrophils Absolute Lymphocytes Absolute Monocytes Absolute Eosinophils Absolute Basophils VBG Lactate Sodium Potassium Chloride Carbon Dioxide Anion Gap BUN Creatinine Estimated GFR/1.73 m2 Glucose Calcium Magnesium Total Bilirubin Conjugated Bilirubin AST ALT Alkaline Phosphatase Creatine Kinase 28 Troponin I < 0.05 Total Protein Albumin COVID-19 PCR Negative Nasopharyn COVID-19 PCR Not Applicable Ref Test Perform Site [facility] 04/10/20 04/11/20 04/11/20 19:45 06:30 06:30 WBC 4.32 L RBC 3.49 L Hgb 12.3 Hct 38.2 MCV 109.5 H MCH 35.2 H MCHC 32.2 RDW 15.0 H Plt Count 102 L MPV 11.0 Immature Gran % 0.2 Neutrophils % 40.8 Lymphocytes % 43.3 Monocytes % 12.0 Eosinophils % 2.5 Basophils % 1.2 Nucleated RBC % 0 Absolute Neutrophils 1.76 Absolute Lymphocytes 1.87 Absolute Monocytes 0.52 Absolute Eosinophils 0.11 Absolute Basophils 0.05 VBG Lactate 2.2 H* Sodium 145 Potassium 4.4 Chloride 108 H Carbon Dioxide 34.1 H Anion Gap 2.9 L BUN 18 D Creatinine 0.44 L Estimated GFR/1.73 m2 >= 60.00 Glucose 71 L Calcium 8.3 L Magnesium 1.9 Total Bilirubin 0.5 Conjugated Bilirubin 0.17 AST 63 H ALT 8 L Alkaline Phosphatase 152 H Creatine Kinase Troponin I Total Protein 6.1 L Albumin 2.2 L COVID-19 PCR Nasopharyn COVID-19 PCR Ref Test Perform Site 04/11/20 08:32 WBC RBC Hgb Hct MCV MCH MCHC RDW Plt Count MPV Immature Gran % Neutrophils % Lymphocytes % Monocytes % Eosinophils % Basophils % Nucleated RBC % Absolute Neutrophils Absolute Lymphocytes Absolute Monocytes Absolute Eosinophils Absolute Basophils VBG Lactate 2.1 H* Sodium Potassium Chloride Carbon Dioxide Anion Gap BUN Creatinine Estimated GFR/1.73 m2 Glucose Calcium Magnesium Total Bilirubin Conjugated Bilirubin AST ALT Alkaline Phosphatase Creatine Kinase Troponin I Total Protein Albumin COVID-19 PCR Nasopharyn COVID-19 PCR Ref Test Perform Site
[2020-04-11] MEDS: Primidone 250 MG TAB 500 MG PO (18:49)
[2020-04-11] MEDS: Divalproex Sodium 500 MG TAB.ER.24H 1000 MG PO (21:19)
[2020-04-11] MEDS: Normal Saline Flush 10 ML SYR IVP (21:21)
[2020-04-12] VITALS (80 sets, daily range): BP systolic 85–135; BP diastolic 36–76; PULSE 68–158; RESP 10–25; TEMP 36.1–36.6; O2SAT 87–92
[2020-04-12 00:52] LABS: C Diff PCR Negative (Negative)
[2020-04-12] MEDS: PIPERACILLIN/TAZO 3.375 GM in Normal Saline 50 ML IVPB ×4 (02:43→19:06)
--- NOTE | 2020-04-12 06:44 | W.PALLCONSUL ---
Date of service: 04/11/20 Time of Service: 18:44 History of Present Illness Narrative: Melissa is an 84-year-old woman who has lived at the [facility] for approximately 5 years. I know Melissa from 15 years prior to going to the [facility] and then for 4 out of the 5 years she was at the [facility]. She is a wonderful woman with a great family. She has persistent spinal stenosis and ambulation difficulties. She was wheelchair-bound when I last saw her. Prior to being transported to [facility], she was under the care of Dr. Mcgregor and also Dr. Car. She has had lifelong epilepsy, parkinsonism, hypertension, mesenteric panniculitis, UTIs, and most recently vaginal bleeding. I am seeing her in the ICU. She looks like she remembers who I am although she cannot say my name. She cannot tell me where she is. She says she is anxious to go home but cannot name that the [facility] is her home. She smiles brightly when we talk about her children. She cannot tell me why she is in the ICU. She laughs and giggles. She definitely enjoys the company of her present nurse. Consults Consult date: 04/11/20 Requesting physician: Noelle Nortno Assessment and Plan Assessment and plan (1) Vaginal bleeding: Status: Acute (2) Hypotension: Status: Resolved (3) Bilateral pneumonia: Status: Acute (4) Mesenteric panniculitis: Status: Suspected (5) Parkinsonism: Status: Acute (6) Physical deconditioning: Status: Acute (7) Altered mental status: Status: Acute Qualifiers: Altered mental status type: delirium Qualified Code(s): R41.0 - Disorientation, unspecified (8) Complicated UTI (urinary tract infection): Status: Acute (9) Palliative care patient: Status: Acute Assessment and plan: I am struck by Farshad presentation today. I was not expecting her to be is confused a few days after coming to the hospital. She was generally quite clear even though she tended to do well on problems. Vaginal bleeding?ultrasound does not show any immediate cause She is on antibiotics for pneumonia and possible mesenteric panniculitis Yesterday she had a difficult time with agitation and anxiety. Anxiety has always been a big problem for Melissa. I would recommend medicating for this while she is hospitalized. I think that this will improve her comfort. I would recommend mirtazapine 7.5 mg at night to help with sleep, and anxiety. A low dose of trazodone, perhaps 12.5 mg morning and noon may also help with her anxiety. She tends to need small doses of medications to accomplish the goal. I will continue to follow Melissa. 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 KERR S/P RIGHT EYE EXTRACTION 10/05/13; DR. KERR Physical deconditioning Postmenopausal bleeding (04/24/91) Tension type headache Urgency of urination Vaginal spotting (01/26/16) Surgical History Cholecystectomy Extraction of cataract 09/21/13; LEFT 10/05/13; RIGHT H/O tubal ligation Family History Mother Essential hypertension Personal history of malignant neoplasm BREAST Heart disease Stroke Father Personal history of malignant neoplasm BONE Sister Personal history of malignant neoplasm BREAST Heart disease Cirrhosis, alcoholic Transplanted heart Son Arthritis Social History Smoking/Tobacco Use Status: Never Smoking risk assessment performed?: Yes Alcohol Intake: never Drug use: Never Substance use type: does not use Housing: snf Do you feel safe at home: Yes Do you feel safe in your relationship?: Yes Additional Social history: She lives at the [facility]. She has 4 grown children. She has never driven. She does not smoke, drink ETOH, or use illicit drugs. Exam Narrative Exam Narrative: Melissa is lying in bed but is able to help to sit up. She smiles brightly much of the time. Her heart is regular. There is a systolic murmur. She is able to breathe in and out and cooperate with the exam. Her lung sounds were diminished. Her abdomen was mildly tender. She did have some edema more in the right leg than in the left. I did not do a exam Laboratory Tests 04/11/20 04/11/20 04/11/20 06:30 06:30 08:32 WBC RBC 3.49 L Hct 38.2 VBG Lactate 2.1 H* Creatinine Magnesium AST Alkaline Phosphatase 152 H Albumin 2.2 L 04/12/20 04/12/20 06:20 06:20 WBC 5.49 RBC Hct VBG Lactate Creatinine 0.50 L Magnesium 1.6 L AST 65 H Alkaline Phosphatase Albumin Abdominal CT xam(s) a CT:CT abdomen w EXAM: CT ABDOMEN W CLINICAL HISTORY: Abd pain, TECHNIQUE: Imaging Protocol: Axial computed tomography images with coronal and sagittal reformatted images were created and reviewed CONTRAST MATERIAL: Intravenous: Omnipaque 350 Contrast volume:100 mL Oral: No COMPARISON: CT CT CHEST PE ABD PELVIS W from 05/07/2019 FINDINGS: The examination is limited due to patient motion artifact. ABDOMEN: Lung Bases: There are bilateral basilar consolidations. There does appear to be a small left pleural effusion. Liver: Normal density. No measurable mass. Portal, Superior Mesenteric, and Splenic Veins: Unremarkable. Gallbladder and Biliary Tract: Status post cholecystectomy. No biliary ductal dilatation. Pancreas: Normal density, no abnormal calcifications or inflammatory process. Spleen: Normal. Adrenals: No masses seen. Kidneys: Normal size, contour and axis. No radiodense stones or obstructive uropathy. No masses seen. Abdominal Aorta: Abdominal portion non-dilated. Atherosclerosis. Bowel: No obstruction or bowel wall thickening. There is diverticulosis of the colon but no evidence of acute diverticulitis. Peritoneal Cavity: No ascites. Stable persistent increased attenuation in the mesentery. Lymph Nodes: Within normal limits. Bones: There is a hemangioma in the T11 vertebral body. Degenerative changes are seen in the spine. Soft Tissues: Unremarkable. IMPRESSION: 1. Mild generalized haziness of the mesenteric root. This is similar compared to the prior examination and may represent mesenteric panniculitis but an acute enteritis cannot be excluded. 2. Bilateral basilar infiltrates and a small left pleural effusion which may represent atelectasis or pneumonia. Results Last Vital Signs Temp 97.9 F 04/12/20 03:57 Pulse 85 04/12/20 03:57 Resp 13 04/12/20 03:57 BP 99/43 L 04/12/20 02:01 Pulse Ox 92 04/12/20 00:00 Labs Result diagrams: 04/12/20 06:20 04/12/20 06:20 Labs: Laboratory Results - last 24 hr 04/10/20 04/11/20 04/11/20 13:03 06:30 06:30 WBC 4.32 L RBC 3.49 L Hgb 12.3 Hct 38.2 MCV 109.5 H MCH 35.2 H MCHC 32.2 RDW 15.0 H Plt Count 102 L MPV 11.0 Immature Gran % 0.2 Neutrophils % 40.8 Lymphocytes % 43.3 Monocytes % 12.0 Eosinophils % 2.5 Basophils % 1.2 Nucleated RBC % 0 Absolute Neutrophils 1.76 Absolute Lymphocytes 1.87 Absolute Monocytes 0.52 Absolute Eosinophils 0.11 Absolute Basophils 0.05 VBG Lactate Sodium 145 Potassium 4.4 Chloride 108 H Carbon Dioxide 34.1 H Anion Gap 2.9 L BUN 18 D Creatinine 0.44 L Estimated GFR/1.73 m2 >= 60.00 Glucose 71 L Calcium 8.3 L Magnesium 1.9 Total Bilirubin 0.5 Conjugated Bilirubin 0.17 AST 63 H ALT 8 L Alkaline Phosphatase 152 H Total Protein 6.1 L Albumin 2.2 L Stl C.difficile Tox PCR COVID-19 PCR Negative Nasopharyn COVID-19 PCR Not Applicable Ref Test Perform Site [facility] 04/11/20 04/11/20 08:32 23:27 WBC RBC Hgb Hct MCV MCH MCHC RDW Plt Count MPV Immature Gran % Neutrophils % Lymphocytes % Monocytes % Eosinophils % Basophils % Nucleated RBC % Absolute Neutrophils Absolute Lymphocytes Absolute Monocytes Absolute Eosinophils Absolute Basophils VBG Lactate 2.1 H* Sodium Potassium Chloride Carbon Dioxide Anion Gap BUN Creatinine Estimated GFR/1.73 m2 Glucose Calcium Magnesium Total Bilirubin Conjugated Bilirubin AST ALT Alkaline Phosphatase Total Protein Albumin Stl C.difficile Tox PCR Negative COVID-19 PCR Nasopharyn COVID-19 PCR Ref Test Perform Site
[2020-04-12 07:14] LABS: Abs Immature Grans 0.01 10^3/uL (0.0-0.06); Absolute Basophil Count 0.07 10^3/uL (0.0-0.2); Absolute Eosinophil Count 0.15 10^3/uL (0.0-0.7); Absolute Lymphocyte Count 1.76 10^3/uL (1.2-3.4); Absolute Monocyte Count 0.76 10^3/uL (0.1-0.8); Absolute Neutrophil Count 2.74 10^3/uL (1.2-6.7); Basophils % 1.3; Eosinophils % 2.7; HCT 38.2 % (36.0-46.0); HGB 12.3 g/dL (11.2-15.7); Immature Grans % 0.2; Lymphocytes % 32.1; MCH 34.4 pg (27.0-33.0); MCHC 32.2 % (32.0-36.0); MCV 106.7 fL (80-95); MPV 10.7 fL (8.0-11.0); Monocytes % 13.8; Neutrophils % 49.9; Nucleated RBC 0 %; Platelet Count 121 10^3/uL (130-400); RBC 3.58 10^6/uL (3.93-5.22); RDW 14.6 % (11.7-14.6); RDW-SD 57.6 fL; WBC 5.49 10^3/uL (4.4-10.8)
[2020-04-12 07:21] LABS: ALT 10 U/L (14-59); AST 65 U/L (15-37); Albumin 2.2 g/dL (3.4-5.0); Alkaline Phosphatase 172 U/L (46-116); Anion Gap 8.3 mmol/L (3-11); BUN 13 mg/dL (7-18); Bilirubin, Direct 0.21 mg/dL (0.00-0.20); Bilirubin, Total 0.6 mg/dL (0.2-1.0); CO2 31.7 mmol/L (21.0-32.0); Calcium 8.4 mg/dL (8.5-10.1); Chloride 104 mmol/L (98-107); Glucose 82 mg/dL (74-106); Magnesium 1.6 mg/dL (1.8-2.4); Potassium 3.6 mmol/L (3.5-5.1); Sodium 144 mmol/L (136-145); Total Protein 6.2 g/dL (6.4-8.2)
[2020-04-12] MEDS: DEXTROSE 5%-0.9% SALINE 1,000 ML 100 ML IV (07:23)
[2020-04-12] MEDS: Carbidopa 25/Levodopa 100 TAB PO ×3 (07:53→19:07)
[2020-04-12] MEDS: Nystatin POWDER 15 GM JAR TP ×2 (07:54→19:08)
[2020-04-12] MEDS: Pantoprazole 40 MG VIAL IVP (07:54)
[2020-04-12] MEDS: Divalproex Sodium 500 MG TAB.ER.24H 1000 MG PO ×2 (07:54→19:07)
--- NOTE | 2020-04-12 08:03 | W.GYNCONSULT ---
Date of service: 04/11/20 Time of Service: 17:00 Assessment and Plan Assessment and plan (1) Vaginal bleeding: Status: Acute Assessment and plan: Secondary to external vulvar tissue changes. No evidence that she has a thickened endometrial stripe or adnexal pathology. It is unlikely that the bleeding is result uterine or adnexal etiology (2) Lichen sclerosus et atrophicus: Status: Acute Assessment and plan: Her lichen sclerosus is advanced. She has distortion of her labial architecture and while this can not be reversed it can be treated to decrease the friability of the tissue. I recommend clobetasol 0.05% ointment to be applied to the vulva daily. The ointment is petroleum-based and with staying less than the cream. A tiny amount can be rubbed into the tissue around her urethra and vaginal orifice. I see no evidence of squamous cell cancer lesions. I recommend that the Clobetasol treatment be continued back at the [facility]. History of Present Illness History of Present Illness Chief Complaint: Postmenopausal bleeding Narrative: Ms Rose is an 84 y.o. female who is a resident of the [facility] [place] who has a PMHx of parkinsonism, intractable epilepsy, hypertension, depression who presented to [facility] ED 04/10/20 with a report of declining mental status over several days. Her initial ED workup was essentially negative for a UTI or pneumonia, but while the studies were pending, she received empiric antibiotics. She did appear slightly dehydrated by labs. However, while in the ED, the patient became acutely hypotensive to SBPs in he 70s. This improved quickly with IVF bolus. Additionally, on the exam the patient was found to have LLQ pain. The patient could not quantify the chronology of the pain. ROS were negative. She was admitted to the hospitalist service and underwent a CT of the abdomen and pelvis which showed probable mesenteric panniculitis. She was also noted to have likely left lower lung pneumonia and has been receiving IV Zosyn. At the time of admission patient was noted to have a small amount of bright red blood on the hospital pad. It was evidence of other bleeding in the area of the perineum with probable vaginal origin. I was asked to consult by Dr. Norton. 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 KERR S/P RIGHT EYE EXTRACTION 10/05/13; DR. KERR Physical deconditioning Postmenopausal bleeding (04/24/91) Tension type headache Urgency of urination Vaginal spotting (01/26/16) Surgical History Cholecystectomy Extraction of cataract 09/21/13; LEFT 10/05/13; RIGHT H/O tubal ligation Family History Mother Essential hypertension Personal history of malignant neoplasm BREAST Heart disease Stroke Father Personal history of malignant neoplasm BONE Sister Personal history of malignant neoplasm BREAST Heart disease Cirrhosis, alcoholic Transplanted heart Son Arthritis Social History Smoking/Tobacco Use Status: Never Smoking risk assessment performed?: Yes Alcohol Intake: never Drug use: Never Substance use type: does not use Housing: senior care Do you feel safe at home: Yes Do you feel safe in your relationship?: Yes Additional Social history: She lives at the [facility]. She has 4 grown children. She has never driven. She does not smoke, drink ETOH, or use illicit drugs. Exam Narrative Exam Narrative: Patient is sitting semi-Fowlers in bed watching TV. She is able to engage and answer questions. Currently no complaints of abdominal pain. Const General: cooperative and ill appearing Nutritional Appearance: obese Orientation: alert and awake Resp Effort & Inspection: normal respiratory effort GI Inspection: edema (Distributed over the mons pubis and labia bilaterally) and large pannus Palpation: soft Other: With the assistance of the RN I was able to examine the vulva. Patient has loss of labial architecture is no evidence of a clitoral auguste or labia majora. She has 2 orifices the urethral orifice is approximately 1 cm and admits a Porter catheter draining clear cristiana urine below the urethral orifice is lichenified thin tissue. Beneath that bridge of tissue is a vaginal orifice which is patent and admits 1 finger. Exam there is no evidence of blood in the vagina . The perivaginal and periurethral tissue shows contact bleeding, is not friable. There is lichenification of the perineum. Of brown stool present at the anus. No evidence of excoriations or ulcers of the vulva. Skin General skin exam: other (As noted on the exam) Extrem General: edema (SCDs in place) Laterality: bilateral Psych Appearance: grossly normal Speech and Movement: delayed speech Mood: congruent mood Affect: blunted Results Last Vital Signs Temp 97.9 F 04/12/20 03:57 Pulse 85 04/12/20 03:57 Resp 13 04/12/20 03:57 BP 99/43 L 04/12/20 02:01 Pulse Ox 92 04/12/20 00:00 Labs Result diagrams: 04/12/20 06:20 04/12/20 06:20 Labs: Laboratory Results - last 24 hr 04/10/20 04/11/20 04/11/20 13:03 06:30 08:32 WBC RBC Hgb Hct MCV MCH MCHC RDW Plt Count MPV Immature Gran % Neutrophils % Lymphocytes % Monocytes % Eosinophils % Basophils % Nucleated RBC % Absolute Neutrophils Absolute Lymphocytes Absolute Monocytes Absolute Eosinophils Absolute Basophils VBG Lactate 2.1 H* Sodium Potassium Chloride Carbon Dioxide Anion Gap BUN Creatinine Estimated GFR/1.73 m2 Glucose Calcium Magnesium Total Bilirubin 0.5 Conjugated Bilirubin 0.17 AST 63 H ALT 8 L Alkaline Phosphatase 152 H Total Protein 6.1 L Albumin 2.2 L Stl C.difficile Tox PCR COVID-19 PCR Negative Nasopharyn COVID-19 PCR Not Applicable Ref Test Perform Site [facility] 04/11/20 04/12/20 04/12/20 23:27 06:20 06:20 WBC 5.49 RBC 3.58 L Hgb 12.3 Hct 38.2 MCV 106.7 H MCH 34.4 H MCHC 32.2 RDW 14.6 Plt Count 121 L MPV 10.7 Immature Gran % 0.2 Neutrophils % 49.9 Lymphocytes % 32.1 Monocytes % 13.8 Eosinophils % 2.7 Basophils % 1.3 Nucleated RBC % 0 Absolute Neutrophils 2.74 Absolute Lymphocytes 1.76 Absolute Monocytes 0.76 Absolute Eosinophils 0.15 Absolute Basophils 0.07 VBG Lactate Sodium 144 Potassium 3.6 Chloride 104 Carbon Dioxide 31.7 Anion Gap 8.3 BUN 13 Creatinine 0.50 L Estimated GFR/1.73 m2 >= 60.00 Glucose 82 Calcium 8.4 L Magnesium 1.6 L Total Bilirubin 0.6 Conjugated Bilirubin 0.21 H AST 65 H ALT 10 L Alkaline Phosphatase 172 H Total Protein 6.2 L Albumin 2.2 L Stl C.difficile Tox PCR Negative COVID-19 PCR Nasopharyn COVID-19 PCR Ref Test Perform Site Imaging US - pelvic: report reviewed and image reviewed (Endometrial stripe 3.7 mm. No intracavitary filling defects normal uterus normal adnexa) US - kidney/bladder: report reviewed (Normal)
--- NOTE | 2020-04-12 08:15 | W.PM.PROGNOT ---
Date of Service Date of service: 04/12/20 Time of Service: 12:41 Assessment and Plan Assessment and plan (1) Encephalopathy acute: Status: Acute Assessment and plan: Much improved. Ddx: toxic metabolic due to PNA vs breathrough seizures and post-ictal state vs other GIVER process CT head negative. EEG ordered. Neurology feels encephalopathy is likely due to systemic infection (toxic metabolic). Continue empiric zosyn (day 3) for pneumonia. (2) Bilateral pneumonia: Status: Acute Assessment and plan: Bibasilar, present on admission. Suspected to be due to aspiration. COVID-19 negative. Continue empiric zosyn day 3. Await swallow eval as aspiration is suspected and is common with Parkinsonism. 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 Continue current tx. (4) Vaginal bleeding: Status: Acute Assessment and plan: Due to atrophic vaginal mucosa. No evidence of [employer] malignancy by imaging or exam, per [employer]. Continue steroid cream. (5) Hypotension: Status: Resolved Assessment and plan: Xfer out of ICU. (6) Intractable generalized idiopathic epilepsy without status epilepticus: Status: Chronic Assessment and plan: Converted to PO outpatent anticonvulsants. For EEG today.. (7) Dehydration: Status: Acute Assessment and plan: Continue gentle IVF - plan to stop tomorrow. (8) DVT prophylaxis: Status: Acute Assessment and plan: Resume SC heparin and monitor vaginal bleeding (9) Discharge planning issues: Status: Acute Assessment and plan: DNR/DNI Transfer out of ICU. Palliative care on board. Subjective Subjective Interval history since last seen: Melissa states she is feeling a lot better. She specifically denies a headache, dizziness, chest pain, shortness of breath, nausea, vomiting, abdominal pain. Per nursing, Ms Rose is still confused, pulling on lines/leads, didn't sleep last night. Has IV access now. Diarrhea overnight. C.Diff negative. Admits to sometimes choking on food. Exam Narrative Exam Narrative: General: Elderly obese female, looks significantly better, more alert, jokes and laughs about the state of the affairs/the news, A&Ox2, speech less slow, follows all commands; resting tremor noted HEENT: EOMI, MMM Cardiovascular: RRR, no m/r/g Lungs: Diminished breath sounds B, wet nonproductive cough while sitting up Gastrointestinal: soft, significantly less tender in LLQ, nondistended : has a goodwin Extremities: 2+ BLE edema, trace pedal pulses B Objective Last Vital Signs Temp 36.6 C 04/12/20 03:57 Pulse 85 04/12/20 03:57 Resp 13 04/12/20 03:57 BP 99/43 L 04/12/20 02:01 Pulse Ox 92 04/12/20 00:00 Laboratory Results - last 24 hr 04/10/20 04/11/20 04/11/20 13:03 08:32 23:27 WBC RBC Hgb Hct MCV MCH MCHC RDW Plt Count MPV Immature Gran % Neutrophils % Lymphocytes % Monocytes % Eosinophils % Basophils % Nucleated RBC % Absolute Neutrophils Absolute Lymphocytes Absolute Monocytes Absolute Eosinophils Absolute Basophils VBG Lactate 2.1 H* Sodium Potassium Chloride Carbon Dioxide Anion Gap BUN Creatinine Estimated GFR/1.73 m2 Glucose Calcium Magnesium Total Bilirubin Conjugated Bilirubin AST ALT Alkaline Phosphatase Total Protein Albumin Stl C.difficile Tox PCR Negative COVID-19 PCR Negative Nasopharyn COVID-19 PCR Not Applicable Ref Test [facility]form [facility] 04/12/20 04/12/20 06:20 06:20 WBC 5.49 RBC 3.58 L Hgb 12.3 Hct 38.2 MCV 106.7 H MCH 34.4 H MCHC 32.2 RDW 14.6 Plt Count 121 L MPV 10.7 Immature Gran % 0.2 Neutrophils % 49.9 Lymphocytes % 32.1 Monocytes % 13.8 Eosinophils % 2.7 Basophils % 1.3 Nucleated RBC % 0 Absolute Neutrophils 2.74 Absolute Lymphocytes 1.76 Absolute Monocytes 0.76 Absolute Eosinophils 0.15 Absolute Basophils 0.07 VBG Lactate Sodium 144 Potassium 3.6 Chloride 104 Carbon Dioxide 31.7 Anion Gap 8.3 BUN 13 Creatinine 0.50 L Estimated GFR/1.73 m2 >= 60.00 Glucose 82 Calcium 8.4 L Magnesium 1.6 L Total Bilirubin 0.6 Conjugated Bilirubin 0.21 H AST 65 H ALT 10 L Alkaline Phosphatase 172 H Total Protein 6.2 L Albumin 2.2 L Stl C.difficile Tox PCR COVID-19 PCR Nasopharyn COVID-19 PCR Ref Test Perform Site
[2020-04-12] MEDS: MAGNESIUM SULFATE 2 GM/50 ML BAG IVPB (08:42)
--- NOTE | 2020-04-12 09:45 | CMPROGNOTE_ITS ---
- If Service Date Differs Date of service: 04/12/20 Time of Service: 09:45 Care Management Progress Note S/O: Melissa was moved out of the ICU today. Her vital signs remain stable. Dr. Chaparro saw Melissa yesterday and indicated that felt the mental status change was due to the infection. Melissa remains on antibiotics. A: Melissa is n 84 year old woman admitted on 04/10/20 with dehydration aqnd bilateral pneumonia P:Melissa will return to the [facility], her residence, when ready per MD. She will transport via [facility]; dependent on ability.CM will continue to support patient, family and discharge planning needs.
--- NOTE | 2020-04-12 14:09 | PDOC.EEG_ITS ---
Neurology EEG EEG: [facility] Department of Neurology INPATIENT EEG REPORT Date of Recordin04/12/20 Interpreting Physician: Dr. Irma Car Reason for study: Ms. Rose is an 84 year-old woman with known medically- intractable epilepsy who was admitted with altered mental status and pneumonia. Current Medications: Current Medications Acetaminophen (Acetaminophen 325 Mg Tab) 650 mg PO Q4H PRN PRN Last Admin: 04/11/20 21:19 Dose: 650 mg Documented by: Aspirin (Aspirin E.C. 81 Mg Tabec) 81 mg PO DAILY [facility] Atorvastatin Calcium (Atorvastatin 10 Mg Tab) 10 mg PO QPM [facility] Carbidopa/Levodopa (Carbidopa 25/Levodopa 100 Tab) 2 tab PO TID [facility] Last Admin: 04/12/20 07:53 Dose: 2 tab Documented by: Clobetasol Propionate (Clobetasol 0.05% Oint 15 Gm Tube) 0 gm TP DAILY [facility] Dimethicone/Zinc Oxide (Tyrone Protect Cream 142 Gm Tube) 0 gm TP PRN PRN Last Admin: 04/12/20 02:46 Dose: 1 btl Documented by: Divalproex Sodium (Divalproex Sodium 500 Mg Tab.Er.24h) 1,000 mg PO BID [facility] Last Admin: 04/12/20 07:54 Dose: 1,000 mg Documented by: Docusate Sodium (Docusate Sodium 100 Mg Cap) 100 mg PO TID PRN PRN Folic Acid (Folic Acid 1 Mg Tab) 1 mg PO DAILY [facility] Heparin Sodium (Porcine) (Heparin 5,000 Units/Ml Vial) 5,000 units SC Q8H [facility] Last Admin: 04/11/20 03:05 Dose: 5,000 units Documented by: Piperacillin Sod/Tazobactam (Sod 3.375 gm/ Sodium Chloride) 50 mls @ 100 mls/hr IVPB Q6H [facility]; Protocol Last Admin: 04/12/20 07:23 Dose: 100 mls/hr Documented by: Dextrose/Sodium Chloride (Dextrose 5%-Ns) 1,000 mls @ 75 mls/hr IV INFUSION [facility] Last Admin: 04/12/20 07:23 Dose: 100 mls/hr Documented by: IV Miscellaneous Supplies (Iv Access) 1 each IV DIRECTED [facility] Lactase (Lactase Enzyme Cap) 1 cap PO TID@0800,1200,1700 [facility] Lactobacillus Acidophilus/Casei (L. Acidophilus, Casei, Rhamnosus Cap) 1 cap PO DAILY [facility] Last Admin: 04/12/20 11:59 Dose: 1 cap Documented by: Magnesium Oxide (Magnesium Oxide 400 Mg Tab) 400 mg PO TID [facility] Melatonin (Melatonin 3 Mg Tab) 3 mg PO HS [facility] Non-Formulary Medication (Omeprazole) 20 mg PO DAILY@0730 [facility] Nystatin (Nystatin Powder 15 Gm Jar) 0 gm TP BID [facility] Last Admin: 04/12/20 07:54 Dose: 1 applic Documented by: Polyethylene Glycol (Polyethylene Glycol 3350 17 Gm Packet) 17 gm PO DAILY PRN PRN PRN Reason: Constipation Primidone (Primidone 250 Mg Tab) 500 mg PO DAILY@1700 [facility] Last Admin: 04/11/20 18:49 Dose: 500 mg Documented by: Propranolol HCl (Propranolol 60 Mg Capcr) 60 mg PO DAILY [facility] Sodium Chloride (Normal Saline Flush 10 Ml Syr) 0 ml IVP PRN PRN Last Admin: 04/11/20 21:21 Dose: 40 ml Documented by: METHODS: A 21 channel digitized electroencephalogram was performed in the [facility] Med/Surg Floor or ICU. The 10/20 international system of electrode placement was used and bipolar and referential electrode montages were recorded. In addition to EEG the patient was monitored for EKG and lateral/vertical eye movements. Activation procedures of photic stimulation and hyperventilation were performed if applicable. Video was used during activation procedures and during events where applicable. The duration of the recording was 30 minutes. DESCRIPTION OF EEG: The patient was noted to be awake only during the recording. During maximal wakefulness a 7-Hz posterior background rhythm was present which was well-mo dulated, symmetrical, reactive to eye opening, and of moderate voltage. With eye opening the background activity changed to a low voltage mixture of alpha, beta, and occasional theta range frequencies. Faster frequencies were present in the bilateral anterior head regions. There was a normal anterior-posterior voltage gradient. No drowsiness or stage II sleep was recorded. There was continuous, generalized, polymorphic delta/theta slowing throughout. There were rare, high-amplitude, single, generalized spike-wave discharges. Activating Procedures: Photic stimulation was performed which produced no posterior driving response. Hyperventilation was not performed. EKG: EKG revealed normal sinus rhythm. INTERPRETATION: This EEG is abnormal due to: #1. Rare, single, generalized spike-wave discharges. #2. Continuous, generalized slowing with slowing of the PDR. PRIOR EEG: -vEEG (Apr 2015 at [facility] [place] frequent generalized 3.5 to 4 Hz spike wave and polyspike wave discharge occurring in singles and runs between 2 and 5 seconds. CLINICAL CORRELATION: The background slowing is suggestive of a mild diffuse cerebral encephalopathy of broad differential including toxic-metabolic etiology. Her epileptic discharges appear less prominent compared to previous studies. No evidence of status epilepticus. Irma Car MD
[2020-04-12] MEDS: Primidone 250 MG TAB 500 MG PO (16:12)
[2020-04-12] MEDS: Acetaminophen 325 MG TAB 650 MG PO (17:21)
[2020-04-12] MEDS: Heparin 5,000 UNITS/ML VIAL 5000 UNITS SC (17:26)
[2020-04-12] MEDS: Ibuprofen 400 MG TAB PO (18:57)
[2020-04-12] MEDS: Magnesium Oxide 400 MG TAB PO (19:08)
[2020-04-12] MEDS: Atorvastatin 10 MG TAB PO (19:08)
[2020-04-12] MEDS: Melatonin 3 MG TAB PO (22:47)
[2020-04-13] VITALS (46 sets, daily range): BP systolic 92–157; BP diastolic 32–135; PULSE 61–168; RESP 5–22; TEMP 35.1–36.9; O2SAT 88–100
--- NOTE | 2020-04-13 | DI.RAD_ITS ---
EXAM: XR TIB/FIB RT CLINICAL HISTORY: pain RLE. TECHNIQUE: 2D digital imaging was performed. COMPARISON: No exams were available for comparison FINDINGS: The examination is limited by overlying artifact. BONES: No acute fracture is present. Bones are osteopenic. No definite acute fracture or dislocation is seen. Degenerative changes are seen in the visualized portions of the knee. SOFT TISSUE: There is generalized soft tissue swelling of the foot and leg. IMPRESSION: Diffuse soft tissue swelling of the leg and foot. DATA REPOSITORY: RADIATION DOSE DELIVERED:
--- NOTE | 2020-04-13 | DI.RAD_ITS ---
EXAM: XR KNEE RT 3V AP,LAT,KELLEN CLINICAL HISTORY: RLE pain. TECHNIQUE: 2D digital imaging was performed. COMPARISON: CR XR CHEST 2V PA LATERAL from 05/10/2019 FINDINGS: BONES: No acute fracture is present. There is osteopenia. JOINTS: The knee is normally aligned. No joint effusion is seen. [id number] degenerative change s are seen in the right knee. SOFT TISSUE: There is diffuse soft tissue swelling. IMPRESSION: Diffuse soft tissue swelling around the knee which may represent cellulitis. Please correlate clinic ally. DATA REPOSITORY: RADIATION DOSE DELIVERED:
--- NOTE | 2020-04-13 | DI.RAD_ITS ---
EXAM: XR PORTABLE CHEST AP CLINICAL HISTORY: cough, follow up PNA TECHNIQUE: 2D digital imaging was performed. COMPARISON: CR XR PORTABLE CHEST AP from 04/10/2020 FINDINGS: MEDIASTINUM: Normal. HEART: Normal. PULMONARY VASCULATURE: Normal. LUNGS: There is atelectasis in the perihilar regions bilaterally. No focal consolidating infiltrates . PLEURAL SPACE: No pleural effusion or pneumothorax. BONE:Within normal limits for the patient's age. OTHER FINDINGS:There is poor inspiration. IMPRESSION: Atelectasis. DATA REPOSITORY: RADIATION DOSE DELIVERED:
[2020-04-13] MEDS: Heparin 5,000 UNITS/ML VIAL 5000 UNITS SC ×3 (01:26→19:51)
[2020-04-13] MEDS: Normal Saline Flush 10 ML SYR IVP ×2 (01:39→08:22)
[2020-04-13] MEDS: PIPERACILLIN/TAZO 3.375 GM in Normal Saline 50 ML IVPB ×4 (02:22→19:53)
[2020-04-13] MEDS: DEXTROSE 5%-0.9% SALINE 1,000 ML 100 ML IV ×2 (04:09→22:35)
[2020-04-13 06:51] LABS: Abs Immature Grans 0.02 10^3/uL (0.0-0.06); Absolute Basophil Count 0.05 10^3/uL (0.0-0.2); Absolute Eosinophil Count 0.17 10^3/uL (0.0-0.7); Absolute Lymphocyte Count 1.86 10^3/uL (1.2-3.4); Absolute Neutrophil Count 1.25 10^3/uL (1.2-6.7); Basophils % 1.3; Eosinophils % 4.5; HCT 36.1 % (36.0-46.0); HGB 11.5 g/dL (11.2-15.7); Immature Grans % 0.5; Lymphocytes % 49.6; MCH 34.5 pg (27.0-33.0); MCHC 31.9 % (32.0-36.0); MCV 108.4 fL (80-95); MPV 10.5 fL (8.0-11.0); Monocytes % 10.7; Neutrophils % 33.4; Nucleated RBC 0 %; Platelet Count 103 10^3/uL (130-400); RBC 3.33 10^6/uL (3.93-5.22); RDW 14.8 % (11.7-14.6); RDW-SD 59.9 fL; WBC 3.75 10^3/uL (4.4-10.8)
[2020-04-13 07:00] LABS: BUN 11 mg/dL (7-18); CREATININE 0.58 mg/dL (0.55-1.02); Calcium 8.2 mg/dL (8.5-10.1); Chloride 107 mmol/L (98-107); Glucose 81 mg/dL (74-106); Magnesium 2.1 mg/dL (1.8-2.4); Potassium 3.2 mmol/L (3.5-5.1); Sodium 145 mmol/L (136-145)
[2020-04-13 07:24] LABS: Diff Comment Agrees w/ Instrument; Macrocytosis 2+
[2020-04-13] MEDS: Nystatin POWDER 15 GM JAR TP (08:23)
[2020-04-13] MEDS: Dextrose 50%-Water 25 GM/50 ML SYR (09:00)
--- NOTE | 2020-04-13 09:11 | STREC_ITS ---
Date of service: 04/13/20 Time of Service: 08:30 Speech Therapy Recommendations Report ST Recommendations: HPI & Referral: Patient is an 84 year old woman admitted on 04/10/20 with dehydration and bilateral pneumonia, pmhx significant for Parkinsonism, referred by Dr. Norton for clinical swallow eval given suspected dysphagia/aspiration. S: Patient received approx 8:30AM by HOSPITAL CLERK and RN for medication administration, seated upright with significantly reduced TUNDE; patient is NPO except for pills with small sips of water per documentation review at this time. O: HOSPITAL CLERK attempted to arouse patient with RN present to assess appropriateness/safety for p.o. intake; patient seated upright but does not respond despite tactile (sternal rub, temperature change to lips) and auditory stimulus. A: Patient with significantly reduced TUNDE; inappropriate for p.o. intake at this time. Given improved alertness and assist with oral care, patient may be appropriate to begin small amounts of p.o. intake with supervision by HOSPITAL CLERK. P: If/when patient demonstrates improved alertness, please consult HOSPITAL CLERK; No changes recommended to current diet order at this time. HOSPITAL CLERK to follow, attempt pedro swallow protocol, f/u with care team at the [facility] as appropriate, re-assess for diet texture upgrade/effective strategies as appropriate. Plan is to have patient return to the [facility], her residence, when ready per . Patrizia Yarbrough MA [facility] CLERK Speech-Language Pathologist [place]#[phone] HOSPITAL CLERK Service Code: [id number]
[2020-04-13 09:20] LABS: BE 6 mmol/L (-2-3); HCO3 32 mmol/L (22-26); pH 7.32 (7.35-7.45); pO2 70 mmHg (80-105); sO2 93 % (95-98); tCO2 30 mmol/L (23-27)
[2020-04-13 09:25] LABS: FIO2L 2 L; Site Left Radial; pCO2 61 mmHg (35-45)
--- NOTE | 2020-04-13 09:27 | PDOC.CMPRO ---
Care Management Progress Note S/O: Melissa was transferred back to the ICU this morning due to borderline hypoglycemia and respiratory acidosis/hypercapnea; per MD. CM continues to follow. A: Melissa is n 84 year old woman admitted on 04/10/20 with dehydration aqnd bilateral pneumonia P: Melissa will return to the [facility], her residence, when ready per MD. She will transport via [facility]; dependent on mobility. CM will continue to support patient, family and discharge planning needs.
--- NOTE | 2020-04-13 09:53 | RESPIRATORY ---
RT in room for pt having a change in status and minimally arousable. Dr Norton ordered abg which showed acute on chronic respiratory acidosis. Pt was in a chair and looked to be having periods of apnea. RR upon being moved and aroused was 10, and breathing looked shallow. Bipap initiated at 12/5 and pt seems to be tolerating well
[2020-04-13 10:02] LABS: VALPROIC ACID 43.3 ug/mL (50-100)
[2020-04-13] MEDS: Aspirin E.C. 81 MG TABEC PO (11:14)
[2020-04-13] MEDS: Divalproex Sodium 500 MG TAB.ER.24H 1000 MG PO ×2 (11:14→19:53)
[2020-04-13] MEDS: Acetaminophen 325 MG TAB 650 MG PO ×2 (11:14→16:01)
[2020-04-13] MEDS: Propranolol 60 MG CAPCR PO (11:14)
[2020-04-13] MEDS: Folic Acid 1 MG TAB PO (11:14)
[2020-04-13] MEDS: Docusate Sodium 100 MG CAP PO (11:14)
[2020-04-13] MEDS: Omeprazole 20 MG CAPCR PO (11:30)
--- NOTE | 2020-04-13 11:46 | SP_ITS ---
Date of service: 04/13/20 Time of Service: 11:36 Subjective Patient received in ICU after transfer mid-morning; abg showed acute on chronic respiratory acidosis. Relative to earlier visit by this SALES REPRESENTATIVE EDUCATION [employer]RSES, significant improvement in TUNDE, improved affect, able to communicate wants and needs, however still demonstrates confusion re: current location, reason for hospitalization. Objective Objective Group Home Goals: Patient will demonstrate negative overt s/sx asp/pen across all p.o. trials on IDDSI level 6-soft&bite-sized solids, 0-thin liquids with caregiver assist and supervision to ensure safety/efficiency with p.o. upon discharge Short Term Goals: Patient will demonstrate negative overt s/sx asp/pen across all p.o. trials on IDDSI level 5-minced and moist solids with caregiver assist and supervision to ensure safety/efficiency with p.o. upon discharge Patient will demonstrate negative overt s/sx asp/pen across all p.o. trials on IDDSI level 0-thin liquids with caregiver assist and supervision to ensure s afety/efficiency with p.o. upon discharge Assessment Referring Doctor: Dr. Cierra MD [employer]ES REPRESENTATIVE [employer] Orders: concern for dysphagia, aspiration Precautions: DNR/DNI HPI & Referral: Patient is an 84 year old woman admitted on 04/10/20 with dehydration and bilateral pneumonia; pmhx significant for Parkinsonism, referred by Dr. Norton for clinical swallow eval given suspected dysphagia/aspiration. PMHx: Parkinsonism, essential tremor, hypotension, acute encephalopathy, UTI, anxiety Social History/Home Situation: Pt lives with assist available at the [facility] OBJECTIVE: Predisposing dysphagia risk factors: acute encephalopathy, Parkinsonism Clinical signs of possible chronic dysphagia: dehydration/UTI, bilateral pneumonia Precipitating dysphagia risk factors / triggering event: altered mental status, physical deconditioning Sp02: 95% RR: CNE / Oral Motor: facial sensation intact to LT; labial protrusion - symmetrical; labial coordination/ROM - WFL, palatal elevation - symmetrical; VQ WFL Dentition/Oral Structures/Hygiene: anterior maxillary and mandibular incisors present, maxillary and mandibular premolars absent; oral hygiene appears adequate, unable to communicate oral care regimen given cognitive status Language: verbal expression/fluency, naming, repetition, and auditory comprehension (when speaking at higher volume) grossly WFL Hearing: Impaired Mental Status: AAOx2, difficulties with recall of current events, unable to identify current location or state where home is; does endorse that she lives in [place] Speech: WFL Laryngeal function exam: Secretions: WFL Vocal quality: WFL MPT: 8 secs (reduced) S/Z ratio: DNT Pitch range: WFL Cough: (volitional) perceptually WFL PO intake IDDSI 0: WFL via tsp, cup sip, sequential swallow x2 with assist for feeding IDDSI 4: WFL via tsp with assist for feeding IDDSI 5: WFL via tsp with assist for feeding Pills: Administered with RN present in both applesauce (level 3) and with sips of 0-thin water [place] Swallow Protocol: Fail, unable to complete d/t cognitive deficits Notes: Discussed recommendations with Dr Cierra RD, and nursing staff re: diet change as outlined below, recommend follow up with SALES REPRESENTATIVE [employer]UCATION [employer] upon discharge from unit for continued training/education and/or diet texture changes as warranted IMPRESSIONS: Patient does not demonstrate overt s/sx oropharyngeal dysphagia at this time, is appropriate from oropharyngeal standpoint for consumption of p.o. with outlined recommendations; patient is, however, at moderate risk for aspiration-related pulmonary complication, given fluctuating cognitive status, recent PNA; improvements in physical mobility, continuation of adequate oral care, and overall pulmonary function likely to further reduce this risk, however essential tremor with Parkinsonism does complicate prognosis; progressive change to swallowing function is suspected, unable to be assessed without objective swallow imaging at this time. SALES REPRESENTATIVE [employer]UC[employer] to follow while on unit, recommend SALES REPRESENTATIVE [employer]UCATION [employer]ES eval/treat upon discharge, with continued palliative consultation. Recommendations: Recommendations: Please see below. Plan Instrumentation: N/A Diet recommendation: IDDSI Level 5-Minced & Moist (Mechanically Altered/Ground) with Level 0-Thin liquid diet; Pills 1 at a time with thin liquids via cup sip, or in puree for larger pills (patient able to communicate preference given size of pill) Risk management: Oral hygiene QID or as tolerated. HOB upright as tolerated; Encourage physical mobility as tolerated. Small bites/sips, alternate bite of solid with sip of liquid. Patient will require assist with feeding given essential tremor, with supervision given recent hx of fluctuating cognitive status Specialist referrals: N/A Ancillary tests: N/A Therapy: Continue p.o. trials and patient/caregiver education as appropriate while on unit, recommend continued SALES REPRESENTATIVE [employer]UC[employer]ES treatment upon discharge Goal: Patient will demonstrate negative overt s/sx asp/pen across all p.o. trials on IDDSI level 5-soft&bite-sized solids, 0-thin liquids with caregiver assist and supervision to ensure safety/efficiency with p.o. upon discharge; caregivers will return demonstration of recommendations to ensure safe/efficient p.o. intake upon discharge Patrizia Yarbrough MA CCC-SALES REPRESENTATIVE [employer]UCATION COURSES [phone] SALES REPRESENTATIVE [employer]UCATION [employer]ES CPT Code: 62574 Clinical Swallowing Evaluation
--- NOTE | 2020-04-13 12:14 | W.NUTCONSULT ---
Date of service: 04/13/20 Time of Service: 12:14 Nutritional Consult ASSESSMENT: 84 year old female admitted with bilateral PNA, possible aspiration PNA. BMI indicates class 1 obesity. Lives at [facility] and followed by [facility] care. Has had little or no po intake for last 3 days. Currently NPO. Will be at high nutritional risk if poor intake > 5 days. Does not want artificial nutrition. CERTIFIED DRIVER EXAMINER consult pending. NUTRITIONAL DIAGNOSIS: Inadequate intake of nutrients due to NPO status or poor intake. INTERVENTION: none at this time does not want artificial nutrition MONITORING AND EVALUATION: diet advancement, po intake, labs, weight Time Spent in Nutritional Counseling and Treatment: 0
[2020-04-13] MEDS: Magnesium Oxide 400 MG TAB PO ×2 (13:07→19:54)
[2020-04-13] MEDS: Carbidopa 25/Levodopa 100 TAB PO ×2 (13:08→19:53)
--- NOTE | 2020-04-13 13:41 | W.PM.PROGNOT ---
Date of Service Date of service: 04/13/20 Time of Service: 08:45 Assessment and Plan Assessment and plan (1) Encephalopathy acute: Status: Acute Assessment and plan: Recurrent. Today this coincided with both borderline hypoglycemia and respiratory acidosis/hypercapnea. Transferred to the ICU. Discussed with Dr Car. There is a possibility that primidone might be making SULAIMAN worse if the patient, in fact, has it. We agreed to trial BiPAP QHS and see how the patient does as far as her mental status. If overall, her mental status does not return to normal after using BiPAP at night, medication changes would be considered. We are also addressing low blood sugar/hypothermia. Post-ictal state less likely. No need for repeat EEG at this time, per Dr Car. (2) Bilateral pneumonia: Status: Acute Assessment and plan: Bibasilar, present on admission. Suspected to be due to aspiration. COVID-19 negative. Appreciate speech therapy eval. Repeat CXR given hypothermia. Continue zosyn day 4. 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 Continue current tx. (4) Vaginal bleeding: Status: Acute Assessment and plan: Due to atrophic vaginal mucosa. No evidence of ICE PLATFORM SUPERVISOR malignancy by imaging or exam, per ICE PLATFORM SUPERVISOR. Continue steroid cream. (5) Hypotension: Status: Acute Assessment and plan: s/p bolus of IVF. Continue MIVF. 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 We are awaiting primidone/phenobarb levels. Depakote level low. EEG with encephalopathy. (7) Dehydration: Status: Acute Assessment and plan: Continue gentle IVF. (8) DVT prophylaxis: Status: Acute Assessment and plan: Continue SC heparin. (9) Discharge planning issues: Status: Acute Assessment and plan: DNR/DNI Transferred back to the ICU for initiation of BiPAP. Total Critical Care Time 40 minutes. Will call family. Subjective Subjective Interval history since last seen: I was called to the patient's bedside because she was difficult to arouse even to a sternal rub, though she would moan eventually. She was having obvious apneic spells. Her BG was 75, her SBP was in 100. Her ABG revealed pH of 7.3/61/70/32/93% on 2L. She received a bolus of D50. She is DNR/DNI, but we felt BiPAP was appropriate. She was transferred to the ICU. Since then, her mental status has improved significantly. She passed a swallow eval with speech therapy. She denies dizziness, headache, chest pain, shortness of breath. She is coughing. Denies n/v. Her BG now is 95, even after lunch. She has been afebrile, but in fact hypothermic. Reports pain RLE Exam Narrative Exam Narrative: Exam below is done at the time of the acute event this morning: General: Elderly obese female, difficult to arouse, moans when does respond to painful stimuli, apneic episodes observed as well as snoring HEENT: not opening eyes spontaneously. Cardiovascular: RRR, no m/r/g Lungs: Diminished breath sounds B Gastrointestinal: soft, nontender, nondistended : has a goodwin with dark concentrated urine, Extremities: 2+ BLE edema, trace pedal pulses B, tenderness in distal RLE Objective Last Vital Signs Temp 35.3 C L 04/13/20 13:15 Pulse 80 04/13/20 10:53 Resp 10 L 04/13/20 09:40 BP 100/60 04/13/20 09:40 Pulse Ox 96 04/13/20 10:53 Laboratory Results - last 24 hr 04/13/20 04/13/20 04/13/20 06:25 06:25 06:25 WBC 3.75 L D RBC 3.33 L Hgb 11.5 Hct 36.1 MCV 108.4 H MCH 34.5 H MCHC 31.9 L RDW 14.8 H Plt Count 103 L MPV 10.5 Immature Gran % 0.5 Neutrophils % 33.4 Lymphocytes % 49.6 Monocytes % 10.7 Eosinophils % 4.5 Basophils % 1.3 Nucleated RBC % 0 Absolute Neutrophils 1.25 Absolute Lymphocytes 1.86 Absolute Monocytes 0.40 Absolute Eosinophils 0.17 Absolute Basophils 0.05 RBC Morphology See below Macrocytosis 2+ ABG Sample Site ABG pH ABG pCO2 ABG pO2 ABG HCO3 ABG Total CO2 ABG O2 Saturation ABG Base Excess Oxygen Liter Flow Sodium 145 Potassium 3.2 L Chloride 107 Carbon Dioxide 32.0 Anion Gap 6.0 BUN 11 Creatinine 0.58 Estimated GFR/1.73 m2 >= 60.00 Glucose 81 Calcium 8.2 L Magnesium 2.1 Total Valproic Acid 43.3 L 04/13/20 09:15 WBC RBC Hgb Hct MCV MCH MCHC RDW Plt Count MPV Immature Gran % Neutrophils % Lymphocytes % Monocytes % Eosinophils % Basophils % Nucleated RBC % Absolute Neutrophils Absolute Lymphocytes Absolute Monocytes Absolute Eosinophils Absolute Basophils RBC Morphology Macrocytosis ABG Sample Site Left radial ABG pH 7.32 L ABG pCO2 61 H* ABG pO2 70 L ABG HCO3 32 H ABG Total CO2 30 H ABG O2 Saturation 93 L ABG Base Excess 6 H Oxygen Liter Flow 2 Sodium Potassium Chloride Carbon Dioxide Anion Gap BUN Creatinine Estimated GFR/1.73 m2 Glucose Calcium Magnesium Total Valproic Acid
[2020-04-13 14:36] LABS: Bilirubin Negative (Negative); Blood Moderate (Negative); Clarity Sl Cloudy (Clear); Glucose Negative (Negative); Ketones Trace mg/dL (Negative); Leukocyte Esterase Negative (Negative); Nitrite Negative (Negative); Specific Gravity 1.025 (1.005-1.025); Urobilinogen 0.2 EU/dL (Up TO 0.2); pH 5.5 (5-8)
[2020-04-13 14:47] LABS: Bacteria Many HPF (Negative); C & S Indicated? C&S Done As Ordered; Crystals Negative HPF (Negative); Epithelial Cells Few HPF (Negative); Mucus Negative (Negative); Other Cells Mod Transitional (Negative); RBC >50 HPF (0-2); WBC >50 HPF (0-5)
[2020-04-13] MEDS: Ibuprofen 400 MG TAB PO (16:00)
[2020-04-13] MEDS: Primidone 250 MG TAB 500 MG PO (16:00)
[2020-04-13] MEDS: Normal Saline 1,000 ML 1000 ML IV (16:01)
--- NOTE | 2020-04-13 17:47 | W.PM.PROGNOT ---
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 WIll re-evaluate at your request Subjective Subjective Interval history since last seen: Interval notes reviewed. pt is awake, not really communicative. Nursing is having to feed her. She has not had fever/chills. She is tolerating a diet. She has no abdominal pain at this time. She did have a small formed brown BM. at this time- pt does not have any signs of acute abdominal pathology. Pt has no pain and is tolerating her diet. Exam GI Inspection: normal to inspection Rectal Exam - female: laceration Objective Last Vital Signs Temp 35.6 C L 04/13/20 15:45 Pulse 75 04/13/20 16:00 Resp 12 04/13/20 16:00 BP 137/64 04/13/20 16:00 Pulse Ox 91 L 04/13/20 16:00 Laboratory Results - last 24 hr 04/13/20 04/13/20 04/13/20 06:25 06:25 06:25 WBC 3.75 L D RBC 3.33 L Hgb 11.5 Hct 36.1 MCV 108.4 H MCH 34.5 H MCHC 31.9 L RDW 14.8 H Plt Count 103 L MPV 10.5 Immature Gran % 0.5 Neutrophils % 33.4 Lymphocytes % 49.6 Monocytes % 10.7 Eosinophils % 4.5 Basophils % 1.3 Nucleated RBC % 0 Absolute Neutrophils 1.25 Absolute Lymphocytes 1.86 Absolute Monocytes 0.40 Absolute Eosinophils 0.17 Absolute Basophils 0.05 RBC Morphology See below Macrocytosis 2+ ABG Sample Site ABG pH ABG pCO2 ABG pO2 ABG HCO3 ABG Total CO2 ABG O2 Saturation ABG Base Excess Oxygen Liter Flow Sodium 145 Potassium 3.2 L Chloride 107 Carbon Dioxide 32.0 Anion Gap 6.0 BUN 11 Creatinine 0.58 Estimated GFR/1.73 m2 >= 60.00 Glucose 81 Calcium 8.2 L Magnesium 2.1 Urine Color Urine Clarity Urine pH Ur Specific [place] Urine Protein Urine Ketones Urine Blood Urine Nitrite Urine Bilirubin Urine Urobilinogen Ur Leukocyte Esterase Urine RBC Urine WBC Ur Epithelial Cells Urine Crystals Urine Bacteria Urine Casts Urine Mucus Urine Other Ur Culture Indicated? Urine Glucose Total Valproic Acid 43.3 L 04/13/20 04/13/20 09:15 14:05 WBC RBC Hgb Hct MCV MCH MCHC RDW Plt Count MPV Immature Gran % Neutrophils % Lymphocytes % Monocytes % Eosinophils % Basophils % Nucleated RBC % Absolute Neutrophils Absolute Lymphocytes Absolute Monocytes Absolute Eosinophils Absolute Basophils RBC Morphology Macrocytosis ABG Sample Site Left radial ABG pH 7.32 L ABG pCO2 61 H* ABG pO2 70 L ABG HCO3 32 H ABG Total CO2 30 H ABG O2 Saturation 93 L ABG Base Excess 6 H Oxygen Liter Flow 2 Sodium Potassium Chloride Carbon Dioxide Anion Gap BUN Creatinine Estimated GFR/1.73 m2 Glucose Calcium Magnesium Urine Color Yellow Urine Clarity Sl cloudy Urine pH 5.5 Ur Specific [place] 1.025 Urine Protein 100 H Urine Ketones Trace H Urine Blood Moderate H Urine Nitrite Negative Urine Bilirubin Negative Urine Urobilinogen 0.2 Ur Leukocyte Esterase Negative Urine RBC >50 H Urine WBC >50 H Ur Epithelial Cells Few Urine Crystals Negative Urine Bacteria Many Urine Casts 20-50 coarsegranular Urine Mucus Negative Urine Other Mod transitional Ur Culture Indicated? C&s done as ordered Urine Glucose Negative Total Valproic Acid
--- NOTE | 2020-04-13 18:20 | NUR.NOTE ---
Patient awakened within an hour of being in the ICU post-transfer. The patient was placed on N/C and monitored throughout the day. by 1400, the patient had gradually become less arouseable and was placed back on bipap. She again became alert within two hours. The patient hypoventilates when resting despite having 02 sat at 97-100% while sleeping. Patient needs to have bipap on when resting despite 02 sat. Nursing Note:
[2020-04-13] MEDS: Furosemide 20 MG/2 ML VIAL IVP (19:48)
[2020-04-13] MEDS: Atorvastatin 10 MG TAB PO (19:53)
[2020-04-13] MEDS: Potassium Chloride 20 MEQ TABCR PO (19:54)
[2020-04-14] VITALS (51 sets, daily range): BP systolic 103–142; BP diastolic 27–90; PULSE 66–81; RESP 9–18; TEMP 36.2–36.7; O2SAT 74–100
[2020-04-14] MEDS: Heparin 5,000 UNITS/ML VIAL 5000 UNITS SC ×3 (02:08→18:45)
[2020-04-14] MEDS: PIPERACILLIN/TAZO 3.375 GM in Normal Saline 50 ML IVPB ×4 (02:08→20:38)
[2020-04-14 06:35] LABS: BE (Venous) 6 mmol/L (-2-3); HCO3 (Venous) 31 mmol/L (23-28); O2 Sat (Venous) 86 %; TCO2 (Venous) 29 mmol/L (24-29); pCO2 (Venous) 56 mmHg (41-51); pH (Venous) 7.36 (7.31-7.41); pO2 (Venous) 51 mmHg
[2020-04-14 06:36] LABS: HCT 37.9 % (36.0-46.0); HGB 11.7 g/dL (11.2-15.7); MCHC 30.9 % (32.0-36.0); MCV 110.2 fL (80-95); MPV 10.5 fL (8.0-11.0); Nucleated RBC 0 %; Platelet Count 141 10^3/uL (130-400); RBC 3.44 10^6/uL (3.93-5.22); RDW 14.7 % (11.7-14.6); WBC 4.39 10^3/uL (4.4-10.8)
[2020-04-14 06:47] LABS: Anion Gap 3.4 mmol/L (3-11); BUN 9 mg/dL (7-18); CO2 30.6 mmol/L (21.0-32.0); CREATININE 0.63 mg/dL (0.55-1.02); Calcium 8.1 mg/dL (8.5-10.1); Chloride 109 mmol/L (98-107); Glucose 85 mg/dL (74-106); Magnesium 1.8 mg/dL (1.8-2.4); Potassium 3.9 mmol/L (3.5-5.1); Sodium 143 mmol/L (136-145)
[2020-04-14 07:23] LABS: Absolute Neutrophil Count 1.54 10^3/uL (1.2-6.7)
[2020-04-14 07:24] LABS: Absolute Eosinophil Count 0.31 10^3/uL (0.0-0.7); Absolute Lymphocyte Count 2.02 10^3/uL (1.2-3.4); Absolute Monocyte Count 0.53 10^3/uL (0.1-0.8); Atypical Lymphocytes % 5; Diff Comment Manual Differential; Macrocytosis 2+; Poikilocytes 1+; Polychromasia Present
[2020-04-14] MEDS: Omeprazole 20 MG CAPCR PO (08:11)
[2020-04-14] MEDS: Folic Acid 1 MG TAB PO (08:12)
[2020-04-14] MEDS: Magnesium Oxide 400 MG TAB PO ×3 (08:12→20:39)
[2020-04-14] MEDS: Carbidopa 25/Levodopa 100 TAB PO ×3 (08:12→20:38)
[2020-04-14] MEDS: Aspirin E.C. 81 MG TABEC PO (08:12)
[2020-04-14] MEDS: Divalproex Sodium 500 MG TAB.ER.24H 1000 MG PO ×2 (08:12→20:38)
[2020-04-14] MEDS: Propranolol 60 MG CAPCR PO (08:13)
[2020-04-14] MEDS: Nystatin POWDER 15 GM JAR TP ×2 (08:13→22:43)
[2020-04-14] MEDS: Potassium Chloride 20 MEQ TABCR PO ×2 (08:13→20:39)
--- NOTE | 2020-04-14 08:14 | PGE_ITS ---
Date of Service Date of service: 04/14/20 Time of Service: 12:17 Assessment and Plan Assessment and plan (1) Encephalopathy acute: Status: Acute Assessment and plan: Now felt to be mostly due to CO2 retention. The patient is tolerating BiPAP. We are titrating settings so that she does not snore with it on. There is a possibility that primidone might be making SULAIMAN worse if the patient, in fact, has it. Continue BiPAP QHS. I think it is less likely that BGs in the 70s have caused this level of obtundation yesterday. Can likely move out of the ICU later today. (2) Bilateral pneumonia: Status: Acute Assessment and plan: Bibasilar, present on admission. Suspected to be due to aspiration. CXR yesterday only shows atelectasis. Passed swallow eval. COVID-19 negative. Continue zosyn day 5 - would d/c tomorrow. 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 Continue current tx. (4) Vaginal bleeding: Status: Acute Assessment and plan: Due to atrophic vaginal mucosa. No evidence of ORNAMENTAL METAL FABRICATOR APPRENTICE malignancy by imaging or exam, per ORNAMENTAL METAL FABRICATOR APPRENTICE. Continue steroid cream. (5) Hypotension: Status: Acute Assessment and plan: s/p bolus of IVF. Continue MIVF. 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 Primidone/phenobarb levels pending. Depakote level low. EEG with encephalopathy. (7) Dehydration: Status: Acute Assessment and plan: Continue gentle IVF. (8) DVT prophylaxis: Status: Acute Assessment and plan: Continue SC heparin. (9) Discharge planning issues: Status: Acute Assessment and plan: DNR/DNI Keep in ICU for now with plans to transfer out later this afternoon - we are titrating BiPAP settings. Total Critical Care Time 40 minutes. Subjective Subjective Interval history since last seen: Wore BiPAP overnight (at least 5 hrs) and is wearing it now while sleeping. She is arousable, but falls quickly back asleep - on BiPAP. The only answer I can understand with the BiPAP mask on is that she thinks that the mask is not terrible. She ate breakfast, but FBG was 71. Mental status good this morning, per nursing - took pills. Awake this morning. Exam Narrative Exam Narrative: General: Elderly obese female, asleep on BiPAP, heard snoring with BiPAP on, arousable, but promptly falls back asleep. Appears comfortable HEENT: EOMI, MMM when awake Cardiovascular: RRR, no m/r/g Lungs: Diminished breath sounds B with BiPAP on Gastrointestinal: soft, nontender, nondistended : has a goodwin Extremities: 3+ BLE edema, the patient does not wake up with me examining Objective Last Vital Signs Temp 36.2 C L 04/14/20 03:20 Pulse 72 04/14/20 06:02 Resp 15 04/14/20 05:01 BP 113/50 L 04/14/20 06:02 Pulse Ox 96 04/14/20 06:02 Laboratory Results - last 24 hr 04/13/20 04/13/20 04/13/20 06:25 09:15 14:05 WBC RBC Hgb Hct MCV MCH MCHC RDW Plt Count MPV Immature Gran % Neutrophils % Lymphocytes % Atypical Lymphs % Monocytes % Eosinophils % Basophils % Nucleated RBC % Absolute Neutrophils Absolute Lymphocytes Absolute Monocytes Absolute Eosinophils Absolute Basophils RBC Morphology Polychromasia Poikilocytosis Macrocytosis ABG Sample Site Left radial ABG pH 7.32 L ABG pCO2 61 H* ABG pO2 70 L ABG HCO3 32 H ABG Total CO2 30 H ABG O2 Saturation 93 L ABG Base Excess 6 H VBG pH VBG pCO2 VBG pO2 VBG HCO3 VBG Total CO2 VBG O2 Saturation VBG Base Excess Oxygen Liter Flow 2 Sodium Potassium Chloride Carbon Dioxide Anion Gap BUN Creatinine Estimated GFR/1.73 m2 Glucose Calcium Magnesium Urine Color Yellow Urine Clarity Sl cloudy Urine pH 5.5 Ur Specific [place] 1.025 Urine Protein 100 H Urine Ketones Trace H Urine Blood Moderate H Urine Nitrite Negative Urine Bilirubin Negative Urine Urobilinogen 0.2 Ur Leukocyte Esterase Negative Urine RBC >50 H Urine WBC >50 H Ur Epithelial Cells Few Urine Crystals Negative Urine Bacteria Many Urine Casts 20-50 coarsegranular Urine Mucus Negative Urine Other Mod transitional Ur Culture Indicated? C&s done as ordered Urine Glucose Negative Total Valproic Acid 43.3 L 04/14/20 04/14/20 04/14/20 06:15 06:15 06:15 WBC 4.39 L RBC 3.44 L Hgb 11.7 Hct 37.9 MCV 110.2 H MCH 34.0 H MCHC 30.9 L RDW 14.7 H Plt Count 141 MPV 10.5 Immature Gran % 0.0 Neutrophils % 35.0 Lymphocytes % 41.0 Atypical Lymphs % 5 Monocytes % 12.0 Eosinophils % 7.0 Basophils % 0.0 Nucleated RBC % 0 Absolute Neutrophils 1.54 Absolute Lymphocytes 2.02 Absolute Monocytes 0.53 Absolute Eosinophils 0.31 Absolute Basophils 0.00 RBC Morphology See below Polychromasia Present Poikilocytosis 1+ Macrocytosis 2+ ABG Sample Site ABG pH ABG pCO2 ABG pO2 ABG HCO3 ABG Total CO2 ABG O2 Saturation ABG Base Excess VBG pH 7.36 VBG pCO2 56 H VBG pO2 51 VBG HCO3 31 H VBG Total CO2 29 VBG O2 Saturation 86 VBG Base Excess 6 H Oxygen Liter Flow Sodium 143 Potassium 3.9 D Chloride 109 H Carbon Dioxide 30.6 Anion Gap 3.4 BUN 9 Creatinine 0.63 Estimated GFR/1.73 m2 >= 60.00 Glucose 85 Calcium 8.1 L Magnesium 1.8 Urine Color Urine Clarity Urine pH Ur Specific [place] Urine Protein Urine Ketones Urine Blood Urine Nitrite Urine Bilirubin Urine Urobilinogen Ur Leukocyte Esterase Urine RBC Urine WBC Ur Epithelial Cells Urine Crystals Urine Bacteria Urine Casts Urine Mucus Urine Other Ur Culture Indicated? Urine Glucose Total Valproic Acid
--- NOTE | 2020-04-14 08:49 | PDOC.CMPRO ---
Care Management Progress Note S/O: Melissa will transfer back to M/S status, BIPAP being recommended for discharge; undetermined if Melissa will tolerate at this time. She was sleeping with BIPAP on in the ICU when CM observed her this morning. CM continues to follow. A: Melissa is n 84 year old woman admitted on 04/10/20 with dehydration aqnd bilateral pneumonia P: Melissa will return to the [facility], her residence, when ready per MD. recommending BIPAP for use at [facility] upon discharge; undetermined if Melissa will tolerate at this time. She will transport via EMS-vs-W/[facility] Van; dependent on mobility. CM will continue to support patient, family and discharge planning needs.
[2020-04-14] MEDS: DEXTROSE 5%-0.9% SALINE 1,000 ML 75 ML IV (14:00)
[2020-04-14 15:12] LABS: Primidone 9.3 mcg/mL (5.0 - 12.0)
[2020-04-14] MEDS: Primidone 250 MG TAB 500 MG PO (18:45)
[2020-04-14] MEDS: Atorvastatin 10 MG TAB PO (20:38)
[2020-04-15] VITALS (12 sets, daily range): BP systolic 119–162; BP diastolic 69–74; PULSE 79–85; RESP 12–18; TEMP 36–37.9; O2SAT 91–94
[2020-04-15] MEDS: PIPERACILLIN/TAZO 3.375 GM in Normal Saline 50 ML IVPB ×2 (01:51→08:25)
[2020-04-15] MEDS: Heparin 5,000 UNITS/ML VIAL 5000 UNITS SC ×3 (01:54→17:28)
[2020-04-15] MEDS: DEXTROSE 5%-0.9% SALINE 1,000 ML 75 ML IV (03:48)
[2020-04-15 07:29] LABS: Abs Immature Grans 0.01 10^3/uL (0.0-0.06); Absolute Basophil Count 0.04 10^3/uL (0.0-0.2); Absolute Eosinophil Count 0.19 10^3/uL (0.0-0.7); Absolute Lymphocyte Count 1.63 10^3/uL (1.2-3.4); Absolute Neutrophil Count 1.76 10^3/uL (1.2-6.7); Basophils % 0.9; Eosinophils % 4.5; HCT 34.6 % (36.0-46.0); HGB 10.9 g/dL (11.2-15.7); Immature Grans % 0.2; Lymphocytes % 38.5; MCH 34.2 pg (27.0-33.0); MCHC 31.5 % (32.0-36.0); MCV 108.5 fL (80-95); MPV 10.6 fL (8.0-11.0); Monocytes % 14.2; Neutrophils % 41.7; Nucleated RBC 0 %; Platelet Count 117 10^3/uL (130-400); RBC 3.19 10^6/uL (3.93-5.22); RDW-SD 59.9 fL; WBC 4.23 10^3/uL (4.4-10.8)
[2020-04-15] MEDS: Aspirin E.C. 81 MG TABEC PO (07:38)
[2020-04-15] MEDS: Omeprazole 20 MG CAPCR PO (07:38)
[2020-04-15] MEDS: Carbidopa 25/Levodopa 100 TAB PO ×3 (07:38→20:51)
[2020-04-15] MEDS: Potassium Chloride 20 MEQ TABCR PO ×2 (07:38→20:51)
[2020-04-15] MEDS: Folic Acid 1 MG TAB PO (07:39)
[2020-04-15] MEDS: Normal Saline Flush 10 ML SYR IVP (07:39)
[2020-04-15] MEDS: Propranolol 60 MG CAPCR PO (07:39)
[2020-04-15] MEDS: Divalproex Sodium 500 MG TAB.ER.24H 1000 MG PO ×2 (07:39→20:51)
[2020-04-15] MEDS: Magnesium Oxide 400 MG TAB PO ×3 (07:39→20:51)
[2020-04-15] MEDS: Nystatin POWDER 15 GM JAR TP ×2 (07:43→20:52)
[2020-04-15 07:46] LABS: Anion Gap 2.1 mmol/L (3-11); BUN 7 mg/dL (7-18); CO2 30.9 mmol/L (21.0-32.0); CREATININE 0.42 mg/dL (0.55-1.02); Chloride 111 mmol/L (98-107); Glucose 91 mg/dL (74-106); Magnesium 1.8 mg/dL (1.8-2.4); Potassium 4.1 mmol/L (3.5-5.1); Sodium 144 mmol/L (136-145)
--- NOTE | 2020-04-15 10:50 | W.PM.PROGNOT ---
Date of Service Date of service: 04/15/20 Time of Service: 10:50 Assessment and Plan Assessment and plan (1) Encephalopathy acute: Start date: 04/15/20 Start time: 10:53 Status: Resolved Assessment and plan: Liekly due to CO2 retention. Awake watching tv. Wore bipap overnight able to answer all questions appropriately. (2) Bilateral pneumonia: Start date: 04/15/20 Start time: 10:54 Status: Acute Assessment and plan: CXR with atelectasis only Finished 5 day course zosyn Passed swallow eval. COVID-19 negative. Anticipate discharge to [facility] on Friday (3) Mesenteric panniculitis: Start date: 04/15/20 Start time: 10:55 Status: Suspected Assessment and plan: Clinically much improved without any intervention other than bowel rest, antibiotics, fluids. Continue current tx. Tolerating regular diet (4) Vaginal bleeding: Start date: 04/15/20 Start time: 10:55 Status: Acute Assessment and plan: Due to atrophic vaginal mucosa. No evidence of FLOWER SHOP LABORER/DESIGNER malignancy by imaging or exam, per FLOWER SHOP LABORER/DESIGNER. Continue steroid cream. (5) Hypotension: Start date: 04/15/20 Start time: 10:56 Status: Resolved Assessment and plan: D/c IVF monitor BP (6) Intractable generalized idiopathic epilepsy without status epilepticus: Start date: 04/15/20 Start time: 10:57 Status: Chronic Assessment and plan: Continue depakote and primidone for now, per Dr Car. Primidone/phenobarb levels pending. Depakote level low. EEG with encephalopathy. (7) Dehydration: Start date: 04/15/20 Start time: 10:57 Status: Resolved Assessment and plan: Encourage PO intake, patient more awake, D/C IVF (8) DVT prophylaxis: Start date: 04/15/20 Start time: 10:58 Status: Acute Assessment and plan: Continue SC heparin. (9) Discharge planning issues: Start date: 04/15/20 Start time: 10:58 Status: Acute Assessment and plan: DNR/DNI Repeat COVID for possible discharge on Friday back to [facility] to coordinate above case discussed with Dr. Ruiz who is in agreement. Subjective Subjective Patient reports: no new complaints Interval history since last seen: Doing well. AAOx3 answering questions appropriately. She did well with bipap overnight. Repeat COVID, she could go back to the [facility] likely Friday. She denies CP, SOB, N/V/D. Exam Narrative Exam Narrative: General: Elderly obese female, AAO x3, watching tv. Appears comfortable HEENT: EOMI, MMM when awake Cardiovascular: RRR, no m/r/g Lungs: LSC no wheezing, rhonchi, on 2 liters at baseline Gastrointestinal: soft, nontender, nondistended, bsx4 : has a goodwin Extremities: 3+ BLE edema, which she states is baseline Objective Last Vital Signs Temp 36.3 C L 04/15/20 07:40 Pulse 83 04/15/20 07:40 Resp 15 04/15/20 07:40 BP 152/74 H 04/15/20 07:40 Pulse Ox 92 04/15/20 08:29 Laboratory Results - last 24 hr 04/13/20 04/15/20 04/15/20 06:25 06:35 06:35 WBC 4.23 L RBC 3.19 L Hgb 10.9 L Hct 34.6 L MCV 108.5 H MCH 34.2 H MCHC 31.5 L RDW 15.0 H Plt Count 117 L MPV 10.6 Immature Gran % 0.2 Neutrophils % 41.7 Lymphocytes % 38.5 Monocytes % 14.2 Eosinophils % 4.5 Basophils % 0.9 Nucleated RBC % 0 Absolute Neutrophils 1.76 Absolute Lymphocytes 1.63 Absolute Monocytes 0.60 Absolute Eosinophils 0.19 Absolute Basophils 0.04 Sodium 144 Potassium 4.1 Chloride 111 H Carbon Dioxide 30.9 Anion Gap 2.1 L BUN 7 Creatinine 0.42 L Estimated GFR/1.73 m2 >= 60.00 Glucose 91 Calcium 8.0 L Magnesium 1.8 Primidone 9.3 Phenobarbital 39.0
--- NOTE | 2020-04-15 11:06 | CMPROGNOTE_ITS ---
- If Service Date Differs Date of service: 04/15/20 Time of Service: 11:06 Care Management Progress Note S/O: Melissa was lying in bed when CM met with her. When told the plan is for her to return to the [facility] on Friday, she smiled and stated I hope so! She admitted to being very happy there. Clinically she is doing well. Her vital signs are stable, her oxygen saturation is 94% on room air and she remains afebrile. A: Melissa is n 84 year old woman admitted on 04/10/20 with dehydration aqnd bilateral pneumonia P: Melissa will return to the [facility], her residence, when ready per MD. MD recommending BIPAP for use at [facility] upon discharge; undetermined if Melissa will tolerate at this time. She will transport via EMS-vs-W/[facility] Van; dependent on mobility. CM will continue to support patient, family and discharge planning needs.
[2020-04-15] MEDS: Primidone 250 MG TAB 500 MG PO (17:28)
[2020-04-15] MEDS: Atorvastatin 10 MG TAB PO (20:51)
[2020-04-16] VITALS (20 sets, daily range): BP systolic 108–167; BP diastolic 69–92; PULSE 70–86; RESP 11–18; TEMP 36.6–37.4; O2SAT 86–96
[2020-04-16] MEDS: Heparin 5,000 UNITS/ML VIAL 5000 UNITS SC ×3 (02:23→18:05)
[2020-04-16 07:25] LABS: HCT 37.9 % (36.0-46.0); HGB 12.1 g/dL (11.2-15.7); MCHC 31.9 % (32.0-36.0); MCV 109.5 fL (80-95); MPV 10.7 fL (8.0-11.0); Platelet Count 137 10^3/uL (130-400); RBC 3.46 10^6/uL (3.93-5.22); RDW-SD 60.6 fL
[2020-04-16 07:32] LABS: Anion Gap 3.3 mmol/L (3-11); BUN 7 mg/dL (7-18); CO2 32.7 mmol/L (21.0-32.0); CREATININE 0.42 mg/dL (0.55-1.02); Calcium 8.8 mg/dL (8.5-10.1); Chloride 107 mmol/L (98-107); Glucose 80 mg/dL (74-106); Magnesium 1.8 mg/dL (1.8-2.4); Potassium 4.9 mmol/L (3.5-5.1); Sodium 143 mmol/L (136-145)
[2020-04-16] MEDS: Carbidopa 25/Levodopa 100 TAB PO ×3 (07:39→19:46)
[2020-04-16] MEDS: Divalproex Sodium 500 MG TAB.ER.24H 1000 MG PO ×2 (07:39→19:46)
[2020-04-16] MEDS: Propranolol 60 MG CAPCR PO (07:39)
[2020-04-16] MEDS: Acetaminophen 325 MG TAB 650 MG PO ×3 (07:40→19:47)
[2020-04-16] MEDS: Magnesium Oxide 400 MG TAB PO ×3 (07:40→19:47)
[2020-04-16] MEDS: Folic Acid 1 MG TAB PO (07:40)
[2020-04-16] MEDS: Normal Saline Flush 10 ML SYR IVP ×2 (07:40→16:33)
[2020-04-16] MEDS: Aspirin E.C. 81 MG TABEC PO (07:40)
[2020-04-16] MEDS: Omeprazole 20 MG CAPCR PO (07:40)
[2020-04-16] MEDS: Potassium Chloride 20 MEQ TABCR PO (07:40)
[2020-04-16] MEDS: Ibuprofen 400 MG TAB PO (08:51)
[2020-04-16] MEDS: Nystatin POWDER 15 GM JAR TP ×2 (09:04→19:48)
--- NOTE | 2020-04-16 10:17 | PDOC.CMPRO ---
- If Service Date Differs Date of service: 04/16/20 Time of Service: 10:17 Care Management Progress Note S/O: Melissa was lying in bed when CM met with her. There was a change in her mental status this morning which was felt to be due to CO2 retention. She was placed on bipap for a while and seemed to improve mentally. When CM met with her her only complaint was leg pain and her nurse prepared to medicate her for same. Melissa will likely be ready to return to the [facility] early this week and they need to be contacted on Friday re: approval for Trilogy machine or bipap. A: Melissa is n 84 year old woman admitted on 04/10/20 with dehydration aqnd bilateral pneumonia P: Melissa will return to the [facility], her residence, when ready per MD. MD recommending BIPAP for use at [facility] upon discharge; undetermined if Melissa will tolerate at this time. She will transport via EMS-vs-W[facility] Van; dependent on mobility. CM will continue to support patient, family and discharge planning needs.
--- NOTE | 2020-04-16 10:29 | PGE_ITS ---
Date of Service Date of service: 04/16/20 Time of Service: 10:29 Assessment and Plan Assessment and plan (1) Encephalopathy acute: Start date: 04/16/20 Start time: 10:34 Status: Acute Assessment and plan: Liekly due to CO2 retention. Will place on bipap and reevaluate this afternoon repeat BMP Will need to work on setting for bipap effectivess Echo for Friday (2) Bilateral pneumonia: Start date: 04/16/20 Start time: 10:41 Status: Ruled-out Assessment and plan: CXR with atelectasis only Finished 5 day course zosyn Passed swallow eval. COVID-19 negative. Anticipate discharge to [facility] on Friday (3) Mesenteric panniculitis: Start date: 04/16/20 Start time: 10:41 Status: Suspected Assessment and plan: Clinically much improved without any intervention other than bowel rest, antibiotics, fluids. Continue current tx. Tolerating regular diet (4) Vaginal bleeding: Start date: 04/16/20 Start time: 10:41 Status: Acute Assessment and plan: Due to atrophic vaginal mucosa. No evidence of PREPARER MAKING DEPARTMENT malignancy by imaging or exam, per PREPARER MAKING DEPARTMENT. Continue steroid cream. (5) Hypotension: Start date: 04/16/20 Start time: 10:41 Status: Resolved Assessment and plan: D/c IVF monitor BP (6) Intractable generalized idiopathic epilepsy without status epilepticus: Start date: 04/16/20 Start time: 10:45 Status: Chronic Assessment and plan: Continue depakote and primidone for now, per Dr Car. Primidone/phenobarb levels pending. Depakote level low. EEG with encephalopathy. (7) Dehydration: Start date: 04/16/20 Start time: 10:45 Status: Resolved Assessment and plan: Encourage PO intake, patient more awake, D/C IVF (8) DVT prophylaxis: Start date: 04/16/20 Start time: 10:45 Status: Acute Assessment and plan: Continue SC heparin. (9) Discharge planning issues: Start date: 04/16/20 Start time: 10:45 Status: Acute Assessment and plan: DNR/DNI Repeat COVID for possible discharge on Friday back to [facility] to coordinate above case discussed with Dr. Ruiz who is in agreement. Subjective Subjective Patient reports: other Interval history since last seen: She was not on bipap last night, per nursing it was not working oxygen level was 88% on bipap. CO2 increased by am labs. Stat ABG ordered as patient was confused today. RT unable to obtain abg. Will place on bipap and recheck bmp this afternoon for CO2, will also obtain echo tomorrow to r/o PHTN, right sided HF Exam Narrative Exam Narrative: General: Elderly obese female, confused today unable to answer questions, sitting up in bed oxygen not in nares, looks confused and tired HEENT: EOMI, MMM when awake Cardiovascular: RRR, no m/r/g Lungs: LSC no wheezing, rhonchi, on 2 liters at baseline Gastrointestinal: soft, nontender, nondistended, bsx4 : has a goodwin Extremities: 3+ BLE edema, which she states is baseline Objective Last Vital Signs Temp 37.4 C 04/16/20 07:13 Pulse 81 04/16/20 09:56 Resp 13 04/16/20 09:56 BP 167/88 H 04/16/20 07:13 Pulse Ox 94 04/16/20 10:09 Laboratory Results - last 24 hr 04/15/20 04/16/20 04/16/20 11:00 06:40 06:40 WBC 5.50 D RBC 3.46 L Hgb 12.1 Hct 37.9 MCV 109.5 H MCH 35.0 H MCHC 31.9 L RDW 15.0 H Plt Count 137 MPV 10.7 Sodium 143 Potassium 4.9 Chloride 107 Carbon Dioxide 32.7 H Anion Gap 3.3 BUN 7 Creatinine 0.42 L Estimated GFR/1.73 m2 >= 60.00 Glucose 80 Calcium 8.8 Magnesium 1.8 COVID-19 PCR Cancelled Nasopharyn COVID-19 PCR Cancelled Ref Test Perform Site Cancelled
[2020-04-16 10:40] LABS: BE 8 mmol/L (-2-3); HCO3 32 mmol/L (22-26); pCO2 46 mmHg (35-45); pH 7.45 (7.35-7.45); pO2 75 mmHg (80-105); sO2 96 % (95-98); tCO2 29 mmol/L (23-27)
[2020-04-16 10:42] LABS: FIO2 30 %; Site Right Radial
[2020-04-16 14:36] LABS: Anion Gap 3.8 mmol/L (3-11); BUN 7 mg/dL (7-18); CO2 29.2 mmol/L (21.0-32.0); CREATININE 0.66 mg/dL (0.55-1.02); Calcium 8.7 mg/dL (8.5-10.1); Chloride 106 mmol/L (98-107); Glucose 123 mg/dL (74-106); Potassium 5.3 mmol/L (3.5-5.1); Sodium 139 mmol/L (136-145)
[2020-04-16] MEDS: Hydrocortisone SOD SUC. 100 MG VIAL 50 MG IVP (16:33)
[2020-04-16] MEDS: Furosemide 40 MG/4 ML VIAL IVP (16:33)
[2020-04-16 18:45] LABS: D-Dimer 623 ng/mlFEU (<500)
--- NOTE | 2020-04-16 19:12 | NUR.NOTE ---
Nursing Note: 04/16/2020 19:13 Patient continues to be incontinent of stool. Dinner last night (04/15),tonight and lunch today, 04/16, contained dairy and nursing staff notified the kitchen of patient's dairy allergy each time. The kitchen continues to send dairy on the patient's trays. The patient continues to be incontinent of diarrhea, which was less frequent today than yesterday and appears to be softened into more formed regular stool. Nursing staff needs to continue to monitor for dairy intake.
[2020-04-16] MEDS: Atorvastatin 10 MG TAB PO (19:47)
[2020-04-16 20:46] LABS: SARS-CoV-2 RNA Source Nasal/Nares
--- NOTE | 2020-04-17 | DI.US_ITS ---
APPROVED REPORT EXAM: Comprehensive 2D, Doppler, and color-flow Echocardiogram Patient Location: In-Patient Room/Bed: 225 Reading Instructor: Nataliia Tsang RDCS (AE) Indications: Right sided heart failure, r/o pulmonary htn Other Information Technically limited study due to inability to position patient. Conclusion Normal left ventricular wall thickness and chamber size. Estimated ejection fraction is 55%. No seg mental wall motion abnormalities are identified The right ventricle is normal in size. Right ventricle systolic function appears normal Both atria are normal in size The aortic valve is sclerotic and trileaflet without regurgitation or stenosis The mitral valve is structurally normal with trace to mild regurgitation Structurally normal tricuspid valve. Trace tricuspid regurgitation, with jet inadequate to assess ri ght ventricular systolic pressure The pulmonic valve is not well visualized Wall motion Left Ventricle The left ventricle is normal size. The left ventricular systolic function is normal. The left ventric ular ejection fraction is within the normal range. There is normal left ventricular wall thickness. T here is normal LV segmental wall motion. There is no ventricular septal defect visualized. LVEF is 55 %. Right Ventricle The right ventricle is normal size. Right ventricular systolic function is grossly normal. Atria The left atrium size is normal. The right atrium size is normal. The interatrial septum is intact wit h no evidence for an atrial septal defect. Aortic Valve The Aortic valve is sclerotic. Aortic valve is trileaflet. There is no aortic valvular stenosis. No a ortic regurgitation is present. Mitral Valve The mitral valve is normal in structure. No evidence of mitral valve stenosis. Trace to mild mitral r egurgitation. Tricuspid Valve The tricuspid valve is normal in structure. There is no tricuspid valve stenosis. Trace tricuspid reg urgitation. Unable to assess PA pressure. Pulmonic Valve Pulmonic valve is not well visualized. There is no pulmonic valvular stenosis. There is no pulmonic v alvular regurgitation. Great Vessels The aortic root is normal in size. The ascending aorta is normal in size. Aortic arch is normal in ca liber. IVC is normal in size and collapses >50% with inspiration. Pericardium There is no pericardial effusion. 2D Dimensions IVSD d PLAX 0.95 cm F: 0.6-1.0 LV Vol A2C d MOD 119.0 mL LVPW d PLAX 0.81 cm F: 0.6 - 1.0 LV Vol A4C d MOD 75.6 mL LVID d PLAX 4.31 cm F: 3.8 - 5.2 LA vol/ BSA A4C s A-L 18.6 mL/m2 LVDs 3.05 cm F: 2.2 - 3.5 LA Area A4C s MOD 14.06 cm2 Ao Root d 2.79 cm F: 2.7 - 3.3 LV EF A4C MOD 54.4 % RA Area A4C 11.85 cm2 LV EF A2C MOD 55.0 % RA Vol/ BSA A4C s A-L 12.4 mL/m2 LV EF Biplane MOD 54.2 % Ao Asc Diam d 3.05 cm F: 2.3 - 3.1 SV 55.78 mL LV EF Teichholz 56.1 % SV Index 26.44 mL/m2 LVEF (Knox's) 54.19 % F: 54 - 74 LV Volume 75.87 mL F: 46 - 106 LV Volume Index 35.95 mL/m2 F: 29 - 61 LV Vol Biplane MOD 102.9 mL FS 29.00 % M-Mode TAPSE 2.66 cm (M/F) >1.7 LV Diastology MV E' medial 0.069 (>0.07 m/s) E/A Ratio 1.0 LV E/e MED 11.55 (<14) MV E Vmax 0.80 (0.4-1.3 m/s) MV E' lateral 0.078 (>0.1 m/s) MV A Vmax 0.80 (0.4-1.3 m/s) LV E/e LAT 10.25 (<14) MV E/A Ratio 0.95 MV E/E' medial 11.59 MV E/E' lateral 10.29 Aortic Valve LVOT Area 3.01 cm2 AoV Area Vmax 1.84 cm2 LVOT Vmax 0.89 m/s AoV Area/ BSA (Vmax) 0.87 cm2/m2 LVOT Mean Alistair. 0.62 m/s ISRA Mean Alistair. 1.90 cm2 LVOT Peak Grad 3.2 mmHg ISRA Mean [place]ist[place]. Index 0.90 cm2/m2 LVOT Mean Grad 1.7 mmHg LVOT VTI 0.222 m LVOT Diam s 1.95 cm AoV Vmax 1.45 m/s Velocity Ratio 0.61 AoV Mean Alistair. 0.98 m/s AoV Peak Grad 8.5 mmHg LVOT SV 66.64 mL AoV Mean Grad 4.4 mmHg AoV VTI 0.330 m AoV Area VTI 2.02 cm2 AoV Area/ BSA (VTI) 0.96 cm/m2 Mitral Valve MV DT 193 (160-240 msec) MV PHT 56 msec MV Area PHT 3.92 cm2 Pulmonary Valve PV Vmax 1.23 (0.5-1.5 m/s) RVOT Peak Gr. 3.31 mmHg PV Peak Grad 6.1 mmHg RVOT Mean Gr. 1.85 mmHg PV Mean Grad 3.3 mmHg RVOT VTI 0.195 m PV VTI 0.264 m RVOT Vmax 0.91 m/s
[2020-04-17] MEDS: Heparin 5,000 UNITS/ML VIAL 5000 UNITS SC ×3 (02:12→17:12)
[2020-04-17 03:42] VITALS: BP 129/74; PULSE 74; RESP 18; TEMP 37.2; O2SAT 93
[2020-04-17 07:10] LABS: Abs Immature Grans 0.04 10^3/uL (0.0-0.06); Absolute Basophil Count 0.05 10^3/uL (0.0-0.2); Absolute Eosinophil Count 0.06 10^3/uL (0.0-0.7); Absolute Lymphocyte Count 2.81 10^3/uL (1.2-3.4); Absolute Neutrophil Count 2.04 10^3/uL (1.2-6.7); Basophils % 0.9; Eosinophils % 1.1; HCT 35.4 % (36.0-46.0); HGB 11.2 g/dL (11.2-15.7); Immature Grans % 0.7; MCH 34.4 pg (27.0-33.0); MCHC 31.6 % (32.0-36.0); MCV 108.6 fL (80-95); MPV 10.7 fL (8.0-11.0); Monocytes % 12.3; Neutrophils % 35.7; Nucleated RBC 0 %; Platelet Count 141 10^3/uL (130-400); RBC 3.26 10^6/uL (3.93-5.22); RDW 14.7 % (11.7-14.6); RDW-SD 59.2 fL
[2020-04-17 07:32] LABS: Anion Gap 2.4 mmol/L (3-11); CO2 34.6 mmol/L (21.0-32.0); CREATININE 0.59 mg/dL (0.55-1.02); Calcium 8.7 mg/dL (8.5-10.1); Chloride 104 mmol/L (98-107); NT-proBNP 691 pg/mL (<300); Potassium 4.4 mmol/L (3.5-5.1); Sodium 141 mmol/L (136-145)
[2020-04-17 07:35] LABS: Diff Comment Diff Reviewed; Lymphocytes % 49.3; Macrocytosis 2+; Poikilocytes 1+; Polychromasia Present
[2020-04-17 07:52] LABS: Glucose 71 mg/dL (74-106)
[2020-04-17 07:53] LABS: BUN 14 mg/dL (7-18)
--- NOTE | 2020-04-17 08:28 | DI.RAD_ITS ---
EXAM: XR CHEST 1V IN DI DEPT CLINICAL HISTORY: r/o pleural effusion TECHNIQUE: 2D digital imaging was performed. COMPARISON: CR XR PORTABLE CHEST AP from 04/13/2020 FINDINGS: The exam is suboptimally penetrated. The lungs are poorly inflated. Heart size normal. Calcificati on is seen at the aortic arch. The lungs show mild fibrotic changes. No superimposed infiltrate, ef fusion or pulmonary edema is seen. There are degenerative changes of both shoulders well as is thora cic spine.. IMPRESSION: No acute pulmonary findings. DATA REPOSITORY: RADIATION DOSE DELIVERED:
[2020-04-17 08:49] VITALS: RESP 12; O2SAT 92
[2020-04-17] MEDS: Propranolol 60 MG CAPCR PO (08:53)
[2020-04-17] MEDS: Nystatin POWDER 15 GM JAR TP ×2 (08:53→19:57)
[2020-04-17] MEDS: Aspirin E.C. 81 MG TABEC PO (08:53)
[2020-04-17] MEDS: Carbidopa 25/Levodopa 100 TAB PO ×3 (08:54→19:57)
[2020-04-17] MEDS: Magnesium Oxide 400 MG TAB PO ×3 (08:54→19:57)
[2020-04-17] MEDS: Omeprazole 20 MG CAPCR PO (08:54)
[2020-04-17] MEDS: Acetaminophen 325 MG TAB 650 MG PO ×2 (08:54→13:52)
[2020-04-17] MEDS: Ibuprofen 400 MG TAB PO ×2 (08:54→16:28)
[2020-04-17] MEDS: Divalproex Sodium 500 MG TAB.ER.24H 1000 MG PO ×2 (08:54→19:57)
[2020-04-17] MEDS: Folic Acid 1 MG TAB PO (09:00)
[2020-04-17] MEDS: Furosemide 20 MG/2 ML VIAL IVP ×2 (09:01→16:28)
--- NOTE | 2020-04-17 09:54 | RESPIRATORY ---
RT tried to set patient up with Trilogy vent on this admission. Pt is a resident at [facility], Care Management called [facility] and they ([facility]) wish to set patient up with their own BiPAP system rather than the Trilogy. [facility] was notified of the decision this AM.
[2020-04-17 10:04] LABS: Hemoglobin A1C 4.6 % (<5.7)
--- NOTE | 2020-04-17 10:47 | W.NUTRFU ---
Date of service: 04/17/20 Time of Service: 10:47 Nutritional Follow up NOTE: Diet advanced to minced and moist with thin liquids 04/14. PO intake excellent, typically 100% of meals. Continues with acute encephalopathy, Will continue to follow. Time Spent in Nutritional Counseling and Treatment: 0
[2020-04-17 11:40] VITALS: BP 118/68; PULSE 74; RESP 18; TEMP 36.7; O2SAT 95
[2020-04-17 12:07] LABS: SARS-CoV-2 RNA Not Detected (NotDetected)
--- NOTE | 2020-04-17 12:28 | W.PM.PROGNOT ---
Date of Service Date of service: 04/17/20 Time of Service: 10:30 Assessment and Plan Assessment and plan (1) Acute exacerbation of CHF (congestive heart failure): Start date: 04/17/20 Start time: 11:00 Status: Acute Assessment and plan: Suspected PHTN in setting of SULAIMAN unable to evaluate due body habitus. Unable to obtain pulmonary pressures, though given clinical symptoms and POCUS with B lines suspect CHF acutely new. Has gained net 7.5 L since admission along with elevated BNP since admission Per wt she has gained 5 kg over 4 days. Sandra quintana will give low dose lasix and continue to monitor. Receiving 20 mg furosemide BID. Continue BIPAP as directed. Qualifiers: Heart failure type: diastolic Qualified Code(s): I50.33 - Acute on chronic diastolic (congestive) heart failure (2) Pulmonary hypertension: Start date: 04/17/20 Start time: 13:35 Status: Acute Assessment and plan: Contiue BIPAP as directed. Continue supplementary O2. as above from above (3) Encephalopathy acute: Start date: 04/17/20 Start time: 13:35 Status: Resolved Assessment and plan: Likely due to CO2 retention. Improved with bipap, AAOx3 Will need to work on setting for bipap effectivess Echo revealing Conclusion Normal left ventricular wall thickness and chamber size. Estimated ejection fraction is 55%. No segmental wall motion abnormalities are identified The right ventricle is normal in size. Right ventricle systolic function appears normal Both atria are normal in size The aortic valve is sclerotic and trileaflet without regurgitation or stenosis The mitral valve is structurally normal with trace to mild regurgitation Structurally normal tricuspid valve. Trace tricuspid regurgitation, with jet inadequate to assess right ventricular systolic pressure The pulmonic valve is not well visualized (4) Mesenteric panniculitis: Start date: 04/17/20 Start time: 13:37 Status: Suspected Assessment and plan: Clinically much improved without any intervention other than bowel rest, antibiotics, fluids. Continue current tx. Tolerating regular diet (5) Vaginal bleeding: Start date: 04/17/20 Start time: 13:37 Status: Ruled-out Assessment and plan: Due to atrophic vaginal mucosa. No evidence of CATTLE BRANDER malignancy by imaging or exam, per CATTLE BRANDER. Continue steroid cream. (6) Intractable generalized idiopathic epilepsy without status epilepticus: Start date: 04/17/20 Start time: 13:38 Status: Chronic Assessment and plan: Continue depakote and primidone for now, per Dr Car. Primidone/phenobarb levels pending. Depakote level low. EEG with encephalopathy. (7) DVT prophylaxis: Start date: 04/17/20 Start time: 13:39 Status: Acute Assessment and plan: Continue SC heparin. (8) Discharge planning issues: Start date: 04/17/20 Start time: 13:39 Status: Acute Assessment and plan: DNR/DNI Will return to [facility] when medically ready at this time she is still requiring hosptialization above case discussed with Dr. Ruiz who is in agreement. Subjective Subjective Patient reports: feels better Interval history since last seen: Pleasant and lucid, she is doing much better than yesterday. She complained of pain in her bottom, there is an ulcer will consult Wound. Denied abdominal tenderness, chest pain, SOB. She expresses interest in returning home to the [facility]. Exam Narrative Exam Narrative: Patient is sitting up and conversant. Nontender abdomen. B/l lower extremity edema. CTAB, diminished in the bases. RRR, no murmurs, gallops, rubs appreciated. Const General: cooperative and no acute distress HENMT Head: normal to inspection Ears: hearing grossly normal bilaterally Chest Chest: normal inspection of the chest Resp Effort & Inspection: normal respiratory effort and other (Diminished lung sounds in the bases) Cardio Jugular venous pressure: no JVD Rate: regular rate Rhythm: regular rhythm Heart Sounds: S1 normal and S2 normal GI Inspection: distended Back/Spine/Pelvis Other: stage 2 ulcer in the region of the sacrum Back/spine/pelvis image: 1. Extrem Right lower extremity: foot Details: edema Left lower extremity: foot Details: edema Objective Last Vital Signs Temp 37.2 C 04/17/20 03:42 Pulse 74 04/17/20 03:42 Resp 18 04/17/20 03:42 BP 129/74 04/17/20 03:42 Pulse Ox 92 04/17/20 08:49 Laboratory Results - last 24 hr 04/15/20 04/16/20 04/16/20 11:00 14:05 17:15 WBC RBC Hgb Hct MCV MCH MCHC RDW Plt Count MPV Immature Gran % Neutrophils % Lymphocytes % Monocytes % Eosinophils % Basophils % Nucleated RBC % Absolute Neutrophils Absolute Lymphocytes Absolute Monocytes Absolute Eosinophils Absolute Basophils RBC Morphology Polychromasia Poikilocytosis Macrocytosis D-Dimer 623 H Sodium 139 Potassium 5.3 H Chloride 106 Carbon Dioxide 29.2 Anion Gap 3.8 BUN 7 Creatinine 0.66 Estimated GFR/1.73 m2 >= 60.00 Glucose 123 H Hemoglobin A1c Calcium 8.7 NT-Pro-B Natriuret Pep SARS-CoV-2 Source Nasal/nares SARS-CoV-2 (PCR) Not detected 04/17/20 04/17/20 04/17/20 06:15 06:15 06:15 WBC 5.70 RBC 3.26 L Hgb 11.2 Hct 35.4 L MCV 108.6 H MCH 34.4 H MCHC 31.6 L RDW 14.7 H Plt Count 141 MPV 10.7 Immature Gran % 0.7 Neutrophils % 35.7 Lymphocytes % 49.3 Monocytes % 12.3 Eosinophils % 1.1 Basophils % 0.9 Nucleated RBC % 0 Absolute Neutrophils 2.04 Absolute Lymphocytes 2.81 Absolute Monocytes 0.70 Absolute Eosinophils 0.06 Absolute Basophils 0.05 RBC Morphology See below Polychromasia Present Poikilocytosis 1+ Macrocytosis 2+ D-Dimer Sodium 141 Potassium 4.4 Chloride 104 Carbon Dioxide 34.6 H Anion Gap 2.4 L BUN 14 D Creatinine 0.59 Estimated GFR/1.73 m2 >= 60.00 Glucose 71 L D Hemoglobin A1c 4.6 Calcium 8.7 NT-Pro-B Natriuret Pep 691 H SARS-CoV-2 Source SARS-CoV-2 (PCR)
[2020-04-17 15:29] VITALS: BP 118/49; PULSE 78; RESP 18; TEMP 36.6; O2SAT 91
--- NOTE | 2020-04-17 16:23 | CMPROGNOTE_ITS ---
- If Service Date Differs Date of service: 04/17/20 Time of Service: 16:23 Care Management Progress Note S/O: Melissa was lying in bed when CM met with her. She reported that she is not exactly feeling better. She stated that she remembers talking with Dr. Araujo last week, but does not recall a conversation surrounding goals of care. She is not sure when she will be ready for discharge, but is looking forward to returning to the [facility]. CM covered up her toes, as she stated that her feet are freezing. She stated that she is happy with her care at [facility], but anxious to be home. CM called [facility] at the [facility] to discuss obtaining a Bipap vs Trilogy, which they agreed to a Bipap. CM will continue to follow. A: Melissa is n 84 year old woman admitted on 04/10/20 with dehydration and bilateral pneumonia P: Melissa will return to the [facility], her residence, when ready per MD. MD recommending BIPAP for use at [facility] upon discharge, which the [facility] has agreed to. She will transport via [facility]; dependent on mobility. CM will continue to support patient, family and discharge planning needs.
[2020-04-17] MEDS: Primidone 250 MG TAB 500 MG PO (17:13)
--- NOTE | 2020-04-17 18:20 | W.PALPGNOTE ---
Date of service: 04/17/20 Time of Service: 17:20 Assessment and Plan Assessment and plan (1) Acute exacerbation of CHF (congestive heart failure): Status: Acute Qualifiers: Heart failure type: diastolic Qualified Code(s): I50.33 - Acute on chronic diastolic (congestive) heart failure (2) Lichen sclerosus et atrophicus: Status: Acute (3) Bilateral pneumonia: Status: Ruled-out (4) Encephalopathy acute: Status: Resolved (5) Mesenteric panniculitis: Status: Suspected (6) Parkinsonism: Status: Acute (7) Anxiety: Status: Chronic (8) Physician orders for life-sustaining treatment (POLST) form indicates patient wish for [id number] status: Status: Acute (9) Palliative care patient: Status: Acute Assessment and plan: Melissa is mental status has cleared considerably. Her vaginal bleeding was found to be due to vaginal atrophy. Her pneumonia and mesenteric panniculitis is improving with rest hydration and antibiotics. She continues to have her seizure disorder and is on medications. She does have involuntary grimaces and an essential tremor. Anxiety has always played a lot into Melissa's decision making. What she said over and over again to me is that she does not want complex interventions and she wants to get back to the [facility] as soon as possible. She understands on some level that she needs help in making decisions. She is okay with oxygen, but not so certain she wants to do BiPAP. She is a little on the fence about this. She does want to go back to the [facility] and understands that her physical condition is poor at best. Medically I think we can do the best for Melissa by getting her back to the [facility] Thank you very much for this consult. I would like to follow Melissa back at the [facility] as she improves to help her to make medical decisions. I have spent more than 50% of time in counseling with this patient. Subjective Subjective Interval history since last seen: Melissa is an 84-year-old patient who resides at the [facility]. I have been her PCP for almost 20 years with the exception of the last few months when I was no longer medical records secretary at the [facility]. Her past medical history is notable for spinal stenosis requiring wheelchair assistance, anxiety disorder, hypertension, seizure disorder, essential tremor, hearing loss, vaginal atrophy, recent pneumonia, panniculitis, and encephalopathy. Over the years she has repeatedly told me that she does not want complicated interventions in her care. There was an incident about 15 years ago where she had chest pain and was transported to [facility], once down there refused a cardiac catheterization. It is common for her to make health choices choosing the least interventions. I saw Melissa last week for palliative care. Unfortunately her mental status was such that we could not have a real conversation. I am seeing her again today to determine goals of care. Melissa's mental status had cleared considerably. She was able to recount much of the recent and distant past. She really did not know what was going on with her except to say over and over again 'I need to get back with people like you I need to get home to the [facility] She was not so certain about all of the breathing apparatus although she does like the attention of it. She does feel that oxygen makes a big difference. We again reviewed what she has said to me in the past and she said I need to get back to the [facility] Melissa has 4 wonderful sons who love her dearly. Exam Narrative Exam Narrative: Melissa is lying in bed but was able to sit up with help. She had tremor worse on the right side. She had grimaces that seem like she could not control them. She did cry at times. Her heart was distant there was a murmur. Breathing was shallow. Abdomen today was nontender. She was able to smile but also was sad. Palliative Performance Scale % Ambulation Activity and Evidence of Disease Self Care Intake Level of Consciousness 100 Full Normal activity, no evidence of disease Full Normal Full 90 Full Normal activity, some evidence of disease Full Normal Full 80 Full Normal activity with effort, some evidence of disease Full Normal or reduced Full 70 Reduced Unable to do normal work, some evidence of disease Full Normal or reduced Full 60 Reduced Unable to do hobby or some housework, significant disease Occasional assist necessary Normal or reduced Full or confusion 50 Mainly sit/lie Unable to do any work, extensive disease Considerable assistance required Normal or reduced Full or confusion 40 Mainly in bed Unable to do any work, extensive disease Mainly assistance Normal or reduced Full, drowsy, or confusion 30 Totally bed bound Unable to do any work, extensive disease Total care Reduced Full, drowsy, or confusion 20 Totally bed bound Unable to do any work, extensive disease Total care Minimal sips Full, drowsy, or confusion 10 Totally bed bound Unable to do any work, extensive disease Total care Mouth care only Drowsy or coma 0 - - - - Patient Score: 40% Objective Last Vital Signs Temp 97.9 F 04/17/20 15:29 Pulse 78 04/17/20 15:29 Resp 18 04/17/20 15:29 BP 118/49 L 04/17/20 15:29 Pulse Ox 91 L 04/17/20 15:29 Laboratory Results - last 24 hr 04/15/20 04/16/20 04/17/20 11:00 17:15 06:15 WBC RBC Hgb Hct MCV MCH MCHC RDW Plt Count MPV Immature Gran % Neutrophils % Lymphocytes % Monocytes % Eosinophils % Basophils % Nucleated RBC % Absolute Neutrophils Absolute Lymphocytes Absolute Monocytes Absolute Eosinophils Absolute Basophils RBC Morphology Polychromasia Poikilocytosis Macrocytosis D-Dimer 623 H Sodium 141 Potassium 4.4 Chloride 104 Carbon Dioxide 34.6 H Anion Gap 2.4 L BUN 14 D Creatinine 0.59 Estimated GFR/1.73 m2 >= 60.00 Glucose 71 L D Hemoglobin A1c Calcium 8.7 NT-Pro-B Natriuret Pep 691 H SARS-CoV-2 Source Nasal/nares SARS-CoV-2 (PCR) Not detected 04/17/20 04/17/20 06:15 06:15 WBC 5.70 RBC 3.26 L Hgb 11.2 Hct 35.4 L MCV 108.6 H MCH 34.4 H MCHC 31.6 L RDW 14.7 H Plt Count 141 MPV 10.7 Immature Gran % 0.7 Neutrophils % 35.7 Lymphocytes % 49.3 Monocytes % 12.3 Eosinophils % 1.1 Basophils % 0.9 Nucleated RBC % 0 Absolute Neutrophils 2.04 Absolute Lymphocytes 2.81 Absolute Monocytes 0.70 Absolute Eosinophils 0.06 Absolute Basophils 0.05 RBC Morphology See below Polychromasia Present Poikilocytosis 1+ Macrocytosis 2+ D-Dimer Sodium Potassium Chloride Carbon Dioxide Anion Gap BUN Creatinine Estimated GFR/1.73 m2 Glucose Hemoglobin A1c 4.6 Calcium NT-Pro-B Natriuret Pep SARS-CoV-2 Source SARS-CoV-2 (PCR)
[2020-04-17 19:11] VITALS: BP 115/71; PULSE 75; RESP 18; TEMP 36.6; O2SAT 93
[2020-04-17] MEDS: Atorvastatin 10 MG TAB PO (19:56)
[2020-04-17] MEDS: Normal Saline Flush 10 ML SYR IVP (19:57)
[2020-04-17 22:50] VITALS: BP 119/61; PULSE 75; RESP 16; TEMP 37.1; O2SAT 95
[2020-04-18] MEDS: Heparin 5,000 UNITS/ML VIAL 5000 UNITS SC ×2 (01:24→09:40)
[2020-04-18 02:29] VITALS: BP 120/79; PULSE 73; RESP 18; TEMP 37.3; O2SAT 94
[2020-04-18] MEDS: Ibuprofen 400 MG TAB PO ×2 (02:31→10:15)
[2020-04-18 06:18] VITALS: BP 107/64; PULSE 70; RESP 18; TEMP 36.1; O2SAT 95
[2020-04-18 07:06] VITALS: BP 102/64; PULSE 71; RESP 17; TEMP 36.8; O2SAT 94
[2020-04-18] MEDS: Omeprazole 20 MG CAPCR PO (07:44)
[2020-04-18] MEDS: Acetaminophen 325 MG TAB 650 MG PO ×2 (07:44→12:59)
[2020-04-18] MEDS: Propranolol 60 MG CAPCR PO (08:22)
[2020-04-18] MEDS: Carbidopa 25/Levodopa 100 TAB PO ×2 (08:22→12:58)
[2020-04-18] MEDS: Nystatin POWDER 15 GM JAR TP (08:22)
[2020-04-18] MEDS: Aspirin E.C. 81 MG TABEC PO (08:22)
[2020-04-18] MEDS: Furosemide 20 MG/2 ML VIAL IVP (08:22)
[2020-04-18] MEDS: Magnesium Oxide 400 MG TAB PO ×2 (08:23→12:58)
[2020-04-18] MEDS: Folic Acid 1 MG TAB PO (08:23)
[2020-04-18] MEDS: Divalproex Sodium 500 MG TAB.ER.24H 1000 MG PO (08:23)
[2020-04-18] MEDS: Normal Saline Flush 10 ML SYR IVP (08:24)
--- NOTE | 2020-04-18 10:59 | DSE_ITS ---
Date of service: 04/18/20 Time of Service: 10:59 DS: Diagnosis Discharge Diagnosis (1) Acute exacerbation of CHF (congestive heart failure): Status: Acute (2) Lichen sclerosus et atrophicus: Status: Acute (3) Bilateral pneumonia: Status: Ruled-out (4) Encephalopathy acute: Status: Resolved (5) Mesenteric panniculitis: Status: Suspected (6) Parkinsonism: Status: Acute (7) Anxiety: Status: Chronic (8) Physician orders for life-sustaining treatment (POLST) form indicates patient wish for [id number] status: Status: Acute Discharge Plan Disposition Patient Disposition: SNF (LEVEL 1) [facility] Condition: Fair Discharge Details Reason For Visit: DEHYDRATION Admit Date/Time: 04/10/20 14:57 Admit Provider: Noelle Norton Attending Provider: Noelle Norton Primary Care Provider: Archana Foote [facility] Hospital Course: This is an 84-year-old patient who resides at the [facility] who presented to the ED for altered mental status. Her work up in the ED concerning for bibasilar pneumonia, thought to be aspiration, she appeared slightly dehydrated and was given fluids. she was started on empiric broad spectrum antibiotics while cultures pending. covid testing was negative. she was found to have mesenteric pannicultitis on CT, surgery consultation with no further recommendations at this time. Neurology was consulted for possible seizure activity as etilogy which was not supported by EEG did not support this. Per Dr Silva it is suggestive of a mild diffuse cerebral encephalopathy of broad differential including toxic-metabolic etiology. Her epileptic discharges appear less prominent compared to previous studies. No evidence of status epilepticus. She was seen by special equipment technician for her vaginal bleeding was thought to be secondary to external vulvar tissue changes. No evidence that she has a thickened endometrial stripe or adnexal pathology. It is unlikely that the bleeding is result uterine or adnexal etiology. Also found with lichen sclerosus which is advanced. She has distortion of her labial architecture and while this can not be reversed it can be treated to decrease the friability of the tissue. Recommends clobetasol 0.05% ointment to be applied to the vulva daily. The ointment is petroleum-based and with staying less than the cream. A tiny amount can be rubbed into the tissue around her urethra and vaginal orifice. There was no evidence of squamous cell cancer lesions. Recommends that the Clobetasol treatment be continued back at the [facility]. Her pneumonia and mesenteric panniculitis is improving with rest hydration and antibiotics. She slowly returned to her baseline. she was refusing bipap and requesting discharge back to the [facility]. she is eating and drinking and hemodynamically stable. she is oxygenating well on her baseline nasal canula. She is stable off antibiotics and will return by ambulance. discussed with DR Ruiz [place] Meds and New Rx's Prescriptions: New clobetasol 0.05 % Ointment 1 applic topical DAILY Qty: 60 RF: 0 Continued furosemide 20 mg tablet 20 mg PO DAILY RF: 0 skin cleanser,general Pad TP TID RF: 0 (DME) Oxygen Tank See Rx Instructions .ROUTE .MEDSUPPLY Qty: 1 RF: 0 nystatin 100,000 unit/gram powder 1 applic TP BID RF: 0 folic acid 1 mg tablet 1 mg PO DAILY RF: 0 carbidopa-levodopa [Sinemet] 25-100 mg tablet 2 tab PO TID RF: 0 acetaminophen 500 mg capsule 500 mg PO TID PRNRF: 0 ICaps AREDS 1 EACH tablet,delayed release (DR/EC) 1 cap PO BID RF: 0 divalproex 500 mg Tablet Extended Release 24 Hr 1,000 mg PO BID RF: 0 atorvastatin 10 mg tablet 10 mg PO QPM RF: 0 primidone 250 MG tablet 500 mg PO DAILY RF: 0 propranolol 60 MG capsule,extended release 24 hr 60 mg PO DAILY RF: 0 lactase 1 CAP tablet 1 cap PO DIRECTED RF: 0 Lactobacillus acidophilus [Acidophilus] Capsule 1 cap PO TID RF: 0 omeprazole 20 mg Tablet,Delayed Release (Dr/Ec) 20 mg PO DAILY RF: 0 magnesium oxide 400 mg magnesium Tablet 400 mg PO TID RF: 0 aspirin 81 mg tablet,delayed release (DR/EC) 81 mg PO DAILY Qty: 30 RF: 0 cholecalciferol (vitamin D3) [Vitamin D3] 125 mcg (5,000 unit) tablet 50,000 unit PO .once a month RF: 0 Discharge Instructions Instructions: Heart Failure (DC), Vaginal Atrophy (ED) Additional Instructions: Recommend clobetasol 0.05% ointment to be applied to the vulva daily. The ointment is petroleum-based and with staying less than the cream. A tiny amount can be rubbed into the tissue around her urethra and vaginal orifice. Wrap legs with ric to help reduce swelling. Stand Alone Forms: Nursing Discharge Form Referrals: Archana Foote [Primary Care Provider] - Activity:: Activity as Tolerated Equipment/Supplies:: No Equipment Needed Diet:: Low Sodium Discharge Orders Discharge Orders: Discharge Order (Routine); Ordered 04/18/20 Ordered By: Alba Overton DS: Summary Status at Discharge Functional status at discharge: bed bound Overall status at discharge: patient is progressing back to baseline Mental Status: mental status grossly normal Speech and Movement: speech and movement normal Mood: congruent mood Affect: normal affect Exam Const General: cooperative and no acute distress HENMT Head: normal to inspection Ears: hearing grossly normal bilaterally Chest Chest: normal inspection of the chest Resp Effort & Inspection: normal respiratory effort and other (Diminished lung sounds in the bases) Cardio Jugular venous pressure: no JVD Rate: regular rate Rhythm: regular rhythm Heart Sounds: S1 normal and S2 normal GI Inspection: distended Extrem Right lower extremity: foot Details: edema Left lower extremity: foot Details: edema Psych Mental Status: mental status grossly normal Speech and Movement: speech and movement normal Mood: congruent mood Affect: normal affect DS: Data Vitals/I&O Vitals and I&O: Vital Signs Temperature 36.8 C 04/18/20 07:06 Temperature Source Skin 04/18/20 07:06 Pulse 71 04/18/20 07:06 Pulse Rhythm Regular 04/18/20 07:44 Pulse 80 04/14/20 21:02 Respiratory Rate 17 04/18/20 07:06 Respiratory Effort Non-Labored 04/18/20 07:44 Respiratory Depth Normal 04/18/20 07:44 Respiratory Pattern Normal 04/18/20 07:44 Blood Pressure 102/64 04/18/20 07:06 Blood Pressure Mean 69 04/14/20 21:01 Blood Pressure Position Supine 04/14/20 16:10 Pulse Oximetry 94 04/18/20 07:06 Oxygen Delivery Method Nasal Cannula 04/18/20 07:06 Oxygen Flow Rate 2 04/18/20 07:06 Fraction of Inspired Oxygen (FIO2) 24 04/18/20 01:28 Pain Level 3 04/18/20 10:15 Comment 04/16/20 11:19 Intake & Output 04/17/20 04/17/20 04/18/20 11:59 23:59 11:59 Intake Total 230 / 230 300 / 300 Output Total 600 / 1400 800 / 1400 1999 Balance -600 / -1170 -570 / -1170 -1700 / -1700 Weight 99.6 kg 98.5 kg Intake: IV Oral 220 / 220 290 / 290 Output: Urine 600 / 1400 800 / 1400 1999 Other: Urine Color Yellow Yellow Yellow Urine Appearance Clear Clear Clear Stool Size Small Large Small Stool Characteristics Soft Soft Soft Brown Brown Brown Voiding Methods Indwelling Catheter Data Completed and Pending Labs on day of discharge: Labs from last 24 hours 04/15/20 11:00 SARS-CoV-2 (PCR) Not detected Preliminary micro results at discharge 04/13/20 16:18 Blood Culture - Preliminary Blood NO GROWTH 96 HOURS 04/13/20 16:00 Blood Culture - Preliminary Blood NO GROWTH 96 HOURS [facility] Medical History (Updated 04/17/20 @ 13:37 by Katie Mcclelland NP) Anxiety 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 KERR S/P RIGHT EYE EXTRACTION 10/05/13; DR. KERR Physical deconditioning Postmenopausal bleeding (04/24/91) Tension type headache Urgency of urination Vaginal spotting (01/26/16) Surgical History Cholecystectomy Extraction of cataract 09/21/13; LEFT 10/05/13; RIGHT H/O tubal ligation Family History Mother Essential hypertension Personal history of malignant neoplasm BREAST Heart disease Stroke Father Personal history of malignant neoplasm BONE Sister Personal history of malignant neoplasm BREAST Heart disease Cirrhosis, alcoholic Transplanted heart Son Arthritis Social History Smoking/Tobacco Use Status: Never Smoking risk assessment performed?: Yes Alcohol Intake: never Drug use: Never Substance use type: does not use Housing: correction Do you feel safe at home: Yes Do you feel safe in your relationship?: Yes Additional Social history: She lives at the [facility]. She has 4 grown children. She has never driven. She does not smoke, drink ETOH, or use illicit drugs.
[2020-04-18 11:23] VITALS: BP 92/55; PULSE 71; RESP 16; TEMP 36.5; O2SAT 92
--- NOTE | 2020-04-18 12:23 | NUR.NOTE ---
called report to nash Garcia. transport to pick pt up at 1300. Nursing Note:
--- NOTE | 2020-04-18 16:40 | CMDISCH_ITS ---
- If Service Date Differs Date of service: 04/18/20 Time of Service: 16:40 LACE Index Scoring Tool - Questions: Length of Stay (in days): 7 - 13 Acuity (Admit via E.D.?): Yes Comorbidities: Congestive Heart Failure E.D. Visits: 2 - Answers: Total Score: 12 Risk of Readmission: High Risk Care Management Discharge Reason for Hospitalization: Dehydration, Encephalopathy Discharge Plan: Melissa returned to the [facility] today at her baseline O2 settings of 2L. CM called and discussed this plan with Xochilt and Viji at the [facility]. Melissa did not tolerate the Bipap machine, and refused to wear it. She transported via [facility] ambulance. She is very happy to return to the [facility]. Patient/Family Education Needs: Review discharge instructions with Melissa and staff at the [facility], discussion of self care needs and goals of care. Services Needed at Discharge: [facility] ([facility]), Transportation ([facility])
== END 2020-04-18 13:01 | disposition skilled nursing facility (03) | DRG 177 ==
LOC: ER 16:52 → ICU 17:30 → MS 04-12 14:33 → ICU 05-17 08:40
PROVIDERS: Nurse Practitioner Family; Admitting Provider Internal Medicine; Emergency Provider Student in an Organized Health Care Education/Training Program; PCP Family Medicine; Visit Provider Internal Medicine
DX: J69.0 Pneumonitis due to inhalation of food and vomit (principal); G92 Toxic encephalopathy; I50.33 Acute on chronic diastolic (congestive) heart failure; K65.4 Sclerosing mesenteritis; K57.20 Diverticulitis of large intestine with perforation and abscess without bleeding; G40.804 Other epilepsy, intractable, without status epilepticus; E87.2 Acidosis; I95.9 Hypotension, unspecified; E86.0 Dehydration; Z66 Do not resuscitate; G20 Parkinson's disease; F32.9 Major depressive disorder, single episode, unspecified; I11.0 Hypertensive heart disease with heart failure; F41.9 Anxiety disorder, unspecified; G25.0 Essential tremor; H91.10 Presbycusis, unspecified ear; M54.5 Low back pain; M48.062 Spinal stenosis, lumbar region with neurogenic claudication; R10.32 Left lower quadrant pain; N93.9 Abnormal uterine and vaginal bleeding, unspecified; N90.4 Leukoplakia of vulva; R68.0 Hypothermia, not associated with low environmental temperature; G47.33 Obstructive sleep apnea (adult) (pediatric); I27.20 Pulmonary hypertension, unspecified
CPT/HCPCS: 36415; 73562; 80048; 80053; 80076; 82533; 82550; 82805; 85027; 87040; 87493; 92610; 93005; 93306; 95816; 96361; 96365; 96366; 96367; 99222; 99231; 99232; 99233; 99239; 99253; 99254; 99285; 99291; U0003; 36600; 70450; 71045; 73590; 74160; 76830; 76856; 80164; 80188; 81003; 81015; 83036; 83605; 83735; 83880; 84484; 85025; 85379; 87086; 93010; 93970; 94660; 94667; J1644; J1720; J1940; J1941; J2543; J2560; J3490; J7042

== ENCOUNTER → 2020-06-21 07:29 | Outpatient (BNVA) | payer MEDICARE, MEDICAID, SELFPAY | PROVIDERS: PCP Family Medicine; Referring Provider Family Medicine; Visit Provider Psychiatry & Neurology Neurology | DX: G40.319 Generalized idiopathic epilepsy and epileptic syndromes, intractable, without status epilepticus (principal); G25.0 Essential tremor; G20 Parkinson's disease | CPT/HCPCS: 99213 ==

== ENCOUNTER 2020-07-14 18:53 | Outpatient (REF) | payer MEDICARE, MEDICAID, SELFPAY ==
[2020-07-14 14:05] LABS: Anion Gap 6.8 mmol/L (3-11); BUN 28 mg/dL (7-18); CO2 34.2 mmol/L (21.0-32.0); CREATININE 0.5 mg/dL (0.55-1.02); Calcium 8.8 mg/dL (8.5-10.1); Chloride 105 mmol/L (98-107); Glucose 94 mg/dL (74-106); Potassium 4.6 mmol/L (3.5-5.1); Sodium 146 mmol/L (136-145)
[2020-07-14 14:13] LABS: Abs Immature Grans 0.02 10^3/uL (0.0-0.06); Absolute Basophil Count 0.06 10^3/uL (0.0-0.2); Absolute Eosinophil Count 0.03 10^3/uL (0.0-0.7); Absolute Lymphocyte Count 1.67 10^3/uL (1.2-3.4); Absolute Monocyte Count 0.87 10^3/uL (0.1-0.8); Absolute Neutrophil Count 2.94 10^3/uL (1.2-6.7); Basophils % 1.1; Eosinophils % 0.5; HCT 38.9 % (36.0-46.0); HGB 12.3 g/dL (11.2-15.7); Immature Grans % 0.4; Lymphocytes % 29.9; MCH 36.1 pg (27.0-33.0); MCHC 31.6 % (32.0-36.0); MCV 114.1 fL (80-95); MPV 10.9 fL (8.0-11.0); Monocytes % 15.6; Neutrophils % 52.5; Nucleated RBC 0 %; Platelet Count 113 10^3/uL (130-400); RBC 3.41 10^6/uL (3.93-5.22); RDW 15.3 % (11.7-14.6); RDW-SD 64.1 fL; WBC 5.59 10^3/uL (4.4-10.8)
[2020-07-14 15:08] LABS: Diff Comment RBC Morph Reviewed; Macrocytosis 2+; Polychromasia Present
[2020-07-14 15:58] LABS: VALPROIC ACID 19.3 ug/mL (50-100)
== END 2020-07-14 18:54 | disposition home or self-care (01) ==
LOC: NCHCN 18:53
PROVIDERS: PCP Family Medicine; Visit Provider Family Medicine
DX: I50.33 Acute on chronic diastolic (congestive) heart failure (principal); G40.319 Generalized idiopathic epilepsy and epileptic syndromes, intractable, without status epilepticus; Z51.81 Encounter for therapeutic drug level monitoring; G20 Parkinson's disease; E66.01 Morbid (severe) obesity due to excess calories; R53.1 Weakness
CPT/HCPCS: 80048; 80164; 85025

== ENCOUNTER → 2020-08-23 07:31 | Outpatient (BNVA) | payer MEDICARE, MEDICAID, SELFPAY | PROVIDERS: PCP Family Medicine; Referring Provider Family Medicine; Visit Provider Psychiatry & Neurology Neurology | DX: R69 Illness, unspecified (principal) ==

== ENCOUNTER → 2020-09-26 07:27 | Outpatient (BNVA) | payer MEDICARE, MEDICAID, SELFPAY | PROVIDERS: PCP Family Medicine; Referring Provider Family Medicine; Visit Provider Psychiatry & Neurology Neurology | DX: G40.319 Generalized idiopathic epilepsy and epileptic syndromes, intractable, without status epilepticus (principal); G25.0 Essential tremor; G20 Parkinson's disease | CPT/HCPCS: 99213 ==

== ENCOUNTER 2020-10-02 15:53 | Outpatient (REF) | payer MEDICARE, MEDICAID, SELFPAY ==
[2020-10-02 14:39] LABS: Anion Gap 4.8 mmol/L (3-11); BUN 18 mg/dL (7-18); CO2 34.2 mmol/L (21.0-32.0); CREATININE 0.5 mg/dL (0.55-1.02); Calcium 8.2 mg/dL (8.5-10.1); Chloride 102 mmol/L (98-107); Glucose 105 mg/dL (74-106); Potassium 4.3 mmol/L (3.5-5.1); Sodium 141 mmol/L (136-145)
== END 2020-10-02 15:54 | disposition home or self-care (01) ==
LOC: LBN 15:53
PROVIDERS: PCP Family Medicine; Visit Provider Family Medicine
DX: I50.33 Acute on chronic diastolic (congestive) heart failure (principal); F33.8 Other recurrent depressive disorders; G20 Parkinson's disease; G40.319 Generalized idiopathic epilepsy and epileptic syndromes, intractable, without status epilepticus; E66.01 Morbid (severe) obesity due to excess calories
CPT/HCPCS: 80048

== ENCOUNTER 2020-10-12 18:55 | Outpatient (REF) | payer MEDICARE, MEDICAID, SELFPAY ==
[2020-10-12 18:03] LABS: Anion Gap 3.5 mmol/L (3-11); BUN 24 mg/dL (7-18); CO2 39.5 mmol/L (21.0-32.0); CREATININE 0.5 mg/dL (0.55-1.02); Calcium 8.6 mg/dL (8.5-10.1); Chloride 104 mmol/L (98-107); Glucose 99 mg/dL (74-106); Magnesium 1.8 mg/dL (1.8-2.4); Sodium 147 mmol/L (136-145)
== END 2020-10-12 18:56 | disposition home or self-care (01) ==
LOC: LBN 18:55
PROVIDERS: PCP Family Medicine; Visit Provider Family Medicine
DX: I50.33 Acute on chronic diastolic (congestive) heart failure (principal); K55.1 Chronic vascular disorders of intestine; R06.09 Other forms of dyspnea; G40.319 Generalized idiopathic epilepsy and epileptic syndromes, intractable, without status epilepticus
CPT/HCPCS: 80048; 83735

== ENCOUNTER 2020-10-19 17:22 | Outpatient (REF) | payer MEDICARE, MEDICAID, SELFPAY ==
[2020-10-19 17:00] LABS: Anion Gap 3.1 mmol/L (3-11); BUN 19 mg/dL (7-18); CO2 37.9 mmol/L (21.0-32.0); CREATININE 0.5 mg/dL (0.55-1.02); Calcium 8.5 mg/dL (8.5-10.1); Chloride 103 mmol/L (98-107); Glucose 100 mg/dL (74-106); Potassium 4.3 mmol/L (3.5-5.1); Sodium 144 mmol/L (136-145)
== END 2020-10-19 17:23 | disposition home or self-care (01) ==
LOC: LBN 17:22
PROVIDERS: PCP Family Medicine; Visit Provider Family Medicine
DX: I50.33 Acute on chronic diastolic (congestive) heart failure (principal); G40.319 Generalized idiopathic epilepsy and epileptic syndromes, intractable, without status epilepticus; K55.1 Chronic vascular disorders of intestine; R60.0 Localized edema
CPT/HCPCS: 80048; 83735